=== PATIENT | female | born 1940 | race Caucasian/White ===

== ENCOUNTER 2022-11-28 13:21 | Observation (INO) ==
[2022-11-28 14:05] LABS: Basophils # (auto) 0.05 K/uL (0-0.2); Basophils % (auto) 0.7 %; Eosinophils # (auto) 0.07 K/uL (0-0.50); Eosinophils % (auto) 0.9 %; Hematocrit (blood only) 35.2 % (37.0-47.0); Hemoglobin 11.8 g/dl (12.0-16.0); Immature Granulocytes # (auto) 0.03 K/uL (0.01-0.20); Immature Granulocytes % (auto) 0.4 %; Lymphocytes # (auto) 1.29 K/uL (1.2-3.4); Mean Corpuscular Hemoglobin 30.6 pg (25.0-34.0); Mean Corpuscular Hgb Conc 33.5 g/dL (32.0-36.0); Mean Corpuscular Volume 91.2 fL (80.0-100.0); Mean Platelet Volume 9.9 fL (9.4-12.4); Monocytes # (auto) 0.63 K/uL (0.11-0.59); Monocytes % (auto) 8.3 %; Neutrophils # (auto) 5.54 K/uL (1.40-6.50); Neutrophils % (auto) 72.7 %; Platelet Count 156 K/uL (130-400); RDW Standard Deviation 42.4 fL (36.4-46.3); Red Blood Count 3.86 M/uL (4.20-5.40); White Blood Count 7.61 K/ul (4.8-10.8)
[2022-11-28] MEDS ORDERED: NITROGLYCERIN 2% OINTMENT 30GM TUBE EXT STA (14:12)
[2022-11-28 14:23] LABS: Albumin Globulin Ratio 1.4 (0.9-2); BUN Creatinine Ratio 13.5 (10-20); Bilirubin,Total 0.6 mg/dl (0.2-1.0); Calcium 9.2 mg/dl (8.6-10.3); Creatinine Clr Calc Pharmacy 30.1 ml/min; Est GFR (African American) 43.6 ml/min; Est GFR (Non-African American) 37.7 ml/min; Globulin 2.8 gm/dl (2.5-4.0); Potassium 3.4 mmol/L (3.5-5.1); Total Protein 6.8 gm/dl (6.0-8.3)
[2022-11-28 14:28] LABS: Troponin I High Sensitivity 7.7 pg/ml (0-14)
--- NOTE | 2022-11-28 14:29 | XRay Report ---
XR chest 1V not portable HISTORY: Chest pain, nonspecific COMPARISON: None. FINDINGS: No pneumothorax or no pleural effusions. The cardiac silhouette is mildly enlarged. No foca l lung consolidations to suggest pneumonia. No evidence for pulmonary edema. No acute fractures ident ified. IMPRESSION: Mild cardiomegaly. Otherwise, no acute process within the chest. ACT 112: Negative or not required by law. Electronically signed by: Goran Del Valle M.D. 11/28/2022 2:28 PM
--- NOTE | 2022-11-28 14:30 | Emergency Department Note ---
Impression & Plan Precordial chest pain, Vomiting ED Provider Note NAME: CHANTAL VARGAS AGE: 82 SEX: F : 1940 ARRIVES VIA: Ambulance INFORMANT: [Patient][family] ED PROVIDER(S): [Dylon Arreaga MD] CHIEF COMPLAINT: Cardiac assessment HISTORY OF PRESENT ILLNESS: The patient is an 82-year-old female who states that yesterday, she thought she was having some gas as she felt some discomfort across the chest. It seemed to start after she had eaten. It went away eventually. Today, when she first got up and around, she began having the same pain but it was more severe. It went into the back and her shoulders. She did vomit at one point. She was not short of breath. She has not had cough, cold or congestion. She has no history of [place], but she states that she is hypertensive. The patient states that on the way here, she was given around 3 sprays of nitroglycerin and 4 baby aspirin. Her pain is markedly improved. PMHx/PSHx: See Below SOCIAL HISTORY: See Below. PHYSICAL EXAM: GENERAL: Patient is in no acute distress. HEENT: No acute trauma, normocephalic atraumatic, mucous membranes moist, no na donato congestion. NECK: No stridor, no adenopathy, no meningismus, trachea is midline. LUNGS: Clear to auscultation bilaterally, no wheeze, no rhonchi, breath sounds equal. HEART: Without murmurs gallops or rubs, regular rate and rhythm. Chest: Nontender chest wall. ABDOMEN: Soft, mildly tender in the epigastrium, no distention. EXTREMITIES: No cyanosis or edema, full range of motion of all the joints without pain or difficulty, no signs for acute trauma. NEUROLOGIC: Oriented x 3, no acute motor or sensory deficits, no focal weakness. SKIN: No rash, no jaundice, no diaphoresis. DIFFERENTIAL DIAGNOSIS: Aortic dissection, [place], pancreatitis, biliary colic, acute cholecystitis, musculoskeletal pain, among others. EMERGENCY DEPARTMENT COURSE/PROCEDURES: Prior/Outside records reviewed: EMS notes. ECG per my interpretation: Indication was chest pain. The ECG shows a normal sinus rhythm with a rate of 77. LVH is present. There are some biphasic T waves and some T wave inversion in the lateral leads. There is no ST elevation, no PVCs. The QTc is 418. No old ECGs available for comparison. Continuous Cardiac Monitoring per my interpretation: An order was placed for continuous cardiac monitoring. The monitor shows a rate of 85 with normal sinus rhythm. MEDICAL DECISION MAKING: There is no leukocytosis. A very mild anemia was seen. There was a normal platelet count. The potassium was slightly low but not in need of emergent correction. A mild creatinine elevation was seen. No concerning liver enzyme elevation. No evidence for pancreatitis. The patient appeared to be in a euthyroid state. ECG showed a normal sinus rhythm, LVH was seen. No obvious ST elevation. Cardiac enzyme testing x1 was not consistent with acute cardiac injury. COVID test returned negative. Chest film did not show mediastinal widening, pneumonia or pneumothorax per my review. Chest CT did not show dissection. There was no pneumonia. An abnormality to the gallbladder was questioned. Gallbladder ultrasound showed what they felt was likely a normal gallbladder however, the study did show cysts on the liver making the gallbladder interpretation difficult, a CT of the abdomen/pelvis was recommended for better visualization if clinically indicated. The patient had presented with chest pain that resolved with nitroglycerin and aspirin. She was given nitroglycerin paste, 1 inch. She received IV saline, 500 cc. The patient is resting comfortably. Her blood pressure is controlled. She is not febrile. I do think the patient requires a hospital stay and further cardiac work-up. She will also need the liver further assessed. I did speak with the patient and family, I spoke with case management, the on-call hospitalist was consulted. DISPOSITION: Patient's presentation and findings warrant a hospital stay. Past Med/Surg History Medical History Hypertension Social History Smoking Status: Never smoker Preferred Language: Swedish Feels Safe at Home: Yes Allergies Allergies Allergy/AdvReac Type Severity Reaction Status Date / Time oxycodone Allergy Nausea Verified 11/28/22 13:51 Home Meds Home Medications Medication Instructions Recorded Confirmed aspirin 81 mg chewable tablet 81 mg PO DAILY 11/28/22 11/28/22 lisinopril 20 mg tablet 20 mg PO DAILY 11/28/22 11/28/22 loratadine 10 mg capsule 10 mg PO DAILY 11/28/22 11/28/22 metoprolol tartrate 25 mg tablet 25 mg PO DAILY 11/28/22 11/28/22 potassium chloride 20 mEq 20 meq PO BID 11/28/22 11/28/22 tablet,extended release(part/cryst) Results & Data (ED) Vital Signs Vital Signs - 24 hr 11/28/22 13:44 11/28/22 13:44 11/28/22 13:44 Temperature 36.5 C Temperature Source Oral Pulse Rate 85 Pulse Rate [Left Apical] Pulse Rate [Left Finger] Pulse Rhythm Regular Pulse Strength Normal Respiratory Rate 18 Respiratory Effort / Characteristics Non-Labored Spontaneous Respiratory Depth Normal Respiratory Pattern Regular Blood Pressure 140/67 Blood Pressure [Left Arm] Blood Pressure [Right Arm] Blood Pressure Mean 91 Blood Pressure Mean [Left Arm] Blood Pressure Mean [Right Arm] Blood Pressure Position Sitting Blood Pressure Position [Left Arm] Pulse Oximetry 98 95 95 Oxygen Delivery Method Room Air Room Air Room Air Sepsis Recent Fever Within 48 Hours No Sepsis New/Unexplained Change in Mental Status No Sepsis Action Taken by Nursing No Action Required 11/28/22 13:35 11/28/22 14:40 11/28/22 15:21 Temperature Temperature Source Pulse Rate 80 Pulse Rate [Left Apical] 75 Pulse Rate [Left Finger] 78 Pulse Rhythm Pulse Strength Respiratory Rate 20 19 Respiratory Effort / Characteristics Respiratory Depth Normal Respiratory Pattern Blood Pressure Blood Pressure [Left Arm] 138/80 Blood Pressure [Right Arm] 142/61 H Blood Pressure Mean Blood Pressure Mean [Left Arm] 99 Blood Pressure Mean [Right Arm] 88 Blood Pressure Position Blood Pressure Position [Left Arm] Sitting Pulse Oximetry 96 95 Oxygen Delivery Method Room Air Room Air Sepsis Recent Fever Within 48 Hours Sepsis New/Unexplained Change in Mental Status Sepsis Action Taken by Nursing 11/28/22 16:21 11/28/22 17:45 11/28/22 17:00 Temperature Temperature Source Pulse Rate 71 72 Pulse Rate [Left Apical] Pulse Rate [Left Finger] 70 Pulse Rhythm Pulse Strength Respiratory Rate 15 20 Respiratory Effort / Characteristics Respiratory Depth Respiratory Pattern Blood Pressure 134/66 Blood Pressure [Left Arm] Blood Pressure [Right Arm] 144/62 H Blood Pressure Mean 88 Blood Pressure Mean [Left Arm] Blood Pressure Mean [Right Arm] 89 Blood Pressure Position Blood Pressure Position [Left Arm] Pulse Oximetry 94 94 Oxygen Delivery Method Room Air Room Air Sepsis Recent Fever Within 48 Hours Sepsis New/Unexplained Change in Mental Status Sepsis Action Taken by Nursing 11/28/22 18:00 11/28/22 18:22 11/28/22 19:00 Temperature Temperature Source Pulse Rate 73 75 74 Pulse Rate [Left Apical] Pulse Rate [Left Finger] Pulse Rhythm Pulse Strength Respiratory Rate 24 16 24 Respiratory Effort / Characteristics Respiratory Depth Respiratory Pattern Blood Pressure 126/64 137/71 138/67 Blood Pressure [Left Arm] Blood Pressure [Right Arm] Blood Pressure Mean 84 93 90 Blood Pressure Mean [Left Arm] Blood Pressure Mean [Right Arm] Blood Pressure Position Blood Pressure Position [Left Arm] Pulse Oximetry 95 94 93 Oxygen Delivery Method Room Air Room Air Room Air Sepsis Recent Fever Within 48 Hours Sepsis New/Unexplained Change in Mental Status Sepsis Action Taken by Nursing 11/28/22 20:00 11/28/22 21:00 Temperature Temperature Source Pulse Rate 73 72 Pulse Rate [Left Apical] Pulse Rate [Left Finger] Pulse Rhythm Pulse Strength Respiratory Rate 20 23 Respiratory Effort / Characteristics Respiratory Depth Respiratory Pattern Blood Pressure 144/69 H 152/70 H Blood Pressure [Left Arm] Blood Pressure [Right Arm] Blood Pressure Mean 94 97 Blood Pressure Mean [Left Arm] Blood Pressure Mean [Right Arm] Blood Pressure Position Blood Pressure Position [Left Arm] Pulse Oximetry 93 95 Oxygen Delivery Method Room Air Room Air Sepsis Recent Fever Within 48 Hours Sepsis New/Unexplained Change in Mental Status Sepsis Action Taken by [facility] Medications Current Medication List: was personally reviewed by me Laboratory Data Attestation: I reviewed the patient's lab results. 11/28/22 13:40 11/28/22 13:40 Lab Results 11/28/22 11/28/22 11/28/22 Range/Units 13:40 13:40 14:08 WBC 7.61 (4.8-10.8) K/ul RBC 3.86 L (4.20-5.40) M/uL Hgb 11.8 L (12.0-16.0) g/dl Hct 35.2 L (37.0-47.0) % MCV 91.2 (80.0-100.0) fL MCH 30.6 (25.0-34.0) pg MCHC 33.5 (32.0-36.0) g/dL RDW Std Deviation 42.4 (36.4-46.3) fL RDW Coeff of Afia 13.0 (11.5-14.5) % Plt Count 156 (130-400) K/uL MPV 9.9 (9.4-12.4) fL Immature Gran % (Auto) 0.4 % Neut % (Auto) 72.7 % Lymph % (Auto) 17.0 % [place] % (Auto) 8.3 % Eos % (Auto) 0.9 % Baso % (Auto) 0.7 % Reticulocyte % (Auto) (0.5-2.0) % Neut # (Auto) 5.54 (1.40-6.50) K/uL Lymph # (Auto) 1.29 (1.2-3.4) K/uL [place] # (Auto) 0.63 H (0.11-0.59) K/uL Eos # (Auto) 0.07 (0-0.50) K/uL Baso # (Auto) 0.05 (0-0.2) K/uL Reticulocyte # (0.02-0.10) 10^6/uL Immature Gran # (Auto) 0.03 (0.01-0.20) K/uL APTT (21.0-31.0) Seconds PTT Ratio Sodium 139 (136-145) mmol/L Potassium 3.4 L (3.5-5.1) mmol/L Chloride 108 H (98-107) mmol/L Carbon Dioxide 23 (21-32) mmol/L Anion Gap 8 (3-11) BUN 18 (6-23) mg/dl Creatinine 1.33 H (0.6-1.2) mg/dl Est Cr Clr Drug Dosing 30.1 ml/min Est GFR ( Amer) 43.6 ml/min Est GFR (Non-Af Amer) 37.7 ml/min BUN/Creatinine Ratio 13.5 (10-20) Glucose 139 H (70-99(Fasting)) mg/dl Calcium 9.2 (8.6-10.3) mg/dl Magnesium 2.0 (1.7-2.4) mg/dl Iron (35-150) mcg/dl Transferrin (200-360) mg/dl Ferritin (8-388) ng/ml Total Bilirubin 0.6 (0.2-1.0) mg/dl AST 27 (13-39) U/L ALT 22 (7-52) U/L Alkaline Phosphatase 63 (34-104) U/L Troponin I High Sens 7.7 (0-14) pg/ml Total Protein 6.8 (6.0-8.3) gm/dl Albumin 4.0 (3.4-5.0) gm/dl Globulin 2.8 (2.5-4.0) gm/dl Albumin/Globulin Ratio 1.4 (0.9-2) Lipase 24 (11-82) U/L Vitamin B12 (180-914) pg/ml Folate (>5.38) ng/ml TSH 0.788 (0.300-4.500) uIu/ml SARS-CoV-2, RNA, NAAT (NEGATIVE) 11/28/22 11/28/22 11/28/22 Range/Units 19:38 19:46 20:12 WBC (4.8-10.8) K/ul RBC (4.20-5.40) M/uL Hgb 11.3 L (12.0-16.0) g/dl Hct 32.9 L (37.0-47.0) % MCV (80.0-100.0) fL MCH (25.0-34.0) pg MCHC (32.0-36.0) g/dL RDW Std Deviation (36.4-46.3) fL RDW Coeff of Afia (11.5-14.5) % Plt Count (130-400) K/uL MPV (9.4-12.4) fL Immature Gran % (Auto) % Neut % (Auto) % Lymph % (Auto) % [place] % (Auto) % Eos % (Auto) % Baso % (Auto) % Reticulocyte % (Auto) 1.5 (0.5-2.0) % Neut # (Auto) (1.40-6.50) K/uL Lymph # (Auto) (1.2-3.4) K/uL [place] # (Auto) (0.11-0.59) K/uL Eos # (Auto) (0-0.50) K/uL Baso # (Auto) (0-0.2) K/uL Reticulocyte # 0.05 (0.02-0.10) 10^6/uL Immature Gran # (Auto) (0.01-0.20) K/uL APTT 26.5 (21.0-31.0) Seconds PTT Ratio 0.9 Sodium (136-145) mmol/L Potassium (3.5-5.1) mmol/L Chloride (98-107) mmol/L Carbon Dioxide (21-32) mmol/L Anion Gap (3-11) BUN (6-23) mg/dl Creatinine (0.6-1.2) mg/dl Est Cr Clr Drug Dosing ml/min Est GFR ( Amer) ml/min Est GFR (Non-Af Amer) ml/min BUN/Creatinine Ratio (10-20) Glucose (70-99(Fasting)) mg/dl Calcium (8.6-10.3) mg/dl Magnesium (1.7-2.4) mg/dl Iron (35-150) mcg/dl Transferrin (200-360) mg/dl Ferritin (8-388) ng/ml Total Bilirubin (0.2-1.0) mg/dl AST (13-39) U/L ALT (7-52) U/L Alkaline Phosphatase (34-104) U/L Troponin I High Sens (0-14) pg/ml Total Protein (6.0-8.3) gm/dl Albumin (3.4-5.0) gm/dl Globulin (2.5-4.0) gm/dl Albumin/Globulin Ratio (0.9-2) Lipase (11-82) U/L Vitamin B12 (180-914) pg/ml Folate (>5.38) ng/ml TSH (0.300-4.500) uIu/ml SARS-CoV-2, RNA, NAAT NEGATIVE (NEGATIVE) 11/28/22 11/28/22 Range/Units 20:12 20:12 WBC (4.8-10.8) K/ul RBC (4.20-5.40) M/uL Hgb (12.0-16.0) g/dl Hct (37.0-47.0) % MCV (80.0-100.0) fL MCH (25.0-34.0) pg MCHC (32.0-36.0) g/dL RDW Std Deviation (36.4-46.3) fL RDW Coeff of Afia (11.5-14.5) % Plt Count (130-400) K/uL MPV (9.4-12.4) fL Immature Gran % (Auto) % Neut % (Auto) % Lymph % (Auto) % [place] % (Auto) % Eos % (Auto) % Baso % (Auto) % Reticulocyte % (Auto) (0.5-2.0) % Neut # (Auto) (1.40-6.50) K/uL Lymph # (Auto) (1.2-3.4) K/uL [place] # (Auto) (0.11-0.59) K/uL Eos # (Auto) (0-0.50) K/uL Baso # (Auto) (0-0.2) K/uL Reticulocyte # (0.02-0.10) 10^6/uL Immature Gran # (Auto) (0.01-0.20) K/uL APTT (21.0-31.0) Seconds PTT Ratio Sodium (136-145) mmol/L Potassium (3.5-5.1) mmol/L Chloride (98-107) mmol/L Carbon Dioxide (21-32) mmol/L Anion Gap (3-11) BUN (6-23) mg/dl Creatinine (0.6-1.2) mg/dl Est Cr Clr Drug Dosing ml/min Est GFR ( Amer) ml/min Est GFR (Non-Af Amer) ml/min BUN/Creatinine Ratio (10-20) Glucose (70-99(Fasting)) mg/dl Calcium (8.6-10.3) mg/dl Magnesium (1.7-2.4) mg/dl Iron 24 L (35-150) mcg/dl Transferrin 170 L (200-360) mg/dl Ferritin 284.8 (8-388) ng/ml Total Bilirubin (0.2-1.0) mg/dl AST (13-39) U/L ALT (7-52) U/L Alkaline Phosphatase (34-104) U/L Troponin I High Sens 6.4 (0-14) pg/ml Total Protein (6.0-8.3) gm/dl Albumin (3.4-5.0) gm/dl Globulin (2.5-4.0) gm/dl Albumin/Globulin Ratio (0.9-2) Lipase (11-82) U/L Vitamin B12 529 (180-914) pg/ml Folate > 22.30 (>5.38) ng/ml TSH (0.300-4.500) uIu/ml SARS-CoV-2, RNA, NAAT (NEGATIVE) Administered Medications Potassium Chloride/Sodium Chloride (Normal Saline W/20 Meq Kcl) 20 meq in 1,000 mls @ 75 mls/hr IV .[id number] ONE; Protocol Stop: 11/29/22 08:53 Last Admin: 11/28/22 20:39 Dose: 75 mls/hr Documented By: SKINNY Discontinued Medications Sodium Chloride (Nss 1000ml) 500 mls @ 999 mls/hr IV .Q31M ONE Stop: 11/28/22 15:02 Last Infusion: 11/28/22 14:52 Dose: 0 mls/hr Documented By: Admin: 11/28/22 14:00 Dose: 999 mls/hr Documented By: FORREST Ioversol (Optiray 320 125ml) 118 ml IV ONCE ONE Stop: 11/28/22 15:45 Last Admin: 11/28/22 15:44 Dose: 118 ml Documented By: TAVARES Nitroglycerin (Nitroglycerin 2% Ointment 30gm Tube) 1 inch EXT NOW STA Stop: 11/28/22 14:13 Last Admin: 11/28/22 15:12 Dose: 1 inch Documented By: FORREST Imaging Data Radiologist's Impression: Chest X-Ray 11/28/22 13:38 XR chest 1V not portable HISTORY: Chest pain, nonspecific COMPARISON: None. FINDINGS: No pneumothorax or no pleural effusions. The cardiac silhouette is mildly enlarged. No focal lung consolidations to suggest pneumonia. No evidence for pulmonary edema. No acute fractures identified. IMPRESSION: Mild cardiomegaly. Otherwise, no acute process within the chest. ACT 112: Negative or not required by law. Electronically signed by: Goran Del Valle M.D. 11/28/2022 2:28 PM Chest CTA 11/28/22 14:32 CHEST CTA for AORTIC DISSECTION CT DOSE: 587.26 mGy.cm HISTORY: Atypical chest pain. Hypertension. TECHNIQUE: Multiaxial CT images of the chest were performed both before and after the intravenous administration of contrast to evaluate the aorta. 3D/MIP images were also obtained. Sagittal and coronal reformations were also reviewed. A dose lowering technique was utilized adhering to the principles of ALARA. COMPARISON STUDY: None. FINDINGS: Noncontrast imaging through the chest shows no evidence for an intramural hematoma within the thoracic aorta. There is normal caliber thoracic aorta with no evidence for a dissection. No filling defects within the pulmonary arteries to suggest a pulmonary embolus. The heart is mildly enlarged. No pleural or pericardial effusions. There are calcified right hilar lymph nodes. No mediastinal or hilar lymphadenopathy. Normal caliber esophagus. Limited views of the upper abdomen demonstrate a normal spleen and adrenal glands. There is a partially visualized abnormality within the right upper quadrant which appears to be within the gallbladder. The gallbladder appears distended and there is abnormal density within the gallbladder which could represent sludge or a mass. This is not well visualized on this study. Additional hypodensities within the liver favor cysts. No acute fractures identified. No pneumothorax. The central airways are patent. Bibasilar linear densities consistent with subsegmental atelectasis. Otherwise, no focal lung consolidations to suggest a pneumonia. No evidence for pulmonary edema. IMPRESSION: 1. No evidence for an aortic dissection. 2. No evidence for a pulmonary embolus. 3. No focal lung consolidations to suggest a pneumonia. 4. Mild cardiomegaly. 5. Abnormality within the right upper quadrant which appears to represent the gallbladder. This could represent sludge within the distended gallbladder or gallbladder mass. This is only partially imaged on this study. Follow-up right or quadrant ultrasound or contrast-enhanced abdomen CT recommended for further evaluation. ACT 112: Negative or not required by law. Electronically signed by: Goran Del Valle M.D. 11/28/2022 4:34 PM Gallbladder Ultrasound 11/28/22 16:50 ABDOMINAL ULTRASOUND, RIGHT UPPER QUADRANT HISTORY: back pain, abd chest ct. COMPARISON: Chest CTA 11/28/2022. FINDINGS: Pancreas: The pancreas demonstrates a normal echotexture. Liver: Multiple hepatic cysts with the dominant cyst in the right hepatic lobe measuring 6.9 cm. Gallbladder: At the expected location of the gallbladder there is a large complex cystic area containing hyperechoic material. This corresponds to the CT abnormality. This is difficult to characterize but could represent hemorrhage within a hepatic cyst rather than the gallbladder. There is an adjacent cystic focus which could represent the normal gallbladder. No associated color flow within the hyperechoic areas. Therefore, a gallbladder mass is considered less likely but not entirely excluded. CBD: 6 mm. Right kidney: A 1.7 cm upper pole cyst. Trace perinephric fluid is noted. No hydronephrosis. IMPRESSION: At the expected location of the gallbladder there is a large complex cystic area containing hyperechoic material. This corresponds to the CT abnormality. This is difficult to characterize but could represent hemorrhage within a hepatic cyst rather than the gallbladder. There is an adjacent cystic focus which could represent the normal gallbladder. No associated color flow within the hy perechoic areas. Therefore, a gallbladder mass is considered less likely but not entirely excluded. Further characterization with a dedicated contrast-enhanced abdominal CT or abdominal MRI is recommended for further evaluation. ACT 112: Negative or not required by law. Electronically signed by: Goran Del Valle M.D. 11/28/2022 7:57 PM Discharge Plan Visit Data Chief Complaint: Cardiac Assessment ED Provider: Dylon Arreaga Discharge Problem: Precordial chest pain, Vomiting Patient Disposition: Admitted As Inpatient Condition: Fair Forms Stand Alone Forms: [facility] Prescriptions Prescriptions: No Action lisinopril 20 mg tablet 20 mg PO DAILY potassium chloride 20 mEq tablet,ER particles/crystals 20 meq PO BID aspirin 81 mg Tablet,Chewable 81 mg PO DAILY metoprolol tartrate 25 mg tablet 25 mg PO DAILY loratadine 10 mg Capsule 10 mg PO DAILY Referrals Referrals: PCP,NO [Physician] -
[2022-11-28] MEDS ORDERED: SODIUM CHLORIDE 0.9% 1000ML 500 ML IV ONE (14:32)
[2022-11-28] MEDS ORDERED: OPTIRAY 320 125ml IV ONE (15:44)
--- NOTE | 2022-11-28 16:36 | CT Scan Report ---
CHEST CTA for AORTIC DISSECTION CT DOSE: 587.26 mGy.cm HISTORY: Atypical chest pain. Hypertension. TECHNIQUE: Multiaxial CT images of the chest were performed both before and after the intravenous adm inistration of contrast to evaluate the aorta. 3D/MIP images were also obtained. Sagittal and coronal reformations were also reviewed. A dose lowering technique was utilized adhering to the principles of ALARA. COMPARISON STUDY: None. FINDINGS: Noncontrast imaging through the chest shows no evidence for an intramural hematoma within t he thoracic aorta. There is normal caliber thoracic aorta with no evidence for a dissection. No filli ng defects within the pulmonary arteries to suggest a pulmonary embolus. The heart is mildly enlarged . No pleural or pericardial effusions. There are calcified right hilar lymph nodes. No mediastinal or hilar lymphadenopathy. Normal caliber esophagus. Limited views of the upper abdomen demonstrate a no rmal spleen and adrenal glands. There is a partially visualized abnormality within the right upper qu adrant which appears to be within the gallbladder. The gallbladder appears distended and there is abn ormal density within the gallbladder which could represent sludge or a mass. This is not well visuali zed on this study. Additional hypodensities within the liver favor cysts. No acute fractures identifi ed. No pneumothorax. The central airways are patent. Bibasilar linear densities consistent with subse gmental atelectasis. Otherwise, no focal lung consolidations to suggest a pneumonia. No evidence for pulmonary edema. IMPRESSION: 1. No evidence for an aortic dissection. 2. No evidence for a pulmonary embolus. 3. No focal lung consolidations to suggest a pneumonia. 4. Mild cardiomegaly. 5. Abnormality within the right upper quadrant which appears to represent the gallbladder. This could represent sludge within the distended gallbladder or gallbladder mass. This is only partially imaged on this study. Follow-up right or quadrant ultrasound or contrast-enhanced abdomen CT recommended fo r further evaluation. ACT 112: Negative or not required by law. Electronically signed by: Goran Del Valle M.D. 11/28/2022 4:34 PM
[2022-11-28] MEDS ORDERED: NSS + 20MEQ KCL 20 MEQ/1,000 ML BAG IV ONE (19:34)
--- NOTE | 2022-11-28 19:58 | Ultrasound Report ---
ABDOMINAL ULTRASOUND, RIGHT UPPER QUADRANT HISTORY: back pain, abd chest ct. COMPARISON: Chest CTA 11/28/2022. FINDINGS: Pancreas: The pancreas demonstrates a normal echotexture. Liver: Multiple hepatic cysts with the dominant cyst in the right hepatic lobe measuring 6.9 cm. Gallbladder: At the expected location of the gallbladder there is a large complex cystic area contain ing hyperechoic material. This corresponds to the CT abnormality. This is difficult to characterize b ut could represent hemorrhage within a hepatic cyst rather than the gallbladder. There is an adjacent cystic focus which could represent the normal gallbladder. No associated color flow within the hyper echoic areas. Therefore, a gallbladder mass is considered less likely but not entirely excluded. CBD: 6 mm. Right kidney: A 1.7 cm upper pole cyst. Trace perinephric fluid is noted. No hydronephrosis. IMPRESSION: At the expected location of the gallbladder there is a large complex cystic area containing hyperecho ic material. This corresponds to the CT abnormality. This is difficult to characterize but could repr esent hemorrhage within a hepatic cyst rather than the gallbladder. There is an adjacent cystic focus which could represent the normal gallbladder. No associated color flow within the hyperechoic areas. Therefore, a gallbladder mass is considered less likely but not entirely excluded. Further character ization with a dedicated contrast-enhanced abdominal CT or abdominal MRI is recommended for further e valuation. ACT 112: Negative or not required by law. Electronically signed by: Goran Del Valle M.D. 11/28/2022 7:57 PM
[2022-11-28 20:30] LABS: Partial Thromboplastin Ratio 0.9; Partial Thromboplastin Time 26.5 Seconds (21.0-31.0)
--- NOTE | 2022-11-28 20:53 | History & Physical Report ---
Date of Service November 28, 2022 Assessment & Plan (1) Atypical chest pain: Plan: Likely referred pain from possible hepatobiliary pathology on GB ultrasound Either aspirin or nitroglycerin administered by EMS at patient's home led to relief of discomfort. New onset anemia Possibly from hepatobiliary bleed hx PSVT, patient NSR, patient currently not taking previous metoprolol per section hx PVD hypertension, slightly elevated Prediabetes, hemoglobin A1c of 5.3 last July 2022 CRI, creatinine at baseline OBS PCU General surgery consultation Re: Abnormal gallbladder ultrasound N.p.o. for now Follow troponin, TTE, cardiology consult if with progression PCU transout if next troponin within normal limits and patient chest pain-free overnight. Chest pain likely noncardiac. Hold aspirin for now given possible hepatobiliary bleed Anemia work-up, transfuse PRBC if hemoglobin less than 8 and or for symptomatic anemia. DVT prophylaxis. SCDs Re: Possible hepatobiliary bleed Full code Patient daughter requesting updates from providers. Ms. Ladan Pat, contact #[phone]. Case discussed with Dr. Bray of General Surgery. She recommends MRI of the abdomen (over CT abdomen pelvis, to study given patient recent IV dye load and baseline kidney dysfunction) to further investigate abnormal gallbladder ultrasound result. Text document was generated using [employer] voice recognition software. It may contain grammatical or spelling errors. Kindly contact undersigned for clarification of any documentation item in question. History of Present Illness Chief Complaint: Abdominal pain, chest pain Primary Care Provider: Rebeca Swift DO History obtained from patient, family, and records. Medical history significant for PSVT, PVD, hypertension, hyperlipidemia, prediabetes, CRI (baseline creatinine 1.4) Last night, patient noted epigastric discomfort after consuming chicken Parmesan at a local restaurant for her birthday dinner. Gassy feeling which persisted throughout the day today. Pain will go to her chest and to her back and shoulders. Subsequent emesis. No fever, no chills. Denies black/bloody stools/hematuria. Patient called daughter who told her to call EMS. Symptoms improved with aspirin and nitroglycerin administration. Patient currently comfortable. 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 Allergies Allergy/AdvReac Type Severity Reaction Status Date / Time oxycodone Allergy Nausea Verified 11/28/22 13:51 Home Medications Medication Instructions Recorded Confirmed Type aspirin 81 mg chewable tablet 81 mg PO DAILY 11/28/22 11/28/22 History lisinopril 20 mg tablet 20 mg PO DAILY 11/28/22 11/28/22 History loratadine 10 mg capsule 10 mg PO DAILY 11/28/22 11/28/22 History potassium chloride 20 mEq 20 meq PO BID 11/28/22 11/28/22 History tablet,extended release(part/cryst) Past Med/Surg History Medical History Hypertension Social History Smoking Status: Never smoker Do You Dip or Chew Tobacco: No; Hx Alcohol Use: No Hx Substance Use: No Preferred Language: Nigerien Communication Ability: Effective Investigator Welfare Required: No Beliefs That Will Affect Care: None Current Living Situation: Alone Current Living Situation Comment: alone, son on weekends Other Information That Helps Us Care for You: No Feels Safe at Home: Yes Safety Concerns: Feels Safe At This Time Assistive Devices: None Review of Systems Review of Systems: As per HPI, all other systems reviewed and negative Physical Exam Physical Exam: GENERAL: Comfortable, frail, no respiratory distress SKIN: Pallor, warm HEENT: Pale palpebral conjunctivae, no ptosis, dry buccal mucosa NECK : Supple, no tenderness CHEST : CTA, no tenderness HEART : RRR, no obvious murmurs ABDOMEN: Some distention, epigastric tenderness EXTREMITIES : No LE swelling/tenderness, no other conspicuous deformities noted NEUROLOGIC : Coherent, no facial asymmetry, no other gross focality Results & Data Results & Data Vital Signs (Past 12 Hours) Vital Signs Temp Pulse Pulse Pulse Resp BP BP 11/28/22 20:00 73 20 144/69 H 11/28/22 19:00 74 24 138/67 11/28/22 18:22 75 16 137/71 11/28/22 18:00 73 24 126/64 11/28/22 17:00 72 20 134/66 11/28/22 17:45 71 11/28/22 16:21 70 15 11/28/22 15:21 75 19 11/28/22 14:40 78 20 138/80 11/28/22 13:35 80 11/28/22 13:44 11/28/22 13:44 11/28/22 13:44 36.5 C 85 18 140/67 BP Pulse Ox O2 Del Method 11/28/22 20:00 93 Room Air 11/28/22 19:00 93 Room Air 11/28/22 18:22 94 Room Air 11/28/22 18:00 95 Room Air 11/28/22 17:00 94 Room Air 11/28/22 17:45 11/28/22 16:21 144/62 H 94 Room Air 11/28/22 15:21 142/61 H 95 Room Air 11/28/22 14:40 96 Room Air 11/28/22 13:35 11/28/22 13:44 95 Room Air 11/28/22 13:44 95 Room Air 11/28/22 13:44 98 Room Air Laboratory Results Laboratory Results WBC 7.61 K/ul (4.8-10.8) 11/28/22 13:40 RBC 3.86 M/uL (4.20-5.40) L 11/28/22 13:40 Hgb 11.8 g/dl (12.0-16.0) L 11/28/22 13:40 Hct 35.2 % (37.0-47.0) L 11/28/22 13:40 MCV 91.2 fL (80.0-100.0) 11/28/22 13:40 MCH 30.6 pg (25.0-34.0) 11/28/22 13:40 MCHC 33.5 g/dL (32.0-36.0) 11/28/22 13:40 RDW Std Deviation 42.4 fL (36.4-46.3) 11/28/22 13:40 RDW Coeff of Afia 13.0 % (11.5-14.5) 11/28/22 13:40 Plt Count 156 K/uL (130-400) 11/28/22 13:40 MPV 9.9 fL (9.4-12.4) 11/28/22 13:40 Immature Gran % (Auto) 0.4 % 11/28/22 13:40 Neut % (Auto) 72.7 % 11/28/22 13:40 Lymph % (Auto) 17.0 % 11/28/22 13:40 [place] % (Auto) 8.3 % 11/28/22 13:40 Eos % (Auto) 0.9 % 11/28/22 13:40 Baso % (Auto) 0.7 % 11/28/22 13:40 Neut # (Auto) 5.54 K/uL (1.40-6.50) 11/28/22 13:40 Lymph # (Auto) 1.29 K/uL (1.2-3.4) 11/28/22 13:40 [place] # (Auto) 0.63 K/uL (0.11-0.59) H 11/28/22 13:40 Eos # (Auto) 0.07 K/uL (0-0.50) 11/28/22 13:40 Baso # (Auto) 0.05 K/uL (0-0.2) 11/28/22 13:40 Immature Gran # (Auto) 0.03 K/uL (0.01-0.20) 11/28/22 13:40 APTT 26.5 Seconds (21.0-31.0) 11/28/22 19:46 PTT Ratio 0.9 11/28/22 19:46 Sodium 139 mmol/L (136-145) 11/28/22 13:40 Potassium 3.4 mmol/L (3.5-5.1) L 11/28/22 13:40 Chloride 108 mmol/L (98-107) H 11/28/22 13:40 Carbon Dioxide 23 mmol/L (21-32) 11/28/22 13:40 Anion Gap 8 (3-11) 11/28/22 13:40 BUN 18 mg/dl (6-23) 11/28/22 13:40 Creatinine 1.33 mg/dl (0.6-1.2) H 11/28/22 13:40 Est Cr Clr Drug Dosing 30.1 ml/min 11/28/22 13:40 Est GFR ( Amer) 43.6 ml/min 11/28/22 13:40 Est GFR (Non-Af Amer) 37.7 ml/min 11/28/22 13:40 BUN/Creatinine Ratio 13.5 (10-20) 11/28/22 13:40 Glucose 139 mg/dl (70-99(Fasting)) H 11/28/22 13:40 Calcium 9.2 mg/dl (8.6-10.3) 11/28/22 13:40 Magnesium 2.0 mg/dl (1.7-2.4) 11/28/22 13:40 Total Bilirubin 0.6 mg/dl (0.2-1.0) 11/28/22 13:40 AST 27 U/L (13-39) 11/28/22 13:40 ALT 22 U/L (7-52) 11/28/22 13:40 Alkaline Phosphatase 63 U/L (34-104) 11/28/22 13:40 Troponin I High Sens 7.7 pg/ml (0-14) 11/28/22 13:40 Total Protein 6.8 gm/dl (6.0-8.3) 11/28/22 13:40 Albumin 4.0 gm/dl (3.4-5.0) 11/28/22 13:40 Globulin 2.8 gm/dl (2.5-4.0) 11/28/22 13:40 Albumin/Globulin Ratio 1.4 (0.9-2) 11/28/22 13:40 Lipase 24 U/L (11-82) 11/28/22 13:40 TSH 0.788 uIu/ml (0.300-4.500) 11/28/22 14:08 SARS-CoV-2, RNA, NAAT NEGATIVE (NEGATIVE) 11/28/22 19:38 Impressions Chest X-Ray 11/28/22 13:38 XR chest 1V not portable HISTORY: Chest pain, nonspecific COMPARISON: None. FINDINGS: No pneumothorax or no pleural effusions. The cardiac silhouette is mildly enlarged. No focal lung consolidations to suggest pneumonia. No evidence for pulmonary edema. No acute fractures identified. IMPRESSION: Mild cardiomegaly. Otherwise, no acute process within the chest. ACT 112: Negative or not required by law. Electronically signed by: Goran Del Valle M.D. 11/28/2022 2:28 PM Chest CTA 11/28/22 14:32 CHEST CTA for AORTIC DISSECTION CT DOSE: 587.26 mGy.cm HISTORY: Atypical chest pain. Hypertension. TECHNIQUE: Multiaxial CT images of the chest were performed both before and after the intravenous administration of contrast to evaluate the aorta. 3D/MIP images were also obtained. Sagittal and coronal reformations were also reviewed. A dose lowering technique was utilized adhering to the principles of ALARA. COMPARISON STUDY: None. FINDINGS: Noncontrast imaging through the chest shows no evidence for an intr amural hematoma within the thoracic aorta. There is normal caliber thoracic aorta with no evidence for a dissection. No filling defects within the pulmonary arteries to suggest a pulmonary embolus. The heart is mildly enlarged. No pleural or pericardial effusions. There are calcified right hilar lymph nodes. No mediastinal or hilar lymphadenopathy. Normal caliber esophagus. Limited views of the upper abdomen demonstrate a normal spleen and adrenal glands. There is a partially visualized abnormality within the right upper quadrant which appears to be within the gallbladder. The gallbladder appears distended and there is abnormal density within the gallbladder which could represent sludge or a mass. This is not well visualized on this study. Additional hypodensities within the liver favor cysts. No acute fractures identified. No pneumothorax. The central airways are patent. Bibasilar linear densities consistent with subsegmental atelectasis. Otherwise, no focal lung consolidations to suggest a pneumonia. No evidence for pulmonary edema. IMPRESSION: 1. No evidence for an aortic dissection. 2. No evidence for a pulmonary embolus. 3. No focal lung consolidations to suggest a pneumonia. 4. Mild cardiomegaly. 5. Abnormality within the right upper quadrant which appears to represent the gallbladder. This could represent sludge within the distended gallbladder or gallbladder mass. This is only partially imaged on this study. Follow-up right or quadrant ultrasound or contrast-enhanced abdomen CT recommended for further evaluation. ACT 112: Negative or not required by law. Electronically signed by: Goran Del Valle M.D. 11/28/2022 4:34 PM Gallbladder Ultrasound 11/28/22 16:50 ABDOMINAL ULTRASOUND, RIGHT UPPER QUADRANT HISTORY: back pain, abd chest ct. COMPARISON: Chest CTA 11/28/2022. FINDINGS: Pancreas: The pancreas demonstrates a normal echotexture. Liver: Multiple hepatic cysts with the dominant cyst in the right hepatic lobe measuring 6.9 cm. Gallbladder: At the expected location of the gallbladder there is a large complex cystic area containing hyperechoic material. This corresponds to the CT abnormality. This is difficult to characterize but could represent hemorrhage within a hepatic cyst rather than the gallbladder. There is an adjacent cystic focus which could represent the normal gallbladder. No associated color flow within the hyperechoic areas. Therefore, a gallbladder mass is considered less likely but not entirely excluded. CBD: 6 mm. Right kidney: A 1.7 cm upper pole cyst. Trace perinephric fluid is noted. No hydronephrosis. IMPRESSION: At the expected location of the gallbladder there is a large complex cystic area containing hyperechoic material. This corresponds to the CT abnormality. This is difficult to characterize but could represent hemorrhage within a hepatic cyst rather than the gallbladder. There is an adjacent cystic focus which could represent the normal gallbladder. No associated color flow within the hyperechoic areas. Therefore, a gallbladder mass is considered less likely but not entirely excluded. Further characterization with a dedicated contrast-enhanced abdominal CT or abdominal MRI is recommended for further evaluation. ACT 112: Negative or not required by law. Electronically signed by: Goran Del Valle M.D. 11/28/2022 7:57 PM Diagnostic Findings EKG as per my interpretation :Rate 75, NSR, LAD, LAFB, LVH, septal infarct, T wave abnormalities lateral leads
[2022-11-28] MEDS ORDERED: LORazepam 2 MG/1 ML VIAL IV PRN (21:07)
[2022-11-28 21:09] LABS: Troponin I High Sensitivity 6.4 pg/ml (0-14)
[2022-11-28 21:14] LABS: Hematocrit (blood only) 32.9 % (37.0-47.0); Hemoglobin 11.3 g/dl (12.0-16.0); Reticulocyte % 1.5 % (0.5-2.0); Reticulocytes # 0.05 10^6/uL (0.02-0.10)
[2022-11-28 21:23] LABS: Ferritin 284.8 ng/ml (8-388)
[2022-11-28 21:29] LABS: Vitamin B12 529 pg/ml (180-914)
[2022-11-28] MEDS ORDERED: PROMETHAZINE HCL 6.25 MG in SODIUM CHLORIDE 0.9% 50 ML IV PRN (23:29)
[2022-11-28] MEDS ORDERED: traMADol HCL 50 MG TABLET PO PRN (23:29)
[2022-11-29] MEDS: lisinopril 2.5 MG TAB PO SCH (03:14)
[2022-11-29] MEDS: ACETAMINOPHEN 325 MG TAB PO PRN (06:15)
[2022-11-29 07:27] LABS: Basophils # (auto) 0.05 K/uL (0-0.2); Basophils % (auto) 0.8 %; Eosinophils % (auto) 1.7 %; Hematocrit (blood only) 33.6 % (37.0-47.0); Hemoglobin 11.7 g/dl (12.0-16.0); Immature Granulocytes # (auto) 0.01 K/uL (0.01-0.20); Immature Granulocytes % (auto) 0.2 %; Mean Corpuscular Hemoglobin 30.8 pg (25.0-34.0); Mean Corpuscular Hgb Conc 34.8 g/dL (32.0-36.0); Mean Corpuscular Volume 88.4 fL (80.0-100.0); Mean Platelet Volume 9.8 fL (9.4-12.4); Monocytes # (auto) 0.54 K/uL (0.11-0.59); Monocytes % (auto) 9.1 %; Neutrophils # (auto) 3.62 K/uL (1.40-6.50); Neutrophils % (auto) 61.2 %; Platelet Count 132 K/uL (130-400); RDW Coefficient of Variation 13.2 % (11.5-14.5); RDW Standard Deviation 42.2 fL (36.4-46.3); White Blood Count 5.92 K/ul (4.8-10.8)
[2022-11-29 07:43] LABS: Albumin Globulin Ratio 1.4 (0.9-2); Albumin Level 3.9 gm/dl (3.4-5.0); BUN Creatinine Ratio 11.7 (10-20); Bilirubin,Total 0.9 mg/dl (0.2-1.0); Calcium 9.3 mg/dl (8.6-10.3); Creatinine Clr Calc Pharmacy 34.8 ml/min; Est GFR (African American) 54.3 ml/min; Est GFR (Non-African American) 46.9 ml/min; Globulin 2.7 gm/dl (2.5-4.0); Potassium 3.3 mmol/L (3.5-5.1); Total Protein 6.6 gm/dl (6.0-8.3)
[2022-11-29] MEDS ORDERED: POTASSIUM CHLORIDE CRTAB 20 MEQ TABCR PO ONE (08:01)
[2022-11-29] MEDS: LORATADINE 10 MG TAB PO SCH (08:27)
--- NOTE | 2022-11-29 11:29 | Surgery Consultation ---
Date of Consultation November 29, 2022 Assessment & Plan (1) Atypical chest pain: (2) Abnormal finding on imagin82 y/o female who came in with a brief episode of atypical chest/epigastric pain. Resolved with treatment. Afebrile, HD stable no leukocytosis and asymptomatic this am. The findings on imaging are likely incidental. Questionable hepatic cyst vs GB cyst/cancer. May require further work up (biopsy if indicated by MRI) and/or a hepatobiliary surgeon for further management. MRI results pending to determine next recommended steps. MRI has been ordered and pending to be done today. I explained that we will not likely have a read until Wednesday or Wednesday. She may have a low fat diet from a surgical standpoint after MRI obtained If no medical reason to continue admission, she may go home from a surgical perspective and follow up with her PCP as an outpatient who can guide further specialist referral pending the results of the MRI. She may have chemical DVT ppx while in patient. SCDs while in bed, ambulate with assitance. History of Present Illness Reason for Consultation: Abnormal CT and US imaging Attending Physician: Charles Strickland MD History of Present Illness Mrs. Pretty is an 82 y/o female with a PMHX of PSVT, PVD, hypertension, hyperlipidemia, prediabetes, CRI. She began having epigastric pain that radiated to her b/l shoulder blades after eating dinner out. She had an episode of vomiting which did not relieve any of the discomfort. Her family called EMS and she was brought to the ED. In the ED she was afebrile with stable VS. Mrs. Pretty notes this felt similar to gas pains and says they resolved after administration Nitro tabs, ASA and the patient says she also passed some flatus after which the pain completely resolved. She had no leukocytosis. No elevation of LFTs. A CT of her abdomen was done that revealed an abnormal structure associated with the liver vs the GB. Questionably a hemorrhagic cyst from the liver, vs gallbladder mass. US was also performed and unable to delineate which structure this complex cystic mass was associated with. She denies fever or chills. The patient was admitted to the hospitalist and surgery was consulted. This am Mrs. Pretty confirms that her pain is completely resolved and has not returned. She is has had some liquids but has been made NPO again due to a scheduled MRI to better delineate the nature of this mass. Allergies Allergy/AdvReac Type Severity Reaction Status Date / Time oxycodone Allergy Nausea Verified 11/28/22 13:51 Home Medications Medication Instructions Recorded Confirmed Type aspirin 81 mg chewable tablet 81 mg PO DAILY 11/28/22 11/28/22 History lisinopril 20 mg tablet 20 mg PO DAILY 11/28/22 11/28/22 History loratadine 10 mg capsule 10 mg PO DAILY 11/28/22 11/28/22 History potassium chloride 20 mEq 20 meq PO BID 11/28/22 11/28/22 History tablet,extended release(part/cryst) Patient History Medical History Hypertension Social History Smoking Status: Never smoker Do You Dip or Chew Tobacco: No; Hx Alcohol Use: No Hx Substance Use: No Preferred Language: Montserratian Communication Ability: Effective 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 Beliefs That Will Affect Care: None Current Living Situation: Alone Current Living Situation Comment: alone, son on weekends Other Information That Helps Us Care for You: No Feels Safe at Home: Yes Safety Concerns: Feels Safe At This Time Assistive Devices: None Review of Systems Review of Systems: as stated above Physical Exam Constitutional: cooperative and comfortable; no acute distress, not ill appearing and no altered mental status Respiratory: normal respiratory effort; no respiratory distress, no labored breathing and does not use accessory muscles Gastrointestinal (Abdomen): Inspection/Auscultation: abdomen not distended Percussion/Palpation: abdomen soft; abdomen nontender and no guarding Results & Data Vital Signs (Past 12 Hours) Vital Signs Temp Pulse Pulse Pulse Resp BP Pulse Ox 11/29/22 10:56 36.8 C 78 16 147/70 H 95 11/29/22 08:00 95 H 11/29/22 07:29 36.8 C 75 14 148/73 H 94 11/29/22 06:03 87 143/93 H 11/29/22 03:12 36.7 C 84 16 132/65 93 11/28/22 23:31 80 11/28/22 23:44 36.8 C 77 16 179/83 H 95 11/28/22 23:29 36.8 C 77 16 179/83 H 95 11/28/22 23:29 Pulse Ox O2 Del Method O2 Del Method 11/29/22 10:56 Room Air 11/29/22 08:00 11/29/22 07:29 Room Air 11/29/22 06:03 11/29/22 03:12 Room Air 11/28/22 23:31 11/28/22 23:44 Room Air 11/28/22 23:29 Room Air 11/28/22 23:29 95 Room Air PG Care Time/CCT Total # of Minutes Spent Total Time Spent with Patient: Total time spent is greater than 50% in coordination of care (as documented) at patient's floor/unit and/or counseling patient: Coding Level of Care Code 89183 INT INP/OBS CARE 1/40MIN Diagnoses Atypical chest pain R07.89 Abnormal finding on imaging R93.89
--- NOTE | 2022-11-29 11:46 | Electrocardiogram Report ---
Test Reason : Blood Pressure : / mmHG Vent. Rate : 077 BPM Atrial Rate : 077 BPM P-R Int : 186 ms QRS Dur : 082 ms QT Int : 370 ms P-R-T Axes : 059 -28 066 degrees QTc Int : 418 ms Normal sinus rhythm Moderate voltage criteria for LVH, may be normal variant ( R in aVL ) Septal infarct , age undetermined Abnormal ECG No previous ECGs available Confirmed by Joshua Kan ([id number]) on 11/29/2022 11:46:14 AM Referred By: Confirmed By:Joshua Kan
[2022-11-29] MEDS ORDERED: GADOXETATE DISODIUM IV ONE (13:43)
--- NOTE | 2022-11-29 15:31 | Magnetic Resonance Report ---
MR abdomen wo/w con CLINICAL HISTORY: abn ct, epig pain TECHNIQUE: Multiplanar multisequence images were obtained of the abdomen with and without the adminis tration of contrast. COMPARISON: Comparison is made to ultrasound of the gallbladder 11/28/2022 FINDINGS: Lower chest: No acute abnormality Liver: A cluster of hepatic cysts is seen. Gallbladder and biliary tree: There is a cystic lesion in the gallbladder which contains irregular wi th layering sludge/stones, a thickened wall, and a possibly enhancing nodular density. A normal-appea ring gallbladder is noted inferior to this lesion. No intra- or extrahepatic biliary ductal dilation. Pancreas: Unremarkable, no focal lesions. Spleen: Unremarkable. Adrenals: Unremarkable. Kidneys and ureters: Bilateral renal cysts are seen. Bowel: Unremarkable. Lymph nodes Retroperitoneal: Unremarkable. Mesenteric: Unremarkable. Peritoneum: Normal Vessels: Unremarkable. Abdominal wall: Unremarkable. Bones: Unremarkable. IMPRESSION: 1. Complex extra cholecystic/hepatic lesion is seen containing layering material and a possibly enha ncing lesion. Findings are nonspecific, however this may represent a exophytic gallbladder malignancy , a complex hepatic cyst or hematoma is considered less likely. 2. Incidental note is made of renal and hepatic cysts. ACT 112: Positive. There are findings on this exam that require communication between the performing entity and the patient following Patient Test Result Information Act ([place] Act 112) guidelines. Electronically signed by: Nathanael Silva M.D. 11/29/2022 3:29 PM
--- NOTE | 2022-11-29 16:12 | Hospitalist Progress Note ---
Date of Service November 29, 2022 Assessment & Plan (1) Atypical chest pain: Plan: Atypical Chest Pain Likely referred pain from hepatobiliary pathology Had Stress X2 previously as per family Troponin X 2: Negative EKG showed age undetermined septal infarct --CTA:No evidence for an aortic dissection. No evidence for a pulmonary embolus. No focal lung consolidations to suggest a pneumonia. Mild cardiomegaly. Consider echo if needed Resume aspirin Check lipid panel Cholecystic/hepatic lesion Concern for exophytic gallbladder malignancy --MRI Abd:Complex extra cholecystic/hepatic lesion is seen containing layering material and a possibly enhancing lesion. Findings are nonspecific, however this may represent a exophytic gallbladder malignancy, a complex hepatic cyst or hematoma is considered less likely. Incidental note is made of renal and hepatic cysts. --Gall Bladder USD:At the expected location of the gallbladder there is a large complex cystic area containing hyperechoic material. This corresponds to the CT abnormality. This is difficult to characterize but could represent hemorrhage within a hepatic cyst rather than the gallbladder. There is an adjacent cystic focus which could represent the normal gallbladder. No associated color flow within the hyperechoic areas. Therefore, a gallbladder mass is considered less likely but not entirely excluded. Further characterization with a dedicated contrast-enhanced abdominal CT or abdominal MRI is recommended for further evaluation. --LFTs wnl -- Surgery on board --Consulted GI for possible biopsy N.p.o. after midnight Normocytic anemia Likely multifactorial:? Malignancy, iron deficiency Start on iron supplements as able Monitor CBC Hypokalemia Replete electrolytes as needed Other chronic conditions: PSVT PVD Prediabetes HbA1c of 5.3 last July 2022 Continue home medications Hypertension Continue lisinopril Adjust meds as needed Monitor BP CKD III Monitor renal function Avoid nephrotoxic agents as able DVT Px: SCDs Re: Possible hepatobiliary bleed, need for Procedure Code Status Full code Admission and Anticipated Discharge Date Admission Date: November 28, 2022 Subjective Patient is seen and examined at bedside Nausea, chest/shoulder pain resolved States having mild lower abdominal pain Denies any chest pain, dyspnea, dizziness Discussed with patient's family at bedside Review of Systems Review of Systems: All systems reviewed & are unremarkable except as noted in Subjective Physical Exam Physical Exam: Physical Exam: Vitals signs as noted above General Appearance:Thin, frail, elderly, no apparent distress Head: normocephalic, Atraumatic Eyes: normal inspection, EOMI Neck: supple, Trachea midline Respiratory/Chest: Normal breath sounds, CTA, No accessory muscle use Cardiovascular: S1, S2, No murmur Abdomen/GI:Soft, epigastric tender, Bowel sounds present Extremities/Musculoskeletal:normal inspection, no edema Neurologic/Psych:AAOX3, grossly no focal neurological deficits Skin: normal color, warm Results & Data Results & Data Vital Signs (Past 12 Hours) Vital Signs Temp Pulse Pulse Pulse Resp BP Pulse Ox 11/29/22 10:56 36.8 C 78 16 147/70 H 95 11/29/22 08:00 95 H 11/29/22 07:29 36.8 C 75 14 148/73 H 94 11/29/22 06:03 87 143/93 H O2 Del Method 11/29/22 10:56 Room Air 11/29/22 08:00 11/29/22 07:29 Room Air 11/29/22 06:03 Laboratory Results Short CBC 11/28/22 11/29/22 Range/Units 20:12 07:02 WBC 5.92 (4.8-10.8) K/ul Hgb 11.3 L 11.7 L (12.0-16.0) g/dl Hct 32.9 L 33.6 L (37.0-47.0) % Plt Count 132 (130-400) K/uL BMP 11/29/22 07:02 Sodium 140 Potassium 3.3 L Chloride 109 H Carbon Dioxide 24 BUN 13 Creatinine 1.11 Glucose 96 Calcium 9.3 Liver Function 11/29/22 Range/Units 07:02 Total Bilirubin 0.9 (0.2-1.0) mg/dl AST 24 (13-39) U/L ALT 21 (7-52) U/L Alkaline Phosphatase 63 (34-104) U/L Albumin 3.9 (3.4-5.0) gm/dl
[2022-11-30] MEDS: ACETAMINOPHEN 325 MG TAB PO PRN (02:25)
[2022-11-30 06:39] LABS: Hematocrit (blood only) 34.4 % (37.0-47.0); Hemoglobin 11.7 g/dl (12.0-16.0); Mean Corpuscular Hemoglobin 30.5 pg (25.0-34.0); Mean Corpuscular Volume 89.8 fL (80.0-100.0); Mean Platelet Volume 9.7 fL (9.4-12.4); Platelet Count 146 K/uL (130-400); RDW Coefficient of Variation 12.9 % (11.5-14.5); RDW Standard Deviation 41.7 fL (36.4-46.3); Red Blood Count 3.83 M/uL (4.20-5.40); White Blood Count 6.48 K/ul (4.8-10.8)
[2022-11-30 06:59] LABS: BUN Creatinine Ratio 15.3 (10-20); Calcium 9.3 mg/dl (8.6-10.3); Chol HDL Ratio 2.3 (0-5); Creatinine Clr Calc Pharmacy 29.1 ml/min; Est GFR (African American) 44.5 ml/min; Est GFR (Non-African American) 38.4 ml/min; Magnesium 1.9 mg/dl (1.7-2.4); Potassium 3.5 mmol/L (3.5-5.1)
[2022-11-30] MEDS: LORATADINE 10 MG TAB PO SCH (08:10)
[2022-11-30] MEDS: lisinopril 2.5 MG TAB PO SCH (08:10)
[2022-11-30] MEDS ORDERED: ASPIRIN 81 MG CHEW PO SCH (09:00)
[2022-11-30] MEDS ORDERED: NSS + 20MEQ KCL 20 MEQ/1,000 ML BAG IV ONE (09:06)
--- NOTE | 2022-11-30 09:07 | Communication Note ---
Date of Service: November 30, 2022 GI aware of consult for 82 y/o male for possible biopsy of suspected gallbladder malignancy. Given concern for cancer, EUS-guided biopsy would be contraindicated due to risk of seeding. In essence, this is a purely surgical issue, please consult the surgical service. Therefore there is no need for GI consult. I notified the pt's hospitalist. Thank you
[2022-11-30] MEDS ORDERED: bisacodyL 10 MG SUPP PR STA (10:35)
[2022-11-30] MEDS ORDERED: traMADol HCL 50 MG TABLET PO PRN (10:51)
--- NOTE | 2022-11-30 11:56 | Surgery Progress Note ---
Date of Service November 30, 2022 Assessment & Plan (1) Atypical chest pain: (2) Abnormal finding on imaging: Plan: The patient is afebrile, continues without leukocytosis, HD stable. MRI of the abdomen was completed yesterday and reviewed by the radiologist. It does reveal a complex cystic structure that seems to be associated with the gallbladder and/or liver. Unfortunately the findings are suspicious for a malignancy. I have recommended the patient be referred to a hepatobiliary surgeon for further work up/evaluation and management. If there is not a hepatobiliary surgeon here in [facility], the patient has requested she be referred to someone in [place]. The patient may be started on a low fat diet Recommend a suppository, consider a stool softener. She may be discharged from a surgical standpoint if she tolerates her diet. Continued gentle bowel regimen after discharge. Admission and Anticipated Discharge Date Admission Date: November 28, 2022 Subjective The patient was seen and examined this am. She denies abdominal pain. States that she did have a brief episode of lower abdominal discomfort that resolved with passing flatus. She has not had a bowel movement. She denies N/V or return of the previous episode of epigastric and b/l back pain that brought her in. Physical Exam Constitutional: cooperative; no acute distress, not ill appearing and no altered mental status Respiratory: normal respiratory effort; no respiratory distress, no labored breathing and does not use accessory muscles Gastrointestinal (Abdomen): Hypoactive bowel sounds. Abdomen is very soft without gaurding or regidity Results & Data Vital Signs (Past 12 Hours) Vital Signs Temp Pulse Pulse Pulse Resp BP Pulse Ox 11/30/22 11:18 36.7 C 82 14 144/83 H 96 11/30/22 07:43 71 11/30/22 07:10 36.9 C 84 14 151/74 H 92 11/30/22 03:00 36.8 C 96 H 16 123/68 93 O2 Del Method 11/30/22 11:18 Room Air 11/30/22 07:43 11/30/22 07:10 Room Air 11/30/22 03:00 Room Air PG Care Time/CCT Total # of Minutes Spent Total Time Spent with Patient: Total time spent is greater than 50% in coordination of care (as documented) at patient's floor/unit and/or counseling patient: Coding Level of Care Code 41389 SUB INP/OBS CARE 1/25MIN Diagnoses Atypical chest pain R07.89 Abnormal finding on imaging R93.89
[2022-11-30] MEDS ORDERED: DOCUSATE SODIUM 100 MG CAP PO PRN (13:17)
[2022-11-30] MEDS ORDERED: POLYETHYLENE (MIRALAX) 17 GM PACK PO PRN (13:17)
--- NOTE | 2022-11-30 13:25 | Hospitalist Progress Note ---
Date of Service November 30, 2022 Assessment & Plan (1) Atypical chest pain: Plan: Atypical Chest Pain Likely referred pain from hepatobiliary pathology Had Stress X2 previously as per family Troponin X 2: Negative EKG showed age undetermined septal infarct --CTA:No evidence for an aortic dissection. No evidence for a pulmonary embolus. No focal lung consolidations to suggest a pneumonia. Mild cardiomegaly. -Lipid Panel reviewed Consider echo if needed Resume aspirin Cholecystic/hepatic lesion Concern for exophytic gallbladder malignancy --MRI Abd:Complex extra cholecystic/hepatic lesion is seen containing layering material and a possibly enhancing lesion. Findings are nonspecific, however this may represent a exophytic gallbladder malignancy, a complex hepatic cyst or hematoma is considered less likely. Incidental note is made of renal and hepatic cysts. --Gall Bladder USD:At the expected location of the gallbladder there is a large complex cystic area containing hyperechoic material. This corresponds to the CT abnormality. This is difficult to characterize but could represent hemorrhage within a hepatic cyst rather than the gallbladder. There is an adjacent cystic focus which could represent the normal gallbladder. No associated color flow within the hyperechoic areas. Therefore, a gallbladder mass is considered less likely but not entirely excluded. Further characterization with a dedicated contrast-enhanced abdominal CT or abdominal MRI is recommended for further evaluation. --LFTs wnl -- Appreciate Surgery Input -- Given concern for cancer, endoscopic ultrasound-guided biopsy is contraindicated due to risk for seeding. Appreciate GI recommendations. -- Continue bowel regimen for constipation Tolerating diet Needs to follow-up with hepatobiliary surgeon and tertiary care facility for further management Normocytic anemia Likely multifactorial:? Malignancy, iron deficiency Start on iron supplements as able Monitor CBC Hypokalemia Replete electrolytes as needed Other chronic conditions: PSVT PVD Prediabetes HbA1c of 5.3 last July 2022 Continue home medications Hypertension Continue lisinopril Adjust meds as needed Monitor BP CKD III Monitor renal function Avoid nephrotoxic agents as able DVT Px: SCDs Re: Possible hepatobiliary bleed Code Status Full code Disposition Home Admission and Anticipated Discharge Date Admission Date: November 28, 2022 Subjective Patient is seen and examined at bedside Reported constipation this morning but later had a small bowel movement with rectal suppository Denies any significant abdominal pain Also denies any chest pain, dyspnea, dizziness, nausea, vomiting, abdominal pain Discussed with patient's family at bedside Plan to be discharged home today Review of Systems Review of Systems: All systems reviewed & are unremarkable except as noted in Subjective Physical Exam Physical Exam: Physical Exam: Vitals signs as noted above General Appearance:Thin, frail, elderly, no apparent distress Head: normocephalic, Atraumatic Eyes: normal inspection, EOMI Neck: supple, Trachea midline Respiratory/Chest: Normal breath sounds, CTA, No accessory muscle use Cardiovascular: S1, S2, No murmur Abdomen/GI:Soft, RUQ tender, Bowel sounds present Extremities/Musculoskeletal:normal inspection, no edema Neurologic/Psych:AAOX3, grossly no focal neurological deficits Skin: normal color, warm Results & Data Results & Data Vital Signs (Past 12 Hours) Vital Signs Temp Pulse Pulse Pulse Resp BP Pulse Ox 11/30/22 11:18 36.7 C 82 14 144/83 H 96 11/30/22 07:43 71 11/30/22 07:10 36.9 C 84 14 151/74 H 92 11/30/22 03:00 36.8 C 96 H 16 123/68 93 O2 Del Method 11/30/22 11:18 Room Air 11/30/22 07:43 11/30/22 07:10 Room Air 11/30/22 03:00 Room Air Laboratory Results Short CBC 11/30/22 Range/Units 06:20 WBC 6.48 (4.8-10.8) K/ul Hgb 11.7 L (12.0-16.0) g/dl Hct 34.4 L (37.0-47.0) % Plt Count 146 (130-400) K/uL BMP 11/30/22 06:20 Sodium 140 Potassium 3.5 Chloride 109 H Carbon Dioxide 25 BUN 20 Creatinine 1.31 H Glucose 88 Calcium 9.3
--- NOTE | 2022-11-30 13:31 | Discharge Summary ---
Date of Service November 30, 2022 Admission HPI Per Admitting Provider History obtained from patient, family, and records. Medical history significant for PSVT, PVD, hypertension, hyperlipidemia, prediabetes, CRI (baseline creatinine 1.4) Last night, patient noted epigastric discomfort after consuming chicken Parmesan at a local restaurant for her birthday dinner. Gassy feeling which persisted throughout the day today. Pain will go to her chest and to her back and shoulders. Subsequent emesis. No fever, no chills. Denies black/bloody stools/hematuria. Patient called daughter who told her to call EMS. Symptoms improved with aspirin and nitroglycerin administration. Patient currently comfortable. 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 Admission Exam Per Admitting Provider GENERAL: Comfortable, frail, no respiratory distress SKIN: Pallor, warm HEENT: Pale palpebral conjunctivae, no ptosis, dry buccal mucosa NECK : Supple, no tenderness CHEST : CTA, no tenderness HEART : RRR, no obvious murmurs ABDOMEN: Some distention, epigastric tenderness EXTREMITIES : No LE swelling/tenderness, no other conspicuous deformities noted NEUROLOGIC : Coherent, no facial asymmetry, no other gross focality Principal Diagnosis Gallbladder/liver lesion Atypical chest pain Constipation Discharge Data Allergies Allergy/AdvReac Type Severity Reaction Status Date / Time oxycodone Allergy Nausea Verified 11/28/22 13:51 Consultations 11/28/22 19:23 ED Decision to Admit Stat 11/28/22 21:11 Consult General Surgery Routine Procedures Performed Laboratory Results WBC 6.48 K/ul (4.8-10.8) 11/30/22 06:20 RBC 3.83 M/uL (4.20-5.40) L 11/30/22 06:20 Hgb 11.7 g/dl (12.0-16.0) L 11/30/22 06:20 Hct 34.4 % (37.0-47.0) L 11/30/22 06:20 MCV 89.8 fL (80.0-100.0) 11/30/22 06:20 MCH 30.5 pg (25.0-34.0) 11/30/22 06:20 MCHC 34.0 g/dL (32.0-36.0) 11/30/22 06:20 RDW Std Deviation 41.7 fL (36.4-46.3) 11/30/22 06:20 RDW Coeff of Afia 12.9 % (11.5-14.5) 11/30/22 06:20 Plt Count 146 K/uL (130-400) 11/30/22 06:20 MPV 9.7 fL (9.4-12.4) 11/30/22 06:20 Immature Gran % (Auto) 0.2 % 11/29/22 07:02 Neut % (Auto) 61.2 % 11/29/22 07:02 Lymph % (Auto) 27.0 % 11/29/22 07:02 [place] % (Auto) 9.1 % 11/29/22 07:02 Eos % (Auto) 1.7 % 11/29/22 07:02 Baso % (Auto) 0.8 % 11/29/22 07:02 Reticulocyte % (Auto) 1.5 % (0.5-2.0) 11/28/22 20:12 Neut # (Auto) 3.62 K/uL (1.40-6.50) 11/29/22 07:02 Lymph # (Auto) 1.60 K/uL (1.2-3.4) 11/29/22 07:02 [place] # (Auto) 0.54 K/uL (0.11-0.59) 11/29/22 07:02 Eos # (Auto) 0.10 K/uL (0-0.50) 11/29/22 07:02 Baso # (Auto) 0.05 K/uL (0-0.2) 11/29/22 07:02 Reticulocyte # 0.05 10^6/uL (0.02-0.10) 11/28/22 20:12 Immature Gran # (Auto) 0.01 K/uL (0.01-0.20) 11/29/22 07:02 APTT 26.5 Seconds (21.0-31.0) 11/28/22 19:46 PTT Ratio 0.9 11/28/22 19:46 Sodium 140 mmol/L (136-145) 11/30/22 06:20 Potassium 3.5 mmol/L (3.5-5.1) 11/30/22 06:20 Chloride 109 mmol/L (98-107) H 11/30/22 06:20 Carbon Dioxide 25 mmol/L (21-32) 11/30/22 06:20 Anion Gap 6 (3-11) 11/30/22 06:20 BUN 20 mg/dl (6-23) 11/30/22 06:20 Creatinine 1.31 mg/dl (0.6-1.2) H 11/30/22 06:20 Est Cr Clr Drug Dosing 29.1 ml/min 11/30/22 06:20 Est GFR ( Amer) 44.5 ml/min 11/30/22 06:20 Est GFR (Non-Af Amer) 38.4 ml/min 11/30/22 06:20 BUN/Creatinine Ratio 15.3 (10-20) 11/30/22 06:20 Glucose 88 mg/dl (70-99(Fasting)) 11/30/22 06:20 Calcium 9.3 mg/dl (8.6-10.3) 11/30/22 06:20 Magnesium 1.9 mg/dl (1.7-2.4) 11/30/22 06:20 Iron 24 mcg/dl (35-150) L 11/28/22 20:12 Transferrin 170 mg/dl (200-360) L 11/28/22 20:12 Ferritin 284.8 ng/ml (8-388) 11/28/22 20:12 Total Bilirubin 0.9 mg/dl (0.2-1.0) 11/29/22 07:02 AST 24 U/L (13-39) 11/29/22 07:02 ALT 21 U/L (7-52) 11/29/22 07:02 Alkaline Phosphatase 63 U/L (34-104) 11/29/22 07:02 Troponin I High Sens 6.4 pg/ml (0-14) 11/28/22 20:12 Total Protein 6.6 gm/dl (6.0-8.3) 11/29/22 07:02 Albumin 3.9 gm/dl (3.4-5.0) 11/29/22 07:02 Globulin 2.7 gm/dl (2.5-4.0) 11/29/22 07:02 Albumin/Globulin Ratio 1.4 (0.9-2) 11/29/22 07:02 Triglycerides 71 mg/dl (0-150) 11/30/22 06:20 Cholesterol 124 mg/dl (0-200) 11/30/22 06:20 LDL Cholesterol, Calc 56 mg/dl 11/30/22 06:20 VLDL Cholesterol, Calc 14 mg/dl (0-30) 11/30/22 06:20 HDL Cholesterol 54 mg/dl 11/30/22 06:20 Cholesterol/HDL Ratio 2.3 (0-5) 11/30/22 06:20 Lipase 24 U/L (11-82) 11/28/22 13:40 Vitamin B12 529 pg/ml (180-914) 11/28/22 20:12 Folate > 22.30 ng/ml (>5.38) 11/28/22 20:12 TSH 0.788 uIu/ml (0.300-4.500) 11/28/22 14:08 SARS-CoV-2, RNA, NAAT NEGATIVE (NEGATIVE) 11/28/22 19:38 Blood Type O Positive 11/28/22 14:14 Antibody Screen NEGATIVE 11/28/22 14:14 Impressions Chest X-Ray 11/28/22 13:38 XR chest 1V not portable HISTORY: Chest pain, nonspecific COMPARISON: None. FINDINGS: No pneumothorax or no pleural effusions. The cardiac silhouette is mildly enlarged. No focal lung consolidations to suggest pneumonia. No evidence for pulmonary edema. No acute fractures identified. IMPRESSION: Mild cardiomegaly. Otherwise, no acute process within the chest. ACT 112: Negative or not required by law. Electronically signed by: Goran Del Valle M.D. 11/28/2022 2:28 PM Chest CTA 11/28/22 14:32 CHEST CTA for AORTIC DISSECTION CT DOSE: 587.26 mGy.cm HISTORY: Atypical chest pain. Hypertension. TECHNIQUE: Multiaxial CT images of the chest were performed both before and after the intravenous administration of contrast to evaluate the aorta. 3D/MIP images were also obtained. Sagittal and coronal reformations were also reviewed. A dose lowering technique was utilized adhering to the principles of ALARA. COMPARISON STUDY: None. FINDINGS: Noncontrast imaging through the chest shows no evidence for an intramural hematoma within the thoracic aorta. There is normal caliber thoracic aorta with no evidence for a dissection. No filling defects within the pulmonary arteries to suggest a pulmonary embolus. The heart is mildly enlarged. No pleural or pericardial effusions. There are calcified right hilar lymph nodes. No mediastinal or hilar lymphadenopathy. Normal caliber esophagus. Limited views of the upper abdomen demonstrate a normal spleen and adrenal glands. There is a partially visualized abnormality within the right upper quadrant which appears to be within the gallbladder. The gallbladder appears distended and there is abnormal density within the gallbladder which could represent sludge or a mass. This is not well visualized on this study. Additional hypodensities within the liver favor cysts. No acute fractures identified. No pneumothorax. The central airways are patent. Bibasilar linear densities consistent with subsegmental atelectasis. Otherwise, no focal lung consolidations to suggest a pneumonia. No evidence for pulmonary edema. IMPRESSION: 1. No evidence for an aortic dissection. 2. No evidence for a pulmonary embolus. 3. No focal lung consolidations to suggest a pneumonia. 4. Mild cardiomegaly. 5. Abnormality within the right upper quadrant which appears to represent the gallbladder. This could represent sludge within the distended gallbladder or gallbladder mass. This is only partially imaged on this study. Follow-up right or quadrant ultrasound or contrast-enhanced abdomen CT recommended for further evaluation. ACT 112: Negative or not required by law. Electronically signed by: Goran Del Valle M.D. 11/28/2022 4:34 PM Gallbladder Ultrasound 11/28/22 16:50 ABDOMINAL ULTRASOUND, RIGHT UPPER QUADRANT HISTORY: back pain, abd chest ct. COMPARISON: Chest CTA 11/28/2022. FINDINGS: Pancreas: The pancreas demonstrates a normal echotexture. Liver: Multiple hepatic cysts with the dominant cyst in the right hepatic lobe measuring 6.9 cm. Gallbladder: At the expected location of the gallbladder there is a large complex cystic area containing hyperechoic material. This corresponds to the CT abnormality. This is difficult to characterize but could represent hemorrhage within a hepatic cyst rather than the gallbladder. There is an adjacent cystic focus which could represent the normal gallbladder. No associated color flow within the hyperechoic areas. Therefore, a gallbladder mass is considered less likely but not entirely excluded. CBD: 6 mm. Right kidney: A 1.7 cm upper pole cyst. Trace perinephric fluid is noted. No hydronephrosis. IMPRESSION: At the expected location of the gallbladder there is a large complex cystic area containing hyperechoic material. This corresponds to the CT abnormality. This is difficult to characterize but could represent hemorrhage within a hepatic cyst rather than the gallbladder. There is an adjacent cystic focus which could represent the normal gallbladder. No associated color flow within the hyperechoic areas. Therefore, a gallbladder mass is considered less likely but not entirely excluded. Further characterization with a dedicated contrast- enhanced abdominal CT or abdominal MRI is recommended for further evaluation. ACT 112: Negative or not required by law. Electronically signed by: Goran Del Valle M.D. 11/28/2022 7:57 PM Abdomen MRI 11/29/22 00:00 MR abdomen wo/w con CLINICAL HISTORY: abn ct, epig pain TECHNIQUE: Multiplanar multisequence images were obtained of the abdomen with and without the administration of contrast. COMPARISON: Comparison is made to ultrasound of the gallbladder 11/28/2022 FINDINGS: Lower chest: No acute abnormality Liver: A cluster of hepatic cysts is seen. Gallbladder and biliary tree: There is a cystic lesion in the gallbladder which contains irregular with layering sludge/stones, a thickened wall, and a possibly enhancing nodular density. A normal-appearing gallbladder is noted inferior to this lesion. No intra- or extrahepatic biliary ductal dilation. Pancreas: Unremarkable, no focal lesions. Spleen: Unremarkable. Adrenals: Unremarkable. Kidneys and ureters: Bilateral renal cysts are seen. Bowel: Unremarkable. Lymph nodes Retroperitoneal: Unremarkable. Mesenteric: Unremarkable. Peritoneum: Normal Vessels: Unremarkable. Abdominal wall: Unremarkable. Bones: Unremarkable. IMPRESSION: 1. Complex extra cholecystic/hepatic lesion is seen containing layering material and a possibly enhancing lesion. Findings are nonspecific, however this may represent a exophytic gallbladder malignancy, a complex hepatic cyst or hematoma is considered less likely. 2. Incidental note is made of renal and hepatic cysts. ACT 112: Positive. There are findings on this exam that require communication between the performing entity and the patient following Patient Test Result Information Act ([place] Act 112) guidelines. Electronically signed by: Nathanael Silva M.D. 11/29/2022 3:29 PM Ordered Studies 11/28/22 14:32 CT angio chest dissec wo/w con Stat 11/28/22 16:50 US gallbladder Stat 11/29/22 00:00 MR abdomen wo/w con Stat Hospital Course (1) Atypical chest pain: Atypical Chest Pain Likely referred pain from hepatobiliary pathology Had Stress X2 previously as per family Troponin X 2: Negative EKG showed age undetermined septal infarct --CTA:No evidence for an aortic dissection. No evidence for a pulmonary embolus. No focal lung consolidations to suggest a pneumonia. Mild cardiomegaly. -Lipid Panel reviewed Consider echo if needed Resume aspirin Cholecystic/hepatic lesion Concern for exophytic gallbladder malignancy --MRI Abd:Complex extra cholecystic/hepatic lesion is seen containing layering material and a possibly enhancing lesion. Findings are nonspecific, however this may represent a exophytic gallbladder malignancy, a complex hepatic cyst or hematoma is considered less likely. Incidental note is made of renal and hepatic cysts. --Gall Bladder USD:At the expected location of the gallbladder there is a large complex cystic area containing hyperechoic material. This corresponds to the CT abnormality. This is difficult to characterize but could represent hemorrhage within a hepatic cyst rather than the gallbladder. There is an adjacent cystic focus which could represent the normal gallbladder. No associated color flow within the hyperechoic areas. Therefore, a gallbladder mass is considered less likely but not entirely excluded. Further characterization with a dedicated contrast-enhanced abdominal CT or abdominal MRI is recommended for further evaluation. --LFTs wnl -- Appreciate Surgery Input -- Given concern for cancer, endoscopic ultrasound-guided biopsy is contraindicated due to risk for seeding. Appreciate GI recommendations. -- Continue bowel regimen for constipation Tolerating diet Needs to follow-up with hepatobiliary surgeon and tertiary care facility for further management Normocytic anemia Likely multifactorial:? Malignancy, iron deficiency Start on iron supplements as able Monitor CBC Hypokalemia Replete electrolytes as needed Other chronic conditions: PSVT PVD Prediabetes HbA1c of 5.3 last July 2022 Continue home medications Hypertension Continue lisinopril Adjust meds as needed Monitor BP CKD III Monitor renal function Avoid nephrotoxic agents as able DVT Px: SCDs Re: Possible hepatobiliary bleed Code Status Full code Disposition Home Total Time Total Time Spent Total Time Spent (In Minutes): 55 minutes Discharge Plan Discharge Items Patient Disposition: Home - Self-Care Reason For Visit: CP Discharge Diagnosis: Gallbladder/liver lesion Atypical chest pain Constipation Condition on Discharge: Fair Activity: Per Instructions section Sexual Activity: Wait until after follow-up appointment Non-emergency contact: Primary Care Provider and Specialist Call non-emergency contact if: you have any medication questions, your symptoms worsen, your pain is concerning for you and you have a fever Follow-up/Referrals: Rebeca Swift, [Primary Care Provider] - Diet: Low Fat Addtl Attending Provider Instructions: Follow-up with your primary care physician Dr. Swift in 1 week. Office will call you with appointment. --Follow-up with hepatobiliary surgeon at [facility] for further management as advised Seek immediate medical attention if your symptoms reoccur or worsen Please take all medications as instructed on discharge list below. Please call if you have any questions or problems. You can reach a [facility] hospitalist on duty at [facility] 24 hours a day by calling [phone] Pending Studies at Discharge: No Stand-Alone Forms: My [facility], Smoking Cessation Medications and DC Order Prescriptions: New ferrous sulfate 325 mg (65 mg iron) Tablet,Delayed Release (Dr/Ec) 325 mg PO QAM Qty: 30 0RF tramadol 50 mg Tablet 50 mg PO Q8H PRN (Reason: pain) Qty: 12 0RF docusate sodium 100 mg Capsule 100 mg PO BID PRN (Reason: constipation) Qty: 60 0RF polyethylene glycol 3350 [Miralax] 17 gram Powder In Packet 17 g PO DAILY PRN (Reason: constipation) Qty: 30 0RF Continued lisinopril 20 mg tablet 20 mg PO DAILY potassium chloride 20 mEq tablet,ER particles/crystals 20 meq PO BID aspirin 81 mg Tablet,Chewable 81 mg PO DAILY loratadine 10 mg Capsule 10 mg PO DAILY Discharge Orders: Discharge Order (Routine); Ordered 11/30/22 Ordered By: Charles Strickland Admission Data Admit Date/Time: 11/28/22 21:10 Attending Provider: Charles Strickland Admit Provider: Paewl Burt Primary Care Provider: Rebeca Swift Other Providers: Pawel Burt ; Selma Bray
[2022-12-01] MEDS ORDERED: FERROUS SULFATE 325 MG TAB PO SCH (09:00)
== END 2022-11-30 14:39 | disposition home or self-care (01) ==
LOC: 2E 13:21 → ED 13:21 → 2E 22:47

== ENCOUNTER 2023-10-23 10:08 | Inpatient (IN) ==
--- NOTE | 2023-10-23 10:35 | Emergency Department Note ---
History of Present Illness General Chief complaint: Referred by Doctor Stated complaint: LOW POTASSIUM Time Seen by Provider: 10/23/23 10:24 Source: patient, family (Daughter who is at the bedside), RN notes reviewed and old records reviewed (I have reviewed office notes from her primary care provider from 10/22/23 and also her old labs from [facility]) Mode of arrival: ambulatory Limitations: no limitations History of Present Illness This patient is a 82-year-old female who comes in as she said her doctor sent her in because her potassium was low she saw a doctor on Wednesday had a done yesterday she was not feeling ill and she says she does not feel ill now. She is followed by [facility]. Denies any recent illness she has had some dizziness at times she does drink tonic water occasionally for cramps in her legs no chest pain shortness breath or palpitations no fever chills no headache no focal numbness or weakness. No diarrhea. No blood or melena stool she does have kidney disease she has been on potassium in the past but apparently it was elevated and they took her off of it several months ago Home Medications Medication Instructions Recorded Confirmed Type aspirin 81 mg chewable tablet 81 mg PO DAILY 11/28/22 10/23/23 History lisinopril 20 mg tablet 20 mg PO DAILY 11/28/22 10/23/23 History docusate sodium 100 mg capsule 100 mg PO BID PRN constipation #60 11/30/22 10/23/23 Rx caps ferrous sulfate 325 mg (65 mg 325 mg PO QAM #30 tabs 11/30/22 10/23/23 Rx iron) tablet,delayed release polyethylene glycol 3350 17 gram 17 g PO DAILY PRN constipation #30 11/30/22 10/23/23 Rx oral powder packet (Miralax) ea ascorbic acid (vitamin C) 500 mg 500 mg PO DAILY 10/23/23 10/23/23 History tablet (Vitamin C) carvedilol 3.125 mg tablet 3.125 mg PO BID 10/23/23 10/23/23 History cholecalciferol (vitamin D3) 50 50 mcg PO DAILY 10/23/23 10/23/23 History mcg (2,000 unit) tablet (Vitamin D3) coQ10 (ubiquinol) 200 mg capsule 200 mg PO DAILY 10/23/23 10/23/23 History loratadine 10 mg tablet 10 mg PO DAILY PRN allergies 10/23/23 10/23/23 History rosuvastatin 40 mg tablet 40 mg PO DAILY 10/23/23 10/23/23 History spironolactone 25 mg tablet 25 mg PO DAILY 10/23/23 10/23/23 History vitamin B complex 1 tab PO DAILY 10/23/23 10/23/23 History vitamin E 400 unit tablet 400 unit PO DAILY 10/23/23 10/23/23 History Allergies Allergy/AdvReac Type Severity Reaction Status Date / Time oxycodone Allergy Nausea Verified 11/28/22 13:51 Past Med/Surg History Problem List (Updated 10/23/23 @ 14:31 by Jeannette Vega PA-C) Hypertension Fatigue CAD (coronary artery disease) CKD (chronic kidney disease), stage III Left bundle branch block (LBBB) (Acute) Hypokalemia (Acute) Surgical History S/P appendectomy H/O: hysterectomy S/P cholecystectomy Family History Other Alzheimer disease Colorectal cancer Social History Smoking Status: Never smoker Second Hand Exposure: No; Do You Dip or Chew Tobacco: No; Tobacco Cessation Education Requested by Patient: No Hx Alcohol Use: No Hx Substance Use: No Preferred Language: Afghan Communication Ability: Effective Silk Screen Processor Required: No Beliefs That Will Affect Care: None Current Living Situation: Alone Current Living Situation Comment: alone, son on weekends Other Information That Helps Us Care for You: No Feels Safe at Home: Yes Safety Concerns: Feels Safe At This Time Assistive Devices: Glasses Review of Systems A total of 10 systems reviewed and were otherwise negative Physical Exam Vital Signs Vital Signs - 24 hr 10/23/23 10:28 10/23/23 10:53 10/23/23 12:22 Temperature 36.4 C L Temperature Source Temporal Artery Scan Pulse Rate 73 Pulse Rate [Apical] 69 87 Respiratory Rate 18 17 20 Respiratory Effort / Characteristics Non-Labored Spontaneous Non-Labored Respiratory Depth Normal Normal Blood Pressure 194/89 H Blood Pressure [Left Arm] 150/77 H 135/66 Blood Pressure Mean 124 Blood Pressure Mean [Left Arm] 101 89 Blood Pressure Position [Left Arm] Sitting Pulse Oximetry 98 94 98 Oxygen Delivery Method Room Air Room Air Room Air Sepsis Recent Fever Within 48 Hours No Sepsis New/Unexplained Change in Mental Status No Sepsis Action Taken by Nursing No Action Required General: Well developed well nourished [id number] older female in no acute distress, breathing comfortably on room air. Normal speech HEENT: Normal cephalic atraumatic. Pupils are equal round and reactive to light. Extraocular movements are intact. Oropharynx is pink with moist mucous membranes. No swelling of the mouth lips or tongue. Neck: Supple with a midline trachea. No meningeal signs or stiffness, no JVD or bruits. No Stridor. Chest: Clear to auscultation bilaterally. No wheezes or rhonchi. No increased work of breathing. Heart: Regular rate and rhythm without murmurs or gallops. Abdomen: Soft nontender, nondistended without rebound guarding or rigidity. Extremities: No cyanosis clubbing or edema. No calf tenderness or assymetry Spine/Back. Non tender to palpation. No CVA tenderness Skin: Good turgor without rashes. Neurologic exam: Cranial nerves two through 12 are intact. Motor and sensation are intact and symmetrical throughout. Course Administered Medications Heparin Sodium (Porcine) (Heparin Sod 5,000 Unit/0.5 Ml Vial) 5,000 units SQ Q8H [facility] Stop: 11/22/23 14:59 Last Admin: 10/23/23 15:13 Dose: Not Given Documented By: SHELLEY Discontinued Medications Potassium Chloride (K Arsenio / Wtr) 10 meq in 100 mls @ 100 mls/hr IV Q1H [facility] Stop: 10/23/23 13:59 Last Admin: 10/23/23 14:13 Dose: 100 mls/hr Documented By: Infusion: 10/23/23 14:13 Dose: Infused Documented By: Admin: 10/23/23 11:51 Dose: 100 mls/hr Documented By: MICHAEL Potassium Chloride (Potassium Chloride 20 Meq/15 Ml Udc) 60 meq PO NOW [facility] Stop: 10/23/23 11:47 Last Admin: 10/23/23 11:50 Dose: 60 meq Documented By: MICHAEL Medical Decision Making Differential Diagnosis Hypokalemia, electrolyte or metabolic abnormality, renal disease, infection Medical Records Attestation: I reviewed the patient's medical records. Home Medications Current Medication List: was personally reviewed by me Laboratory Data Attestation: I reviewed the patient's lab results. 10/23/23 10:35 10/23/23 10:35 Lab Results 10/23/23 10/23/23 10/23/23 Range/Units 10:35 10:35 10:41 WBC 6.34 (4.8-10.8) K/ul RBC 4.13 L (4.20-5.40) M/uL Hgb 12.9 (12.0-16.0) g/dl POC Hgb 12.2 (12.0-16.0) g/dl Hct 37.6 (37.0-47.0) % POC Hct 36 L (37-47) % MCV 91.0 (80.0-100.0) fL MCH 31.2 (25.0-34.0) pg MCHC 34.3 (32.0-36.0) g/dL RDW Std Deviation 43.8 (36.4-46.3) fL RDW Coeff of Afia 13.2 (11.5-14.5) % Plt Count 150 (130-400) K/uL MPV 9.5 (9.4-12.4) fL Immature Gran % (Auto) 0.2 % Neut % (Auto) 52.3 % Lymph % (Auto) 33.8 % Wallace % (Auto) 10.4 % Eos % (Auto) 2.5 % Baso % (Auto) 0.8 % Neut # (Auto) 3.32 (1.40-6.50) K/uL Lymph # (Auto) 2.14 (1.20-3.40) K/uL Wallace # (Auto) 0.66 H (0.11-0.59) K/uL Eos # (Auto) 0.16 (0.00-0.50) K/uL Baso # (Auto) 0.05 (0.00-0.20) K/uL Immature Gran # (Auto) 0.01 (0.01-0.20) K/uL POC Sodium 143 (135-144) mmol/L Sodium 144 (136-145) mmol/L POC Potassium 2.2 L* (3.3-5.0) mmol/L Potassium 2.3 L* (3.5-5.1) mmol/L POC Chloride 99 L (101-112) mmol/L Chloride 102 (98-107) mmol/L Carbon Dioxide 34 H (21-32) mmol/L POC Total CO2 34 H (24-31) mmol/L Anion Gap 8 (3-11) POC Anion Gap 13.0 L (16-25) mmol/L POC BUN 10 (7-18) mg/dl BUN 12 (6-23) mg/dl Creatinine 1.43 H (0.6-1.2) mg/dl POC Creatinine 1.6 H (0.6-1.3) mg/dl Est Cr Clr Drug Dosing 27.7 ml/min Est GFR ( Amer) 40.0 ml/min Est GFR (Non-Af Amer) 34.5 ml/min BUN/Creatinine Ratio 8.4 L (10-20) Glucose 120 H (70-99(Fasting)) mg/dl POC Glucose (other) 120 H (70-99) mg/dl Calcium 9.8 (8.6-10.3) mg/dl POC Ioniz Calcium Dave 1.15 (1.12-1.32) mmol/l Magnesium 2.0 (1.7-2.4) mg/dl Total Bilirubin 1.4 H (0.2-1.0) mg/dl AST 19 (13-39) U/L ALT 11 (7-52) U/L Alkaline Phosphatase 58 (34-104) U/L Troponin I High Sens 24.3 H (0-14) pg/ml Total Protein 7.0 (6.0-8.3) gm/dl Albumin 4.1 (3.4-5.0) gm/dl Globulin 2.9 (2.5-4.0) gm/dl Albumin/Globulin Ratio 1.4 (0.9-2) TSH 1.960 Cancelled (0.300-4.500) uIu/ml Imaging Data Attestation: I personally reviewed and interpreted this imaging study as follows: My Impression: Chest x-rayno acute infiltrate, failure, pneumothorax seen. Cardiomegaly. Radiologist's Impression: Chest X-Ray 10/23/23 10:26 SINGLE VIEW CHEST CLINICAL HISTORY: Atypical chest pain. FINDINGS: An AP, portable, upright chest radiograph is compared to chest x-ray and chest CT dated 11/28/2022. The heart is enlarged noting atherosclerotic calcification of the thoracic aorta. The pulmonary vasculature is noncongested. There are calcified right hilar nodes. Chronic interstitial thickening is similar to previous. There is mild bibasilar scarring/atelectasis. The lungs and pleural spaces are otherwise clear. No pneumothorax is seen. The skeletal structures are osteopenic. The bony thorax is grossly intact. IMPRESSION: Cardiomegaly with no active disease in the chest. ACT 112: Negative or not required by law. Electronically signed by: Dylon Tirado M.D. 10/23/2023 11:25 AM ECG Data Attestation: I personally reviewed and interpreted this ECG as follows: Indication: + toxicologic Rate (beats per minute): 74 ECG Intervals/blocks: + Left bundle branch block, + Normal QT and + Normal GA ECG [place]: + Left axis deviation ECG ST segments: + Normal ST segments ECG Findings: no PACs or no PVCs Comparison ECG Date: from (11/28/2022) Change: the following changes noted (Left bundle branch block is new) MDM Narrative This patient comes in as described above. She was placed on a awake overnight monitor in room B10. She was sent here for low potassium. She is asymptomatic. IV access was established and we put her on a awake overnight monitor EKG was obtained and multiple labs were obtained I did review the notes from [facility]. Her EKG does shows left bundle branch block which appears to be new compared to old. I did add a troponin and her troponin is mildly elevated at 24 however she has no chest pain. Her magnesium was normal and the rest of her electrolytes look good with exception of the potassium being 2.3 which is in line with where it was checked yesterday and also i-STAT confirm this prior to the lab at 2.2. She will need potassium repletion I did give her 60 mill equivalents p.o. and ordered K riders to get started in the ED at 10 mill equivalents per hour x 2 .she will likely need more beyond that and will need to be admitted/observed. She is resting comfortably and asymptomatic at present. I have discussed the case with the hospitalist, Dr. Hawkins, and she will admit/observe the patient for these measures. Continuous cardiac monitoring: Orders placed in EMR for continuous awake overnight monitor call upon my evaluation patient noted to be in normal sinus rhythm with a rate of 75 with a left bundle branch block Impression & Plan Hypokalemia, Left bundle branch block (LBBB), Elevated troponin, Renal insufficiency Discharge Plan Visit Data Chief Complaint: Referred by Doctor Stated Complaint: LOW POTASSIUM ED Provider: Jaciel Ramírez Discharge Problem: Hypokalemia, Left bundle branch block (LBBB), Elevated troponin, Renal insufficiency Patient Disposition: Admitted As Inpatient Discharge Instructions Interventions: ED Discharge Assessment Last Done: 10/23/23 13:56
[2023-10-23 10:52] LABS: Basophils # (auto) 0.05 K/uL (0.00-0.20); Basophils % (auto) 0.8 %; Eosinophils # (auto) 0.16 K/uL (0.00-0.50); Eosinophils % (auto) 2.5 %; Hematocrit (blood only) 37.6 % (37.0-47.0); Hemoglobin 12.9 g/dl (12.0-16.0); Immature Granulocytes # (auto) 0.01 K/uL (0.01-0.20); Immature Granulocytes % (auto) 0.2 %; Lymphocytes # (auto) 2.14 K/uL (1.20-3.40); Lymphocytes % (auto) 33.8 %; Mean Corpuscular Hemoglobin 31.2 pg (25.0-34.0); Mean Corpuscular Hgb Conc 34.3 g/dL (32.0-36.0); Mean Platelet Volume 9.5 fL (9.4-12.4); Monocytes # (auto) 0.66 K/uL (0.11-0.59); Monocytes % (auto) 10.4 %; Neutrophils # (auto) 3.32 K/uL (1.40-6.50); Neutrophils % (auto) 52.3 %; Platelet Count 150 K/uL (130-400); RDW Coefficient of Variation 13.2 % (11.5-14.5); RDW Standard Deviation 43.8 fL (36.4-46.3); Red Blood Count 4.13 M/uL (4.20-5.40); White Blood Count 6.34 K/ul (4.8-10.8)
[2023-10-23 10:54] LABS: iSTAT Creatinine 1.6 mg/dl (0.6-1.3); iSTAT Hemoglobin 12.2 g/dl (12.0-16.0); iSTAT Ionized Calcium 1.15 mmol/l (1.12-1.32); iSTAT Potassium 2.2 mmol/L (3.3-5.0)
--- NOTE | 2023-10-23 11:28 | XRay Report ---
SINGLE VIEW CHEST CLINICAL HISTORY: Atypical chest pain. FINDINGS: An AP, portable, upright chest radiograph is compared to chest x-ray and chest CT dated 11/14. The heart is enlarged noting atherosclerotic calcification of the thoracic aorta. The pulmona ry vasculature is noncongested. There are calcified right hilar nodes. Chronic interstitial thickenin g is similar to previous. There is mild bibasilar scarring/atelectasis. The lungs and pleural spaces are otherwise clear. No pneumothorax is seen. The skeletal structures are osteopenic. The bony thorax is grossly intact. IMPRESSION: Cardiomegaly with no active disease in the chest. ACT 112: Negative or not required by law. Electronically signed by: Dylon Tirado M.D. 10/23/2023 11:25 AM
[2023-10-23 11:33] LABS: Albumin Globulin Ratio 1.4 (0.9-2); Albumin Level 4.1 gm/dl (3.4-5.0); BUN Creatinine Ratio 8.4 (10-20); Bilirubin,Total 1.4 mg/dl (0.2-1.0); Calcium 9.8 mg/dl (8.6-10.3); Creatinine Clr Calc Pharmacy 27.7 ml/min; Est GFR (Non-African American) 34.5 ml/min; Globulin 2.9 gm/dl (2.5-4.0); Potassium 2.3 mmol/L (3.5-5.1); Troponin I High Sensitivity 24.3 pg/ml (0-14)
[2023-10-23] MEDS: POTASSIUM CHLORIDE 20 MEQ/15 ML UDC PO STA (11:50)
[2023-10-23] MEDS: POTASSIUM CHLORIDE / WTR 10 MEQ/100 ML PLCT IV SCH ×2 (11:51→22:12)
--- NOTE | 2023-10-23 12:30 | History & Physical Report ---
Date of Service October 23, 2023 Assessment & Plan (1) Hypokalemia: Plan: This is an 82yo F with a PMH of SVT, HTN, CAD, CKD III, history of PFO, dyslipidemia and other medical problems listed below who was directed in from PCP for abnormal outpatient labwork. K of 2.3 on admission Was instructed by nephro last fall to discontinue potassium supplement. Lisinopril dose icreased to 20mg daily at that time and was started on spironolactone 25mg Given 60mg PO KCl in ED, 10meq K Riders x 2 Repeat BMP for this afternoon, likely to need add'l supplementation Urine studies pending Routine nephro consult (2) CKD (chronic kidney disease), stage III: Plan: Cr 1.43 (Cr 1.2-1.5 at baseline) Monitor with daily BMP (3) Hypertension: Plan: Continue carvedilol, spironolactone, lisinopril (4) Left bundle branch block (LBBB): Plan: Newly noted on EKG today, not on previous outpatint EKGs - no CP EKG with NSR, LAD, LBBB which appears new Will obtain 2D echo, routine cards consult Monitor on tele (5) CAD (coronary artery disease): Plan: 2D echo from 04/08 with preserved EF, no wall motion abnormalities or significant valvular disease Repeating echo as above Continue ASA, statin, carvedilol (6) Fatigue: Plan: Endorsing decreased energy lately TSH normal Vitamin D3, B12 and folate pending Continue iron and Vit D supplement DVT Ppx: SQ heparin Code status: FULL PCP: [facility] Dispo: admitted to PCU Patient seen in collaboration with Dr. Hawkins. Please see addendum. I spent a total of 75 minutes coordinating, documenting, and providing care for this patient excluding time spent in the performance of separately billed services. History of Present Illness Chief Complaint: abnormal labs Primary Care Provider: Rebeca Swift, DO This is an 82yo F with a PMH of SVT, HTN, CAD, CKD III, history of PFO, dyslipidemia and other medical problems listed below who was directed in from PCP for abnormal outpatient labwork. Patient was directed to primary care from nephrology due to large hematuria and bacteria noted on outpatient labs that appear to chronic. Denies any urinary symptoms. Followed up yesterday with PCP and had basic outpatient lab work, which revealed critically low K of 2.4. Dr. Bello called patient and directed her to ED for further evaluation. Patient states she has been feeling well and denies any lightheadedness, palpitations, chest pain, nausea or vomiting. Did stop taking potassium diuretic in March 2023 as directed by nephrology. Taking all other medications as prescribed. Has been taking spironolactone since March 2023. Denies any fever, chills, headache, shortness of breath, abdominal pain, dysuria, hematuria, diarrhea or constipation. Allergies Allergy/AdvReac Type Severity Reaction Status Date / Time oxycodone Allergy Nausea Verified 11/28/22 13:51 Home Medications Medication Instructions Recorded Confirmed Type aspirin 81 mg chewable tablet 81 mg PO DAILY 11/28/22 10/23/23 History lisinopril 20 mg tablet 20 mg PO DAILY 11/28/22 10/23/23 History docusate sodium 100 mg capsule 100 mg PO BID PRN constipation #60 11/30/22 10/23/23 Rx caps ferrous sulfate 325 mg (65 mg 325 mg PO QAM #30 tabs 11/30/22 10/23/23 Rx iron) tablet,delayed release polyethylene glycol 3350 17 gram 17 g PO DAILY PRN constipation #30 11/30/22 10/23/23 Rx oral powder packet (Miralax) ea ascorbic acid (vitamin C) 500 mg 500 mg PO DAILY 10/23/23 10/23/23 History tablet (Vitamin C) carvedilol 3.125 mg tablet 3.125 mg PO BID 10/23/23 10/23/23 History cholecalciferol (vitamin D3) 50 50 mcg PO DAILY 10/23/23 10/23/23 History mcg (2,000 unit) tablet (Vitamin D3) coQ10 (ubiquinol) 200 mg capsule 200 mg PO DAILY 10/23/23 10/23/23 History loratadine 10 mg tablet 10 mg PO DAILY PRN allergies 10/23/23 10/23/23 History rosuvastatin 40 mg tablet 40 mg PO DAILY 10/23/23 10/23/23 History spironolactone 25 mg tablet 25 mg PO DAILY 10/23/23 10/23/23 History vitamin B complex 1 tab PO DAILY 10/23/23 10/23/23 History vitamin E 400 unit tablet 400 unit PO DAILY 10/23/23 10/23/23 History Past Med/Surg History Problem List (Updated 10/23/23 @ 14:31 by Jeannette Vega PA-C) Hypertension Fatigue CAD (coronary artery disease) CKD (chronic kidney disease), stage III Left bundle branch block (LBBB) (Acute) Hypokalemia (Acute) Surgical History S/P appendectomy H/O: hysterectomy S/P cholecystectomy Family History Other Alzheimer disease Colorectal cancer Social History Smoking Status: Never smoker Second Hand Exposure: No; Do You Dip or Chew Tobacco: No; Tobacco Cessation Education Requested by Patient: No Hx Alcohol Use: No Hx Substance Use: No Preferred Language: Croatian Communication Ability: Effective Credit Clerk Required: No Beliefs That Will Affect Care: None Current Living Situation: Alone Current Living Situation Comment: alone, son on weekends Other Information That Helps Us Care for You: No Feels Safe at Home: Yes Safety Concerns: Feels Safe At This Time Assistive Devices: Glasses Review of Systems Review of Systems: At least ten systems reviewed and negative except as noted in the HPI. Physical Exam Physical Exam: Please see Dr. Hawkins' addendum for physical exam. Results & Data Results & Data Vital Signs (Past 12 Hours) Vital Signs Temp Pulse Pulse Resp BP BP Pulse Ox 10/23/23 12:22 87 20 135/66 98 10/23/23 10:53 69 17 150/77 H 94 10/23/23 10:28 36.4 C L 73 18 194/89 H 98 O2 Del Method 10/23/23 12:22 Room Air 10/23/23 10:53 Room Air 10/23/23 10:28 Room Air Laboratory Results Short CBC 10/23/23 Range/Units 10:35 WBC 6.34 (4.8-10.8) K/ul Hgb 12.9 (12.0-16.0) g/dl Hct 37.6 (37.0-47.0) % Plt Count 150 (130-400) K/uL BMP 10/23/23 10:35 Sodium 144 Potassium 2.3 L* Chloride 102 Carbon Dioxide 34 H BUN 12 Creatinine 1.43 H Glucose 120 H Calcium 9.8 Liver Function 10/23/23 Range/Units 10:35 Total Bilirubin 1.4 H (0.2-1.0) mg/dl AST 19 (13-39) U/L ALT 11 (7-52) U/L Alkaline Phosphatase 58 (34-104) U/L Albumin 4.1 (3.4-5.0) gm/dl Diagnostic Findings Chest X-Ray 10/23/23 10:26 SINGLE VIEW CHEST CLINICAL HISTORY: Atypical chest pain. FINDINGS: An AP, portable, upright chest radiograph is compared to chest x-ray and chest CT dated 11/28/2022. The heart is enlarged noting atherosclerotic calcification of the thoracic aorta. The pulmonary vasculature is noncongested. There are calcified right hilar nodes. Chronic interstitial thickening is similar to previous. There is mild bibasilar scarring/atelectasis. The lungs and pleural spaces are otherwise clear. No pneumothorax is seen. The skeletal structures are osteopenic. The bony thorax is grossly intact. IMPRESSION: Cardiomegaly with no active disease in the chest. ACT 112: Negative or not required by law. Electronically signed by: Dylon Tirado M.D. 10/23/2023 11:25 AM ECG Additional Comments: EKG reviewed EKG with NSR, LAD, LBBB which appears new Supervising Physician Co-Signing Physician Notes I have seen and discussed the case with the collaborating advanced practitioner. I agree with the above H&P. I have reviewed and confirmed the patients medical history, the findings on physical examination, and the patients diagnosis and treatment plan with Gary CORRAL and agree with the information documented. In short, Ms. Pretty is an 82 year old woman with SVT, HTN, CAD, CKD III, history of PFO, dyslipidemia who is admitted for abnormal OP labs, noted to be hypokalemic. Patient with history of hypokalemia on supplements--however recently discontinued PO supplements in 03/2023 given she was on lisinopril/spironolactone. GENERAL APPEARANCE: AxOx4, generally well-appearing female no acute distress. HEENT: NC, AT. MMM. EOMI, clear conjunctiva, oropharynx clear. NECK: Supple without lymphadenopathy. No stiffness or restricted ROM. HEART: Normal rate and regular rhythm, normal S1/S1, no m/r/g LUNGS: CTAB, moving air well. No crackles or wheezes are heard. ABDOMEN: Soft, nontender, nondistended with good bowel sounds heard. BACK: No CVAT, no obvious deformity. EXTREMITIES: Without cyanosis, clubbing or edema. NEUROLOGICAL: Grossly nonfocal. Alert and oriented, moving all 4 extremities. CN not formally tested but appear grossly intact. Observed to ambulate with normal gait. Skin: Warm and dry without any rash. #Hypokalemia -history of being on potassium supplements, noted to be removed given stable levels and on lisinopril/spironolactone--discontinued 03/2023 by nephrology -initially thought hypokalemia was 2/2 hctz Labs noted to have K of 2.2, normal mag 2.0, HCO3 34 -Aggressive IV and PO replacement -Bmp q6 hours -Continue lisinopril and hugo Urine studies to assess for renal losses Repeat mag in am Nephrology consult -historically follows nephrology, guidance on continued supplementation #New LBBB #Hx of SVT #abnormal EKG ECHO 2022 EF 55-59% March 24, 2023 Lexisc[facility] Interpretation Summary (as per Dr. Aguilar): Lexiscan nuclear stress test negative for ischemia or scar. Gated SPECT images reveals normal myocardial thickening and wall motion. The LV ejection fraction is calculated at >70%. -no active chest pain, no palpitations mild elevation in trop Aggressively replace lytes consult cards trend trop monitor on tele echo continue coreg #HTN continue spironolactone, lisinopril and Coreg #Progressive fatigue no infectious symptoms, potentially related to electrolyte abnormality -TSH WNL -Vit d, b12, folate ordered #HLD continue statin #PFO. Prior ECHO without right to left interatrial shunt Continue ASA 81 mg/day #CKDIII stable Followed by [facility] Nephrology rest of plan as above I spent a total of 35 minutes coordinating, documenting, and providing care for this patient excluding time spent in the performance of separately billed services. All of the aforementioned completed outside of collaborating with the assigned advanced practitioner for a full treatment plan. I have reviewed the advanced practitioner's documentation, and I agree with, and take responsibility for the plan of care
[2023-10-23 13:20] LABS: Thyroid Stimulating Hormone 1.96 uIu/ml (0.300-4.500)
[2023-10-23] MEDS ORDERED: ONDANSETRON INJ 2 MG/ML 2 ML VIAL IV PRN (13:56)
[2023-10-23] MEDS ORDERED: LORATADINE 10 MG TAB PO PRN (14:35)
[2023-10-23 14:55] LABS: Appearance Urine Clear (Clear); Bacteria Urine Automated None Seen (None Seen); Bilirubin Urine Negative (Negative); Blood Urine Trace (Negative); Cast Urine Automated 0-2 /lpf (0-2); Color Urine Yellow; Epithelial Cell Urine Auto 0-2 /hpf (0-2); Glucose Urine UA Negative (Negative); Ketones Urine Negative (Negative); Leukocyte Esterase Urine 1+ (Negative); Nitrite Urine Negative (Negative); Protein Urine 2+ (Negative); RBC Urine Automated 0-2 /hpf (0-2); Specific Gravity Urine 1.007 (1.000-1.030); Urobilinogen Urine Negative (Negative); pH Urine >= 9.0 (4.5-7.5)
[2023-10-23 15:12] LABS: Total Protein Urine Random 58.2 mg/dl (0-11.9); Urine Potassium 17.5 mmol/L
[2023-10-23] MEDS: HEPARIN SOD 5,000 UNIT/0.5 ML VIAL SQ SCH (15:13)
[2023-10-23 15:18] LABS: Creatinine Urine Random 19.9 mg/dl; Protein Creatinine Ratio Urine 2.9 (0-0.2)
--- NOTE | 2023-10-23 17:08 | Cardiology Consultation ---
Date of Consultation October 23, 2023 Assessment & Plan (1) Hypokalemia: (2) Fatigue: (3) New onset left bundle branch block (LBBB): (4) Elevated troponin: (5) Hypertension: Plan Marked hypokalemia, 2.3 mmol/L on presentation. Patient received 60 mEq's of oral potassium and two K-riders in the ER. Follow-up metabolic panel to be obtained, likely requiring additional oral potassium supplementation. Nephrology consultation pending. New left bundle branch block. Asymptomatic. No ACS. No symptoms/evidence of endocarditis or myocarditis. Suspect conduction system disease due to hypertension and aging process. Refer for resting echocardiography. Continue telemetry. If telemetry is benign as an inpatient recommend 14-day Zio monitor to be placed in [place]. Elevated Troponin. No symptoms to suggest an acute coronary syndrome. Suspect secondary to hypertension (BP 194/89 on presentation) in the setting of chronic kidney disease and marked hypokalemia. Check troponin serially. Refer for resting echocardiography. Hypertension. Continue carvedilol and lisinopril. Add amlodipine 5 mg/day. Spironolactone as per Nephrology. Dyslipidemia. Continue rosuvastatin 40 mg/day. PFO. Continue aspirin 81 mg/day I spent a total of 52 minutes on the date of service in preparation, delivery, and documentation of the care provided to this patient excluding any time spent in the performance of separately billed services. This visit was a split-shared visit with the substantive portion of the medical decision making performed by the supervising window dresser/billing provider. Supervising Physician Co-Signing Physician Notes I have reviewed the advanced practitioner's documentation on the date of service referenced in note, and I agree with, and take responsibility for the plan of care. 82-year-old female with known history of hypertension presents with abnormal renal function noted to have significant hypokalemia, hypertension elevated troponins and left bundle branch block No symptoms of angina present Continue to trend troponins Echocardiogram no wall motion abnormality Elevated troponins likely related to demand supply ischemia I spent a total of [20] minutes coordinating, documenting, and providing care for this patient excluding time spent in the performance of separately billed services or time spent by another provider. History of Present Illness Reason for Consultation: New left bundle branch block Requesting Physician: Gary/Shruthi Attending Physician: Dr. Misty Hawkins MD History of Present Illness Ms. Doris Pretty is a 82 year old female who was advised by Nephrology to schedule an evaluation with her PCP after urinalysis revealed hematuria and bacteria. She notes being unable to see Dr. Swift and was evaluated by Dr. Bello on 10/22/2023. Metabolic panle on 10/22/2023 returned with a potassium of 2.4 mmol/L for which she was referred to the ER for treatment and further evaluation. EKG in the ER revealed a new left bundle branch block. High sensitivity troponin was 24.3 pg/mL. Creatinine was 1.43. Potassium in the ER was 2.3. CXR showed no active disease in the chest. Spironolactone prescribed by Nephrology in February or March 2023. She is also prescribed Lisinopril 40 mg/day. No loop diuretic use. Chronically prescribed carvedilol, rosuvastatin, and aspirin and without recent change in medications. No chest pain or discomfort, new or worsening shortness of breath, palpitations, vomiting, diarrhea, excessive diaphoresis, dysuria, fevers, chills, night sweats, new or worsening myalgias or arthralgias, tick bites, rash, or abnormal bleeding. Problem List Hypertension Stage III CKD Proteinuria Dyslipidemia Mild carotid artery disease PFO Osteoarthrtiis Osteoporosis Family History: Mother and daughter with pacemakers, father with colon cancer. Social History: Never smoker. No smokeless tobacco. Rare alcohol. No illegal drug use. Retired. Enjoys sewing, crocheting, reading, puzzles on her ipad. Allergies Allergy/AdvReac Type Severity Reaction Status Date / Time oxycodone Allergy Nausea Verified 11/28/22 13:51 Home Medications Medication Instructions Recorded Confirmed Type aspirin 81 mg chewable tablet 81 mg PO DAILY 11/28/22 10/23/23 History lisinopril 20 mg tablet 20 mg PO DAILY 11/28/22 10/23/23 History docusate sodium 100 mg capsule 100 mg PO BID PRN constipation #60 11/30/22 10/23/23 Rx caps ferrous sulfate 325 mg (65 mg 325 mg PO QAM #30 tabs 11/30/22 10/23/23 Rx iron) tablet,delayed release polyethylene glycol 3350 17 gram 17 g PO DAILY PRN constipation #30 11/30/22 10/23/23 Rx oral powder packet (Miralax) ea ascorbic acid (vitamin C) 500 mg 500 mg PO DAILY 10/23/23 10/23/23 History tablet (Vitamin C) carvedilol 3.125 mg tablet 3.125 mg PO BID 10/23/23 10/23/23 History cholecalciferol (vitamin D3) 50 50 mcg PO DAILY 10/23/23 10/23/23 History mcg (2,000 unit) tablet (Vitamin D3) coQ10 (ubiquinol) 200 mg capsule 200 mg PO DAILY 10/23/23 10/23/23 History loratadine 10 mg tablet 10 mg PO DAILY PRN allergies 10/23/23 10/23/23 History rosuvastatin 40 mg tablet 40 mg PO DAILY 10/23/23 10/23/23 History spironolactone 25 mg tablet 25 mg PO DAILY 10/23/23 10/23/23 History vitamin B complex 1 tab PO DAILY 10/23/23 10/23/23 History vitamin E 400 unit tablet 400 unit PO DAILY 10/23/23 10/23/23 History Patient History Surgical History S/P appendectomy H/O: hysterectomy S/P cholecystectomy Family History Other Alzheimer disease Colorectal cancer Social History Smoking Status: Never smoker Second Hand Exposure: No; Do You Dip or Chew Tobacco: No; Tobacco Cessation Education Requested by Patient: No Hx Alcohol Use: No Hx Substance Use: No Preferred Language: Thai Communication Ability: Effective Therapeutic Sales Specialist Required: No Beliefs That Will Affect Care: None Current Living Situation: Alone Current Living Situation Comment: alone, son on weekends Other Information That Helps Us Care for You: No Feels Safe at Home: Yes Safety Concerns: Feels Safe At This Time Assistive Devices: Glasses Review of Systems Review of Systems: Complete Review of Systems is as stated above, negative, or noncontributory Physical Exam Physical Exam: Examined in ER, Room C08 General: A&Ox3. NAD. Skin: + Pallor HENT: Normocephalic. Atraumatic. Eyes: PER. Conjunctiva pink, sclera clear. Neck: Left carotid bruit. No JVD. Heart: RRR, 80 bpm. + Gallop. Soft systolic ejection murmur. No diastolic murmur. No rub. Lungs: Clear to auscultation. Abdomen: +BS. Soft. Nontender. No masses or organomegaly. Extremities: No clubbing, cyanosis, or peripheral edema. Neuro: No focal deficit. Results & Data Vital Signs (Past 12 Hours) Vital Signs Temp Pulse Pulse Resp BP BP Pulse Ox 10/23/23 15:16 73 10/23/23 14:09 78 20 177/79 H 98 10/23/23 14:07 10/23/23 14:07 78 20 177/74 H 98 10/23/23 13:24 78 10/23/23 12:22 87 20 135/66 98 10/23/23 10:53 69 17 150/77 H 94 10/23/23 10:28 36.4 C L 73 18 194/89 H 98 Pulse Ox O2 Del Method O2 Del Method 10/23/23 15:16 10/23/23 14:09 Room Air 10/23/23 14:07 98 Room Air 10/23/23 14:07 Room Air 10/23/23 13:24 10/23/23 12:22 Room Air 10/23/23 10:53 Room Air 10/23/23 10:28 Room Air Laboratory Results Cardiac Enzymes 10/23/23 Range/Units 10:35 AST 19 (13-39) U/L Troponin I High Sens 24.3 H (0-14) pg/ml CBC 10/23/23 Range/Units 10:35 WBC 6.34 (4.8-10.8) K/ul RBC 4.13 L (4.20-5.40) M/uL Hgb 12.9 (12.0-16.0) g/dl Hct 37.6 (37.0-47.0) % Plt Count 150 (130-400) K/uL Neut # (Auto) 3.32 (1.40-6.50) K/uL Lymph # (Auto) 2.14 (1.20-3.40) K/uL [place] # (Auto) 0.66 H (0.11-0.59) K/uL Eos # (Auto) 0.16 (0.00-0.50) K/uL Baso # (Auto) 0.05 (0.00-0.20) K/uL Comprehensive Metabolic Panel 10/23/23 Range/Units 10:35 Sodium 144 (136-145) mmol/L Potassium 2.3 L* (3.5-5.1) mmol/L Chloride 102 (98-107) mmol/L Carbon Dioxide 34 H (21-32) mmol/L BUN 12 (6-23) mg/dl Creatinine 1.43 H (0.6-1.2) mg/dl Glucose 120 H (70-99(Fasting)) mg/dl Calcium 9.8 (8.6-10.3) mg/dl AST 19 (13-39) U/L ALT 11 (7-52) U/L Alkaline Phosphatase 58 (34-104) U/L Total Protein 7.0 (6.0-8.3) gm/dl Albumin 4.1 (3.4-5.0) gm/dl Intake and Output 10/23/23 10/23/23 10/23/23 06:59 14:59 22:59 Intake Total 150 / 150 Balance 150 / 150 Intake: IV 100 / 100 Potassium Chloride / Wtr 10 meq 100 / 100 In 100 ml @ 100 mls/hr IV Q1H [facility] Rx#:[id number] Oral 50 / 50 Other: # Unmeasured Voids 2 Weight 56 kg Weight Measurement Method Chair Scale Patient Weight 10/24/23 06:59 Weight 56 kg Diagnostic Findings EKG on March 04, 2023 revealed normal sinus rhythm at 85 bpm with possible left atrial enlargement, left ventricular hypertrophy. March 18, 2023 TTE Interpretation Summary (as per Dr. Ferreira): The LV wall thickness is normal. The left ventricular wall motion is normal. The qualitative LV ejection fraction is 55-59% (normal). The left ventricular diastolic function is mildly abnormal (grade I). Mild tricuspid regurgitation is present. March 24, 2023 Lexiscan Interpretation Summary (as per Dr. Aguilar): Lexiscan nuclear stress test negative for ischemia or scar. Gated SPECT images reveals normal myocardial thickening and wall motion. The LV ejection fraction is calculated at >70%. EKG on 10/23/2023: Normal sinus rhythm at 74 bpm with left axis deviation, left bundle branch block. Telemetry: Sinus with left bundle branch block.
--- OUTSIDE RECORDS SUMMARY | 2023-10-23 17:33 | External Medical Summary | Summary of Care ---
Author Name Unknown Organization [facility] Address [address] [place] [address] Phone [phone] Care Team Providers Care Sales Service Rep Name Role Phone Rebeca Swift Primary Care Provider [phone] Reason for Visit * Reason Comments Outpatient Testing Encounter Details Date Type Department Care Team (Late st Contact Info) Description 10/04/2023 8:10 AM EDT Laboratory Laboratory [address] [place] [phone] [place] [address] [employer] Other*[id number]; Encounter for vitamin deficiency screening; Persistent proteinuria; Chronic kidney disease with symptom management only, stage 3 (moderate) ([facility]) Allergies Active Allergy Reactions Criticality Noted Date Comments Oxycodone Nausea/vomiting Medium 05/02/2014 documented as of this encounter (statuses as of 10/05/2023) Medications Medication Sig Dispensed Refills Start Date End Date Status ASPIRIN 81 MG PO TABS 1 TABLET DAILY 0 0 02/16/2008 Active CALCIUM CITRATE-VITAMIN D 315-200 MG-UNIT PO TABS Take 1 Tablet by mouth. 0 0 09/19/2008 Active VITAMIN C CR 1000 MG PO TBCR Take 500 mg by mouth every morning. 0 0 09/19/2008 Active COQ10 200 MG PO CAPSIndications:Dysli pidemia, goal LDL below 130 one tablet daily 30 3 05/16/2009 Active VITAMIN D3 2000 UNIT PO CAPSIndications:Vitam in D deficiency 1 CAPSULE DAILY 0 10/02/2009 Acti ve B COMPLEX PO TABS 1 tablet one day A ctive loratadine (CLARITIN) 10 MG Tablet Take 1 Tablet by mouth in the morning. As needed for allergies. 09/19/2014 Active vitamin e (AQUASOL E) 400 UNIT Capsule Take 1 Capsule by mouth in the morning. 09/06/2018 Active Glucosamine Sulfate 500 MG CAPS Take 1,000 mg by mouth in the morning and 1,000 mg before bedtime. Active Ferrous Sulfate 325 (65 Fe) MG Oral Tablet Delayed Release 1 Tablet. 11/30/2022 Active Rosuvastatin Calcium 40 MG Oral Tablet (Crestor)Indications: Dyslipidemia, goal LDL below 70 TAKE ONE TABLET BY MOUTH EVERY DAY 90 Tablet 3 02/08/2023 Active Lisinopril 20 MG Oral Tablet (Prinivil)Indications :Hypertensive kidney disease with stage 3b chronic kidney disease (HCC) Take 2 Tablets by mouth in the morning. 180 Tablet 3 03/18/2023 Active Spironolactone 25 MG Oral Tablet (Aldactone) TAKE 1 TABLET BY MOUTH EVERY MORNING 30 Tablet 5 08/10/2023 Active Carvedilol 3.125 MG Oral Tablet (Coreg)Indications:Hy pertensive kidney disease with stage 3 chronic kidney disease, unspecified whether stage 3a or 3b CKD (HCC),Hypertension, uncontrolled TAKE ONE TABLET BY MOUTH IN THE MORNING AND IN THE EVENING WITH MEALS 180 Tablet 3 08/30/2023 Active documented as of this encounter (statuses as of 10/05/2023) Active Problems Problem Noted Date Diagnosed Date Liver cyst 01/06/2023 Family history of kidney disease in brother 07/0 09/2021 Overview: GPA Primary osteoarthritis of both knees 11/18/2021 PFO (patent foramen ovale) 11/18/2021 Mild carotid artery disease 05/20/2021 SVT (supraventricular tachycardia) 05/20/2021 Persistent proteinuria 11/13/2020 Chronic kidney disease, stage 3b 09/24/2020 Overview: Per CKD protocol Hypertensive kidney disease with stage 3b chronic kidney disease 03/25/2020 Overview: Per CKD protocol Essential hypertension with goal blood pressure less than 140/90 05/27/2016 Senile osteoporosis 05/22/2014 Dyslipidemia, goal LDL below 70 05/16/2009 Allergic rhinitis due to pollen 09/19/2008 Osteoarthrosis involving multiple sites but not generalized documented as of this encounter (statuses as of 10/05/2023) Resolved Problems Problem Noted Date Diagnosed Date Resolved Date Hypertensive kidney disease with chronic kidney disease stage III 02/15/2019 03/28/2020 Overview: Per CKD protocol Prediabetes 10/28/2014 05/27/2016 Hypertension goal BP (blood pressure) < 140/90 05/22/2014 05/27/2016 Subjective tinnitus 05/03/2013 06/02/19 18 Neuropathy 11/02/2012 06/02/2017 HTN, goal below 130/80 06/12/200905/22 Overview: Modified per HTN Taxonomy. Dyslipidemia, goal LDL below 100 05/23/2009 05/31/2018 Palpitations 05/16/2009 06/02/2017 HTN, GOAL BELOW 140/90 03/22/200906/12 Overview: Modified per HTN Taxonomy. Disorder of bone and cartilage 02/16/2008 03/27/2009 ADVANCE DIRECTIVE INFORMATION 07/08/2005 06/02/2017 Overview: No, Advance Directive brochure offered , patient declined. Lateral epicondylitis 09/23/20042007 Trigger finger 04/03/2004 02/15/2008 Mixed dyslipidemia 03/25/2004 9 Overview: Per Lipid Taxonomy. FX [id number] 01/16 BENIGN HYPERTENSION 03/22/20 09 Overview: Modified per HTN Taxonomy. Dyslipidemia, goal LDL below 160 09/19/2008 Contact dermatitis and other eczema due to other specified agent 03/27/2009 Impaired fasting glucose Vitamin D deficiency 018 Abnormal results of liver function studies 11/03/2011 Senile osteoporosis 05/03/20 13 Kidney disease, chronic, sta ge III (GFR 30-59 ml/min) 03/01/2019 documented as of this encounter (statuses as of 10/05/2023) Immunizations Name Administration Dates Next Due COVID-19 mRNA, LNP-s, No Pre serve, 2-Dose Series (Moderna) 09/13/2020,08/16/2020 COVID-19, LNP-s, No Preserve , Matt-sucrose, Ages 12+ (Pfizer) 11/18/2021 COVID-19, MRNA-LNP, 23-24, P F, 30 MCG/0.3 mL, 12 YRS AND ABOVE, IM (PFIZER-Comirnat) 05/28/2023 COVID-19, mRNA, LNP-s, PF, B ooster, 100mcg/0.5mg (Moderna) 05/20/2021 Covid-19, Mrna, Lnp-s, Pf, B ivalent, 30 Mcg, IM, 12 yrs and above (Pfizer) 05/28/2022 Pneumococcal Conjugate Vacc, 13 Valent (Prevnar) 05/23/2015 Pneumococcal Polysaccharide PPV23 (Pneumovax) 02/16/2008 Season Influenza, Quad, PF, Adjuvanted, 65+ Yrs, IM (FLUAD) 01/19/2020 Seasonal Influenza, PF, 6 M & above, IM , (FluLaval or Fluzone) 06/15/2018 Seasonal Influenza, Quadriva lent Hd (Fluzone Hd) 01/29/2023,03/03/2022 Seasonal Influenza, Quadriva lent Hd, 65+ Yrs 01/24/2021 Seasonal Influenza, Quadriva lent, No Preserve, IM 02/23/2019,02/23/2017,05/23/2015 Seasonal Influenza, Split, I IV3, With Preserve, Inj 03/17/2016,05/02/2014,05/03/2013,04/16,04/14/2011,04/09/2010,04/16/20 09,02/16/2008,04/05/2003,05/02/2001 05/02/2002 TB Jennifer Test 02/07/1985 TD, Preservative Free 02/16/2008 TDAP (age 10 and older)(Boostrix) 10/31/2019 Varicella Zoster Vaccine (Adult) 06/17/2012 Zoster Vaccine Recombinant (Shingrix) 03/02/2020 ,01/01/2020,10/31/2019 documented as of this encounter Social History Tobacco Use Types Packs/Day Years Used Date Smoking Tobacco: Never Smokeless Tobacco: Never Alcohol Use Standard Drinks/Week Comments Yes 0 (1 standard drink = 0.6 oz pur e alcohol) very rare use PHQ-2 Answer Date Recorded PHQ Adult Total Score 1 06/01/2022 Hunger Vital Sign Answer Date Recorded Within the past 12 months, y ou worried that your food would run out before you got the money to buy more. Never true 06/01/19 Within the past 12 months, t he food you bought just didn't last and you didn't have money to get more. Never true 06/01/2022 Sex and Gender Information Value Date Recorded Sex Assigned at Female 05/22/2021 9:14 AM EST Gender Identity Female 05/22/2021 9:14 AM EST Sexual Orientation Straight 05/22/2021 9: 14 AM EST Job Start Date Occupation Industry Not on file Not on file Not on file documented as of this encounter Functional Status Functional Status Response Date of Assess ment Are you deaf or do you have serious difficulty h earing? No 01/06/2023 Are you blind or do you have serious difficulty seeing, even when wearing glasses? No 01/06/2023 Do you have serious difficul ty walking or climbing stairs? (5 years old or older) No 01/06/2023 Do you have difficulty dress ing or bathing? (5 years old or older) No 01/06/2023 Because of a physical, menta l, or emotional condition, do you have difficulty doing errands alone such as visiting a doctor s office or shopping? (15 years old or older) No 01/07/20 Cognitive Status Response Date of Assessm ent Because of a physical, menta l, or emotional condition, do you have serious difficulty concentrating, remembering, or making decisions? (5 years old or older) Yes 01/06/2023 documented as of this encounter Plan of Treatment Upcoming Encounters Date Type Department Care Team (Late st Contact Info) Description 12/02/2023 8:00 AM EDT Laboratory Laboratory [address] [place] [phone] [address] [place] [address] 12/31/2023 8:50 AM EDT Office Visit Family Medicine [address] [place] [phone] Rebeca [address] [place] [address] 03/14/2024 2:40 PM EDT Office Visit Nephrology [address] [place] [address] Yanet Easley MD [address] [place] [address] 03/16/2024 8:00 AM EDT Office Visit Cardiology [address] [place] [address] Yassine Rodriguez PA-C [address] [place] [address] Scheduled Procedures Name Priority Associated Diagnoses Date/Ti me COLONOSCOPY FLEXIBLE PROXIMAL DIAGNOSTIC Recall History of colon polyps Health Maintenance Due Date Last Done Comments Depression Screening 06/01/2023 06/01/2022 COVID-19 Vaccine ( season) 2023 05/28/2023, 05/28/2022, 11/18/2021, Additional history exists GFR 11/17/2023 05/19/2023, 11/0 05/2022, 03/04/2023, Additional history exists CKD HGB USE SMARTSET 55452 05/19/202405/19, 05/19/2023, 01/29/2023, Additional history exists Albumin/Creatinine Ratio 10/03/2024 024, 09/21/2022, 05/19/2022, Additional history exists CKD PHOS USE SMARTSET 37208 10/03/202409/15, 05/19/2023, 05/19/2022, Additional history exists DTaP,Tdap,and Td Vaccines (2 - Td or Tdap) 10/30/2029 10/31/2019, 02/16/2008 Pneumococcal Vaccine: 65+ Years Completed 05/23/2015, 02/16/2008 RETIRED - COLONOSCOPY-EVERY 5 YRS AGES 18-100 Discontinued 12/08/2017, 12/08/2017, 12/01/2011, Additional history exists Zoster Vaccines Completed 03/02/2020, 12/15, 10/31/2019, Additional history exists Influenza Vaccine (FLU shot) Completed 01/29/2023, 01/29/2023, 03/03/2022, Additional history exists GARDASIL-HPV IMMUNIZATION SERIES Aged Out No longer eligible based on patient's age to complete this topic Hepatitis B Aged Out No longer eligi ble based on patient's age to complete this topic MENINGOCOCCAL (MENACTRA/MENVEO) Aged Out No longer eligible based on patient's age to complete this topic documented as of this encounter Medical Devices Implanted Type Area Guitar Maker Device Identifier Shelf Expiration Date Model / Serial / Lot Lens Intraoc 24.5 - [id number] - [id number] Implanted:Qty: 1 on 03/25/2021 by Galen Chang MD at OR [facility] Left: Eye [employer]OM[employer] 12/14/2025 [id number] / [id number] / [id number] Lens Intraoc 24.0 - [id number] - [id number] Implanted:Qty: 1 on 04/01/2021 by Galen Chang MD at OR [facility] Right: Eye [employer]CH [employer] LOMB 08/14/2024 [id number] / [id number] / [id number] documented as of this encounter Procedures Procedure Name Priority Date/Time Associated Diagnosis Comments URINALYSIS WITH MICROSCOPIC EXAM Routine 10/04/2023 8:39 AM EDT Persistent proteinuria ALBUMIN / CREATININE RATIO, URINE Routine 10/04/2023 8:38 AM EDT Persistent proteinuria MYCODE SST1 Routine 10/04/2023 8:10 AM EDT [employer] Other*[id number] MYCODE INITIAL ADULT-2SST Routine 10/04/2023 8:10 AM EDT [employer] Other*[id number] MYCODE SUBSEQUENT ADULT Routine 10/04/2023 8:10 AM EDT [employer] Other*[id number] 25-HYDROXY VITAMIN D Routine 10/04/2023 8:10 AM EDT Chronic kidney disease with symptom management only, stage 3 (moderate) (HCC) IRON SCREEN, INCLUDING TIBC Routine 10/04/2023 8:10 AM EDT Encounter for vitamin deficiency screening PHOSPHORUS Routine 10/04/2023 8:10 AM EDT Chronic kidney disease with symptom management only, stage 3 (moderate) (HCC) FERRITIN Routine 10/04/2023 8:10 AM EDT Encounter for vitamin deficiency screening VITAMIN B12 Routine 10/04/2023 8:10 AM EDT Encounter for vitamin deficiency screening documented in this encounter Results * (ABNORMAL) URINALYSIS WITH MICROSCOPIC EXAM (10/04/2023 8:39 AM EDT) Color, Urine Yellow Colorless, Light Yellow, Yellow, Dark Yellow 10/04/2023 4:46 PM EDT [facility] Clarity, Urine Cloudy(A) Clear 10/04/2023 4:46 PM EDT [facility] Glucose, Urine Negative Negative mg/dL 10/04/2023 4:46 PM EDT [facility] Bilirubin, Urine Negative Negative 10/04/2023 4:46 PM EDT [facility] Ketone, Urine Negative Negative mg/dL 10/04/2023 4:46 PM EDT [facility] Specific [place], Urine 1.014 1.003 - 1.030 10/04/2023 4:46 PM EDT [facility] Blood, Urine Moderate(A) Negative 10/04/2023 4:46 PM EDT [facility] pH, Urine 8.0(H) 5.0 - 7.5 Units 10/04/2023 4:46 PM EDT [facility] Protein, Urine 100(A) Negative mg/dL 10/04/2023 4:46 PM EDT [facility] Urobilinogen, Urine Normal Normal mg/dL 10/04/2023 4:46 PM EDT LABORATORY C Nitrite, Urine Negative Negative 10/04/2023 4:46 PM EDT LABORATORY C Esterase, Urine Large(A) Negative 10/04/2023 4:46 PM EDT [facility] RBC, Urine 10-19(A) 0 - 2 /HPF 10/04/2023 4:46 PM EDT [facility] WBC, Urine 50+(A) 0 - 2 /HPF 10/04/2023 4:46 PM EDT [facility] Bacteria, Urine 151-200(A) 0 - 25 /HPF 10/04/2023 4:46 PM EDT [facility] Squamous Epithelial Cells, Urine Many(A) None /HPF 10/04/2023 4:46 PM EDT [facility] WBC Clumps, Urine Present(A) None /HPF 10/04/2023 4:46 PM EDT [facility] Urine Urine specimen / Unknown Non-blood Collection / Unknown 10/04/2023 8:39 AM EDT 10/04/2023 8:39 AM EDT Valerie Valdivia PA-C LAB URINE ORD ERABLES [facility] [address] [place] [address] * (ABNORMAL) ALBUMIN / CREATININE RATIO, URINE (10/04/2023 8:38 AM EDT) Albumin, Random Urine 36.54 mg/dL 10/04/2023 5:56 PM EDT [facility] Creatinine, Random Urine 116 mg/dL 10/04/2023 5:56 PM EDT [facility] Albumin / Creatinine Ratio, Urine 315(H) <30 mg/g Creat 10/04/2023 5:56 PM EDT [facility] Urine Urine specimen / Unknown Non-blood Collection / Unknown 10/04/2023 8:38 AM EDT 10/04/2023 8:38 AM EDT Narrative [facility] - 10/04/2023 5:56 PM EDT Normal: <30 mg/g creatinine High: 30-300 mg/g creatinine Very High: >300 mg/g creatinine Nephrotic: >2200 mg/g creatinine Valerie Valdivia PA-C LAB URINE ORD ERABLES [facility] [address] [place] [address] * MYCODE SST2 (10/04/2023 8:10 AM EDT) MyCode Specimen Freezing of extracted DNA, whole blood and/or serum. 10/05/2023 10:01 AM EDT [facility] Blood Venous blood specimen / Unknown Venipuncture / Unknown 10/04/2023 8:10 AM EDT 10/04/2023 8:11 AM EDT Katerin Null OXANADavid LAB BLOOD ORDERABLES Performing Organization Address [facility] Co de Phone Number LABORATORY [facility] [address] [place] [address] * MYCODE SST1 (10/04/2023 8:10 AM EDT) MyCode Specimen Freezing of extracted DNA, whole blood and/or serum. 10/05/2023 10:01 AM EDT LABORATORY C Blood Venous blood specimen / Unknown Venipuncture / Unknown 10/04/2023 8:10 AM EDT 10/04/2023 8:11 AM EDT Katerin Devendra Null OXANAA LAB BLOOD ORDERABLES [facility] [address] [place] [address] * PHOSPHORUS (10/04/2023 8:10 AM EDT) Phosphorus 2.8 2.5 - 4.8 mg/dL 10/04/2023 5:05 PM EDT [facility] Blood Venous blood specimen / Unknown Venipuncture / Unknown 10/04/2023 8:10 AM EDT 10/04/2023 8:11 AM EDT Valerie MONTANOC LAB BLOOD ORD ERABLES LABORATORY [address] [address] * 25-HYDROXY VITAMIN D (10/04/2023 8:10 AM EDT) 25-Hydroxy Vitamin D 83 >19 ng/mL 10/04/2023 6:04 PM EDT LAB[facility]ORY [facility] Blood Venous blood specimen / Unknown Venipuncture / Unknown 10/04/2023 8:10 AM EDT 10/04/2023 8:11 AM EDT Narrative LAB[facility]ATORY [facility] - 10/04/2023 6:04 PM EDT Deficient: <20 ng/mL Insufficient: 20-29 ng/mL Recommended/Optimum:30-50 ng/mL Vitamin D intoxication is rare. If suspicious of Vitamin D toxicity, evaluation of serum Calcium and PTH is recommended. Valerie Valdivia PA-C LAB BLOOD ORD ERABLES Performing Organization Address [facility] Co de Phone Number LABORATORY [address] [address] * VITAMIN B12 (10/04/2023 8:10 AM EDT) Vitamin B12 935 232 - 1,245 pg/mL 10/04/2023 6:04 PM EDT [facility]ORY [facility] Blood Venous blood specimen / Unknown Venipuncture / Unknown 10/04/2023 8:10 AM EDT 10/04/2023 8:11 AM EDT Rebeca Swift DO LAB BLOOD ORDERABLES Performing Organization Address City/[facility]/ZIP Co de Phone Number LABORATORY [address] [address] * IRON SCREEN, INCLUDING TIBC (10/04/2023 8:10 AM EDT) Iron 82 33 - 151 ug/dL 10/04/2023 5:05 PM EDT LAB[facility]ATORY [facility] Iron Binding Capacity 260 250 - 425 ug/dL 10/04/2023 5:05 PM EDT LAB[facility] Transferrin Saturation Percent 32 15 - 55 % 10/04/2023 5:05 PM EDT [facility]ORY [facility] Blood Venous blood specimen / Unknown Venipuncture / Unknown 10/04/2023 8:10 AM EDT 10/04/2023 8:11 AM EDT Rebeca Swift LAB BLOOD ORDERABLES LAB[facility]ATORY [facility] [address] [place] [address] * (ABNORMAL) FERRITIN (10/04/2023 8:10 AM EDT) Ferritin 598(H) 13 - 150 ng/mL 10/04/2023 6:04 PM EDT LAB[facility]ATORY [facility] Comment:Postmenopausal women have higher ferritin levels than pre-menopausal women. The above reference interval is based on pre-menopausal women. Blood Venous blood specimen / Unknown Venipuncture / Unknown 10/04/2023 8:10 AM EDT 10/04/2023 8:11 AM EDT Rebeca Swift LAB BLOOD ORDERABLES Performing Organization Address City/[facility]/ZIP Co de Phone Number LAB[facility]ATORY [facility] [address] [place] [address] documented in this encounter Visit Diagnoses Diagnosis [employer] Other*[id number] Encounter for vitamin deficiency screening Screening for other and unspecified endocrine, nutritional, metabolic, and immunity disorders Persistent proteinuria Proteinuria Chronic kidney disease with symptom management only, stage 3 (moderate) (HCC) documented in this encounter Advance Directives Documents on File Type Date Recorded Patient Case Planner Expl anation Advance Directives and Living Will 10/06/2017 ADVANCE DIRECTIVE / LIVING WILL Power of Manager [employer] 10/06/2017 POWER OF A TTORNEY * Full Code (Latest Code Status on File) Date Activated Date Inactivated Comments 01/06/2023 12:08 PM 01/07/2023 2:28 PM This order reflects the patients wishes and were consensually agreed upon. Question Answer Comments Discussion of Advance Direct cholo occurred with: Not Discussed due to patient's condition * Full Code Date Activated Date Inactivated Comments 01/06/2023 8:33 AM 01/06/2023 12:08 PM Question Answer Comments Discussion of Advance Direct cholo occurred with: Not Discussed due to patient's condition Care Teams Sales Service Rep Relationship Specialty Start Date End Date Rebeca Swift DO [address] [place] [address] [place] [phone] PCP - General Internal Medicine 01/08/17 documented as of this encounter
--- OUTSIDE RECORDS SUMMARY | 2023-10-23 17:33 | External Medical Summary | Summary of Care ---
Author Name Unknown Organization [facility] Address [address] [place] [address] Phone [phone] Care Team Providers Care Quality Control Coordinator Name Role Phone Rebeca Swift Primary Care Provider Reason for Visit * Reason Comments Outpatient Testing Encounter Details Date Type Department Care Team (Late st Contact Info) Description 10/22/2023 9:30 AM EDT Laboratory Laboratory [address] [place] [phone] [place] [address] Arrived Allergies Active Allergy Reactions Criticality Noted Date Comments Oxycodone Nausea/vomiting Medium 05/02/2014 documented as of this encounter (statuses as of 10/22/2023) Medications Medication Sig Dispensed Refills Start Date [...] as of this encounter (statuses as of 10/22/2023) Active Problems Problem Noted Date Diagnosed Date Liver cyst 01/06/2023 Family history of kidney disease in brother 09/2021 Overview: GPA Primary osteoarthritis of both [...] as of this encounter (statuses as of 10/22/2023) Resolved Problems Problem Noted Date Diagnosed Date [...] 03/25/2004 9 Overview: Per Lipid Taxonomy. FX [id number] 01/16 BENIGN HYPERTENSION 03/22/20 09 Overview: Modified per HTN Taxonomy. Dyslipidemia, goal LDL below 160 09/19/2008 Contact dermatitis and other eczema due to other specified agent 03/27/2009 Impaired fasting glucose Vitamin D deficiency 018 Abnormal results of liver function studies 11/03/2011 Senile osteoporosis 05/03/20 13 Kidney disease, chronic, sta ge III (GFR 30-59 ml/min) 03/01/2019 documented as of this encounter (statuses as of 10/22/2023) Immunizations Name Administration Dates Next Due COVID-19 mRNA, LNP-s, No Pre serve, 2-Dose Series (Moderna) 09/13/2020,08/16/2020 COVID-19, LNP-s, No Preserve , Matt-sucrose, Ages 12+ (Pfizer) 11/18/2021 COVID-19, MRNA-LNP, 23-24, P F, 30 MCG/0.3 mL, 12 YRS AND ABOVE, IM (PFIZER-Comirnaty) 05/28/2023 COVID-19, mRNA, LNP-s, PF, B ooster, [...] Influenza, Split, I IV3, With Preserve, Inj 03/17/2016,05/02/2014,05/03/2013,05/04,04/14/2011,04/09/2010,04/16/2009 ,02/16/2008 TD, Preservative Free 02/16/2008 TDAP (age 10 [...] Description 12/02/2023 8:00 AM EDT Laboratory Laboratory [address] [place] [phone] [place], Lab [address] [place] [address] 12/31/2023 8:50 AM EDT Office Visit Family Medicine [address] [place] [phone] Rebeca Swift [address] [place] [address] 03/14/2024 2:40 PM EDT Office Visit Nephrology [address] [place] [address] Yanet Easley MD [address] [place] [address] 03/16/2024 8:00 AM EDT Office Visit Cardiology [address] [place] [address] Yassine Rodriguez PA-C [address] [place] [address] Scheduled Procedures Name Priority Associated Diagnoses Date/Ti me COLONOSCOPY FLEXIBLE PROXIMAL DIAGNOSTIC Recall History of colon polyps Health Maintenance Due Date Last Done Comments Depression Screening 06/01/2023 06/01/2022 COVID-19 Vaccine ( season) 2023 05/28/2023, 05/28/2022, 11/18/2021, Additional history exists GFR 11/17/2023 05/19/2023, 11/0 05/2022, 03/04/2023, Additional history exists CKD HGB USE SMARTSET 00273 05/19/202405/19, 05/19/2023, 01/29/2023, Additional history exists Albumin/Creatinine Ratio 10/03/2024 024, 09/21/2022, 05/19/2022, Additional history exists CKD PHOS USE SMARTSET 55153 10/03/202409/15, 05/19/2023, 05/19/2022, Additional history exists DTaP,Tdap,and [...] this encounter Medical Devices Implanted Type Area Door Fitter Device Identifier Shelf Expiration Date Model / Serial / Lot Lens Intraoc 24.5 - [id number] - [id number] Implanted:Qty: 1 on 03/25/2021 by Galen Chang MD at OR [facility] Left: Eye [employer]OM[employer] 12/14/2025 [id number] / [id number] / [id number] Lens Intraoc 24.0 - [id number] - [id number] Implanted:Qty: 1 on 04/01/2021 by Galen Chang MD at OR [facility] Right: Eye [employer]CH [employer]OMB 08/14/2024 [id number] / [id number] / [id number] documented as of this encounter Advance Directives Documents on File Type Date Recorded Patient Folder Stitcher Operator Expl anation Advance Directives and Living Will 10/06/2017 ADVANCE DIRECTIVE / LIVING WILL Power of Linter Tender 10/06/2017 POWER OF A TTORNEY * Full [...] Discussed due to patient's condition Care Teams Quality Control Coordinator Relationship Specialty Start Date End Date Rebeca Swift DO [address] [place] [address] [place] [phone] PCP - General Internal Medicine 01/08/17 documented as of this encounter
--- OUTSIDE RECORDS SUMMARY | 2023-10-23 17:33 | External Medical Summary ---
Author Name Unknown Address Unknown Organization K01:[facility] - [facility] [address] [facility] [address] [facility] [address] Laboratory Report Ordering Provider Test Date Status EDDIE ANDREW 10/22/2023 09:31:17 Mary l Observation Date Value Abnormality Reference (Units ) Status BUN 10/22/2023 09:31:17 13 6-20 (mg/dL) Final Creatinine 10/22/2023 09:31:17 1.5 Above high normal 0.5-1.0 (mg/dL) Final Glomerular filtration rate/1.73 sq M.predicted [Volume Rate/Area] in Serum, Plasma or Blood by Creatinine-based formula (CKD-EPI) 10/22/2023 09:31:17 35 Below low normal >=60 (mL/min) Final eGFR is calculated based on the CKD-EPI 2020 equation Sodium 10/22/2023 09:31:17 146 135-146 (m mol/L) Final Potassium 10/22/2023 09:31:17 2.4 Below lower panic li mits 3.5-5.1 (mmol/L) Final Cl 10/22/2023 09:31:17 98 98-107 (mm ol/L) Final CO2 10/22/2023 09:31:17 33 Above high normal 22 -32 (mmol/L) Final Anion gap 10/22/2023 09:31:17 15 7-15 (mmol /L) Final Glucose 10/22/2023 09:31:17 115 70-120 (mg /dL) Final Calcium 10/22/2023 09:31:17 9.7 8.4-10.2 ( mg/dL) Final Performing Location [facility] - [address] [facility] [address]
--- OUTSIDE RECORDS SUMMARY | 2023-10-23 17:33 | External Medical Summary | Summary of Care ---
Author Name Unknown Organization [facility] Address [address] [place] [address] Phone [phone] Care Team Providers Care Tennis Ball Cover Cementer Name Role Phone Rebeca Swift Primary Care Provider [phone] Reason for Visit * Reason Onset Date Comments Test Results 10/21/2023 Encounter Details Date Type Department Care Team (Late st Contact Info) Description 10/21/2023 Telephone Nephrology, [place] [address] [facility] [place] [address] ZemaitisValerie PA-C [address] [facility] [place] [address] Test Results Allergies Active Allergy Reactions Criticality Noted Date [...] Family history of kidney disease in brother 0 09/2021 Overview: GPA Primary osteoarthritis of both [...] 03/25/2004 9 Overview: Per Lipid Taxonomy. FX [id number] 01/16 BENIGN HYPERTENSION 03/22/20 09 Overview: Modified [...] Yes 01/06/2023 documented as of this encounter Miscellaneous Notes * Telephone Encounter - Rebeca Swift DO - 10/22/2023 1:37 PM EDT Pt seen by Dr. Agarwal. * Telephone Encounter - Jerica Fontenot LPN - 10/21/2023 2:[address] Jamison MARES pt will be contacting you office in follow up * Telephone Encounter - Jerica Fontenot LPN - 10/21/2023 2:22 PM EDT Spoke with patient she denies dysuria burning or frequency no back or abd pain No fever or chills She is aware urine is active Pt will call PCP in f/u in AM This note will be sent to PCP to review * Telephone Encounter - Jerica Fontenot LPN - 10/21/2023 2:17 PM EDT ----- Message from Valerie Valdivia sent at 10/21/2023 1:52 PM EDT ----- Large hematuria and bacteria noted which both appear chronic -please inquire about UTI symptoms - please assist patient with follow up with PCP office for further evaluation if not already completed documented in this encounter Plan of Treatment Upcoming Encounters Date Type Department Care Team (Late st Contact Info) Description 12/02/2023 8:00 AM EDT Laboratory Laboratory [address] [place] [phone] [place], Lab [address] [place] [address] 12/31/2023 8:50 AM EDT Office Visit Family Medicine [address] [place] [phone] [place] [address] 03/14/2024 2:40 PM EDT Office Visit Nephrology [address] [place] [address] Yanet Easley MD [address] [place] [address] [place] [address] 03/16/2024 8:00 AM EDT Office Visit Cardiology [address] [place] [address] Yassine Rodriguez PA-C [address] [place] [address] Scheduled Procedures Name Priority Associated Diagnoses Date/Ti me COLONOSCOPY FLEXIBLE PROXIMAL DIAGNOSTIC Recall History of colon polyps Health Maintenance Due Date Last Done Comments Depression Screening 06/01/2023 06/01/2022 COVID-19 Vaccine (2022- season) 2023 05/28/2023, 05/28/2022, 11/18/2021, Additional history exists GFR 11/17/2023 05/19/2023, 11/0 05/2022, 03/04/2023, Additional history exists CKD HGB USE SMARTSET 89531 05/19/202405/19, 05/19/2023, 01/29/2023, Additional history exists Albumin/Creatinine Ratio 10/03/2024 024, 09/21/2022, 05/19/2022, Additional history exists CKD PHOS USE SMARTSET 45870 10/03/20242 , 05/19/2023, 05/19/2022, Additional history exists DTaP,Tdap,and Td [...] this encounter Medical Devices Implanted Type Area Car Supplier Device Identifier Shelf Expiration Date Model / Serial / Lot Lens Intraoc 24.5 - [id number] - [id number] Implanted:Qty: 1 on 03/25/2021 by Galen Chang MD at OR [facility] Left: Eye [employer]OMB 12/14/2025 [id number] / [id number] / [id number] Lens Intraoc 24.0 - [id number] - [id number] Implanted:Qty: 1 on 04/01/2021 by Galen Chang MD at OR [facility] Right: Eye BA[employer]CH [employer] LOMB 08/14/2024 [id number] / [id number] / [id number] documented as of this encounter Advance Directives Documents on File Type Date Recorded Patient Electoral Officer Expl anation Advance Directives and Living Will 10/06/2017 ADVANCE DIRECTIVE / LIVING WILL Power of Skeiner 10/06/2017 POWER OF A TTORNEY * Full [...] Discussed due to patient's condition Care Teams Tennis Ball Cover Cementer Relationship Specialty Start Date End Date Rebeca Swift DO [address] [place] [address] [place] [phone] PCP - General Internal Medicine 01/08/17 documented as of this encounter
--- OUTSIDE RECORDS SUMMARY | 2023-10-23 17:33 | External Medical Summary | Summary of Care ---
Author Name Unknown Organization [facility] Address [address] [place] [address] Phone [phone] Care Team Providers Care Bingo Floater Name Role Phone Rebeca Swift Primary Care Provider Reason for Visit * Reason Comments Outpatient Testing Encounter Details Date Type Department Care Team (Late st Contact Info) Description 10/04/2023 8:10 AM EDT Laboratory Laboratory [address] [place] [phone] [place] [address] Code Climate Other*[id number]; Encounter for vitamin deficiency screening; Persistent proteinuria; Chronic kidney disease with symptom management only, stage 3 (moderate) ([facility]) Allergies Active Allergy Reactions Criticality Noted Date [...] 03/25/2004 9 Overview: Per Lipid Taxonomy. FX [id number] 01/16 BENIGN HYPERTENSION 03/22/20 09 Overview: Modified [...] Description 12/02/2023 8:00 AM EDT Laboratory Laboratory [address] [place] [phone] [address] [place] [address] 12/31/2023 8:50 AM EDT Office Visit Family Medicine [address] [place] [phone] Rebeca Swift[address] [place] [address] 03/14/2024 2:40 PM EDT Office Visit Nephrology [address] [place] [address] Yanet Easley MD [address] [place] [address] 03/16/2024 8:00 AM EDT Office Visit Cardiology [address] [place] [address] Yassine Rodriguez PA-C [address] [place] [address] Scheduled Procedures Name Priority Associated Diagnoses Date/Ti me COLONOSCOPY FLEXIBLE PROXIMAL DIAGNOSTIC Recall History of colon polyps Health Maintenance Due Date Last Done Comments Depression Screening 06/01/2023 06/01/2022 COVID-19 Vaccine ( season) 2023 05/28/2023, 05/28/2022, 11/18/2021, Additional history exists GFR 11/17/2023 05/19/2023, 11/0 05/2022, 03/04/2023, Additional history exists CKD HGB USE SMARTSET 20980 05/19/202405/19, 05/19/2023, 01/29/2023, Additional history exists Albumin/Creatinine Ratio 10/03/2024 024, 09/21/2022, 05/19/2022, Additional history exists CKD PHOS USE SMARTSET 69970 10/03/202409/15, 05/19/2023, 05/19/2022, Additional history exists DTaP,Tdap,and [...] this encounter Medical Devices Implanted Type Area Central Office Technician Device Identifier Shelf Expiration Date Model / Serial / Lot Lens Intraoc 24.5 - [id number] - [id number] Implanted:Qty: 1 on 03/25/2021 by Galen Chang MD at OR [facility] Left: Eye BAUSCH [employer] LOMB 12/14/2025 [id number] / [id number] / [id number] Lens Intraoc 24.0 - [id number] - [id number] Implanted:Qty: 1 on 04/01/2021 by Galen Chang MD at OR [facility] Right: Eye BAUSCH & LOMB 08/14/2024 [id number] / [id number] / [id number] documented as of this encounter Procedures Procedure Name Priority Date/Time Associated Diagnosis Comments URINALYSIS WITH MICROSCOPIC EXAM Routine 10/04/2023 8:39 AM EDT Persistent proteinuria ALBUMIN / CREATININE RATIO, URINE Routine 10/04/2023 8:38 AM EDT Persistent proteinuria MYCODE SST1 Routine 10/04/2023 8:10 AM EDT Code Climate Other*[id number] MYCODE INITIAL ADULT-2SST Routine 10/04/2023 8:10 AM EDT MyCode Research Other*[id number] MYCODE SUBSEQUENT ADULT Routine 10/04/2023 8:10 AM EDT MyCode Research Other*[id number] 25-HYDROXY VITAMIN D Routine 10/04/2023 8:10 AM [...] 10/04/2023 4:46 PM EDT [facility] Specific [place], Urine 1.014 1.003 - 1.030 10/04/2023 4:46 PM EDT [facility] Blood, Urine Moderate(A) Negative 10/04/2023 4:46 PM EDT [facility] pH, Urine 8.0(H) 5.0 - 7.5 Units 10/04/2023 4:46 PM EDT [facility] Protein, Urine 100(A) Negative mg/dL 10/04/2023 4:46 PM EDT [facility] Urobilinogen, Urine Normal Normal mg/dL 10/04/2023 4:46 [...] Valdivia PA-C LAB URINE ORD ERABLES [facility] [address] [place] [address] * (ABNORMAL) ALBUMIN / CREATININE RATIO, URINE (10/04/2023 8:38 AM EDT) Albumin, Random Urine 36.54 mg/dL 10/04/2023 5:56 PM EDT [facility] Creatinine, Random Urine 116 mg/dL 10/04/2023 5:56 PM EDT [facility] Albumin / Creatinine Ratio, Urine 315(H) <30 mg/g Creat 10/04/2023 5:56 PM EDT [facility] Urine Urine specimen / Unknown Non-blood Collection / Unknown 10/04/2023 8:38 AM EDT 10/04/2023 8:38 AM EDT Narrative [facility] - 10/04/2023 5:56 PM EDT Normal: <30 mg/g creatinine High: 30-300 mg/g creatinine Very High: >300 mg/g creatinine Nephrotic: >2200 mg/g creatinine Valerie Valdivia PA-C LAB URINE ORD ERABLES [facility] [address] [place] [address] * MYCODE SST2 (10/04/2023 8:10 AM EDT) MyCode Specimen Freezing of extracted DNA, whole blood and/or serum. 10/05/2023 10:01 AM EDT [facility] Blood Venous blood specimen / Unknown Venipuncture / Unknown 10/04/2023 8:10 AM EDT 10/04/2023 8:11 AM EDT Katerin Null OXANADavid LAB BLOOD ORDERABLES Performing Organization Address [facility] Co de Phone Number [facility] [address] [place] [address] * MYCODE SST1 (10/04/2023 8:10 AM EDT) MyCode Specimen Freezing of extracted DNA, whole blood and/or serum. 10/05/2023 10:01 AM EDT LABORATORY C Blood Venous blood specimen / Unknown Venipuncture / Unknown 10/04/2023 8:10 AM EDT 10/04/2023 8:11 AM EDT Katerin Devendra Null OXANAA LAB BLOOD ORDERABLES [facility] [address] [place] [address] * PHOSPHORUS (10/04/2023 8:10 AM EDT) Phosphorus 2.8 2.5 - 4.8 mg/dL 10/04/2023 5:05 PM EDT [facility] Blood Venous blood specimen / Unknown Venipuncture / Unknown 10/04/2023 8:10 AM EDT 10/04/2023 8:11 AM EDT Valerie MONTANOC LAB BLOOD ORD ERABLES LABORATORY [address] [address] * 25-HYDROXY VITAMIN D (10/04/2023 8:10 AM EDT) 25-Hydroxy Vitamin D 83 >19 ng/mL 10/04/2023 6:04 PM EDT [facility] Blood Venous blood specimen / Unknown Venipuncture / Unknown 10/04/2023 8:10 AM EDT 10/04/2023 8:11 AM EDT Narrative [facility] - 10/04/2023 6:04 PM EDT Deficient: <20 ng/mL Insufficient: 20-29 ng/mL Recommended/Optimum:30-50 ng/mL Vitamin D intoxication is rare. If suspicious of Vitamin D toxicity, evaluation of serum Calcium and PTH is recommended. Valerie Valdivia PA-C LAB BLOOD ORD ERABLES Performing Organization Address [facility] Co de Phone Number LABORATORY [address] [address] * VITAMIN B12 (10/04/2023 8:10 AM EDT) Vitamin B12 935 232 - 1,245 pg/mL 10/04/2023 6:04 PM EDT [facility] Blood Venous blood specimen / Unknown Venipuncture / Unknown 10/04/2023 8:10 AM EDT 10/04/2023 8:11 AM EDT Rebeca Swift DO LAB BLOOD ORDERABLES Performing Organization Address City/[facility]/ZIP Co de Phone Number LABORATORY [address] [address] * IRON SCREEN, INCLUDING TIBC (10/04/2023 8:10 AM EDT) Iron 82 33 - 151 ug/dL 10/04/2023 5:05 PM EDT [facility] Iron Binding Capacity 260 250 - 425 ug/dL 10/04/2023 5:05 PM EDT [facility] Transferrin Saturation Percent 32 15 - 55 % 10/04/2023 5:05 PM EDT [facility] Blood Venous blood specimen / Unknown Venipuncture / Unknown 10/04/2023 8:10 AM EDT 10/04/2023 8:11 AM EDT Rebeca Swift LAB BLOOD ORDERABLES [facility] [address] [place] [address] * (ABNORMAL) FERRITIN (10/04/2023 8:10 AM EDT) Ferritin 598(H) 13 - 150 ng/mL 10/04/2023 6:04 PM EDT [facility] Comment:Postmenopausal women have higher ferritin levels than pre-menopausal women. The above reference interval is based on pre-menopausal women. Blood Venous blood specimen / Unknown Venipuncture / Unknown 10/04/2023 8:10 AM EDT 10/04/2023 8:11 AM EDT Rebeca Swift LAB BLOOD ORDERABLES Performing Organization Address City/[facility]/ZIP Co de Phone Number [facility] [address] [place] [address] documented in this encounter Visit Diagnoses Diagnosis MyCode Research Other*[id number] Encounter for vitamin deficiency screening Screening for other and unspecified endocrine, nutritional, metabolic, and immunity disorders Persistent proteinuria Proteinuria Chronic kidney disease with symptom management only, stage 3 (moderate) (HCC) documented in this encounter Advance Directives Documents on File Type Date Recorded Patient Bible Worker Expl anation Advance Directives and Living Will 10/06/2017 ADVANCE DIRECTIVE / LIVING WILL Power of Professional Benefits Sales Consultant 10/06/2017 POWER OF A TTORNEY * Full [...] Discussed due to patient's condition Care Teams Bingo Floater Relationship Specialty Start Date End Date Rebeca Swift DO [address] [place] [address] [place] [phone] PCP - General Internal Medicine 01/08/17 documented as of this encounter
--- OUTSIDE RECORDS SUMMARY | 2023-10-23 17:33 | External Medical Summary | Summary of Care ---
Author Name Unknown Organization [facility] Address [address] [place] [address] Phone [phone] Care Team Providers Care Director Of Dementia Operations Name Role Phone Rebeca Swift Primary Care Provider Encounter Details Date Type Department Care Team (Late st Contact Info) Description 10/23/2023 Telephone Family Medicine [address] [phone] Melvin Bello MD [address] [place] [address] [place] [address] Allergies Active Allergy Reactions Criticality Noted Date Comments Oxycodone Nausea/vomiting Medium 05/02/2014 documented as of this encounter (statuses as of 10/23/2023) Medications Medication Sig Dispensed Refills Start Date [...] as of this encounter (statuses as of 10/23/2023) Active Problems Problem Noted Date Diagnosed Date [...] as of this encounter (statuses as of 10/23/2023) Resolved Problems Problem Noted Date Diagnosed Date [...] 03/25/2004 9 Overview: Per Lipid Taxonomy. FX [id number] 01/16 BENIGN HYPERTENSION 03/22/20 09 Overview: Modified per HTN Taxonomy. Dyslipidemia, goal LDL below 160 09/19/2008 Contact dermatitis and other eczema due to other specified agent 03/27/2009 Impaired fasting glucose Vitamin D deficiency 018 Abnormal results of liver function studies 11/03/2011 Senile osteoporosis 05/03/20 13 Kidney disease, chronic, sta ge III (GFR 30-59 ml/min) 03/01/2019 documented as of this encounter (statuses as of 10/23/2023) Immunizations Name Administration Dates Next Due COVID-19 [...] Yes 01/06/2023 documented as of this encounter Progress Notes * Melvin Bello MD - 10/23/2023 12:58 AM EDT customer service sales consultant telephone encounter -paged for critical lab with low K+ Spoke to the pt -she denied any recent intake of lasix or other loop diuretics -she does take aldactone -denied any dizziness, palpitations, BISWAS Plan: I actually saw the pt yesterday afternoon in the clinic. She was asymptomatic and VSS Pt can not go to the ER until abt 8 am tomorrow since her daughter is going to drive her Considering pt is asymptomatic and recent vital were normal I think its appropriate to wait until tomorrow morning to go to the ER. Ill call again tomorrow morning. documented in this encounter Plan of Treatment Upcoming Encounters Date Type Department Care Team (Late st Contact Info) Description 12/02/2023 8:00 AM EDT Laboratory Laboratory [address] [place] [phone] [address] [place] [address] 12/31/2023 8:50 AM EDT Office Visit Family Medicine [address] [place] [phone] [address] [place] [address] 03/14/2024 2:40 PM EDT Office Visit Nephrology [address] [place] [address] Yanet Easley MD [address] [facility] [address] 03/16/2024 8:00 AM EDT Office Visit Cardiology [address] [place] [address] Yassine Rodriguez PA-C [address] [place] [address] Scheduled Procedures Name Priority Associated Diagnoses Date/Ti me COLONOSCOPY FLEXIBLE PROXIMAL DIAGNOSTIC Recall History of colon polyps Health Maintenance Due Date Last Done Comments Depression Screening 06/01/2023 06/01/2022 COVID-19 Vaccine ( season) 2023 05/28/2023, 05/28/2022, 11/18/2021, Additional history exists GFR 04/22/2024 10/22/2023, 07/2023, 03/17/2023, Additional history exists CKD HGB USE SMARTSET 71767 05/19/202405/19, 05/19/2023, 01/29/2023, Additional history exists Albumin/Creatinine Ratio 10/03/2024 024, 09/21/2022, 05/19/2022, Additional history exists CKD PHOS USE SMARTSET 95660 10/03/202409/15, 05/19/2023, 05/19/2022, Additional history exists DTaP,Tdap,and [...] this encounter Medical Devices Implanted Type Area Sales Communications Manager Device Identifier Shelf Expiration Date Model / Serial / Lot Lens Intraoc 24.5 - [id number] - [id number] Implanted:Qty: 1 on 03/25/2021 by Galen Chang MD at OR [facility] Left: Eye [employer]CH [employer] LOMB 12/14/2025 [id number] / [id number] / [id number] Lens Intraoc 24.0 - [id number] - [id number] Implanted:Qty: 1 on 04/01/2021 by Galen Chang MD at OR [facility] Right: Eye BAUSCH & LOMB 08/14/2024 [id number] / [id number] / [id number] documented as of this encounter Advance Directives Documents on File Type Date Recorded Patient Technical Services Librarian Expl anation Advance Directives and Living Will 10/06/2017 ADVANCE DIRECTIVE / LIVING WILL Power of Croze Machine Operator 10/06/2017 POWER OF A TTORNEY * Full [...] Discussed due to patient's condition Care Teams Director Of Dementia Operations Relationship Specialty Start Date End Date Rebeca Swift DO [address] [place] [address] [place] [phone] PCP - General Internal Medicine 01/08/17 documented as of this encounter
--- OUTSIDE RECORDS SUMMARY | 2023-10-23 17:33 | External Medical Summary | Summary of Care ---
Author Name Unknown Organization [facility] Address [address] [place] [address] Phone [phone] Care Team Providers Care Data Entry Representative Name Role Phone Rebeca Swift Primary Care Provider [phone] Reason for Visit * Reason Comments Acute Encounter Details Date Type Department Care Team (Late st Contact Info) Description 10/22/2023 9:00 AM EDT Office Visit Family Medicine [address] [phone] Melvin Bello MD [address] [place] [address] [place] [address] Abnormal urine*; Persistent proteinuria; Stage 3a chronic kidney disease (HCC) Allergies Active Allergy Reactions Criticality Noted Date [...] 03/25/2004 9 Overview: Per Lipid Taxonomy. FX [id number] 01/16 BENIGN HYPERTENSION 03/22/20 09 Overview: Modified [...] Date Smoking Tobacco: Never Smokeless Tobacco: Never Tobacco Cessation:Counseling Given: Not Answered Alcohol Use Standard Drinks/Week Comments Yes 0 [...] on file documented as of this encounter Last Filed Vital Signs Vital Sign Reading Time Taken Comments Blood Pressure 130/70 10/22/2023 8:54 AM EDT Pulse 85 10/22/2023 8:54 AM EDT Temperature 37.1 C (98.8 F) 10/22/2023 8:54 AM ED T Respiratory Rate - - Oxygen Saturation 98% 10/22/2023 8:54 AM EDT Inhaled Oxygen Concentration - - Weight 55.2 kg (121 lb 9.6 oz) 10/22/2023 8:54 A M EDT Height - - Body Mass Index 20.24 08/02/2023 1:56 PM EDT documented in this encounter Functional Status Functional Status Response [...] Progress Notes * Melvin Bello MD - 10/22/2023 9:10 AM EDT Subjective: HPI: Doris Pretty is a 82 year old female with hx of HLD, SVT, HTN, b/l carotid artery disease, CKD III, osteoporosis seen for Abnormal UA in the past - no symptoms - denied any gross hematuria, dysuria, urinary frequency or urgency - drinks a lot of water - US renal: Small bilateral renal cysts - no hx of kidney stone - hgb was normal on 05/2023 - not any AC Patient Active Problem List Diagnosis Osteoarthrosis involving multiple sites but not generalized Allergic rhinitis due to pollen Dyslipidemia, goal LDL below 70 Senile osteoporosis Essential hypertension with goal blood pressure less than 140/90 Hypertensive kidney disease with stage 3b chronic kidney disease Chronic kidney disease, stage 3b (HCC) Persistent proteinuria Mild carotid artery disease (HCC) SVT (supraventricular tachycardia) (HCC) Family history of kidney disease in brother Primary osteoarthritis of both knees PFO (patent foramen ovale) Liver cyst Current Outpatient Medications Medication Sig Dispense Refill ASPIRIN 81 MG PO TABS 1 TABLET DAILY 0 0 CALCIUM CITRATE-VITAMIN D 315-200 MG-UNIT PO TABS Take 1 Tablet by mouth. 0 0 VITAMIN C CR 1000 MG PO TBCR Take 500 mg by mouth every morning. 0 0 COQ10 200 MG PO CAPS one tablet daily 30 3 VITAMIN D3 2000 UNIT PO CAPS 1 CAPSULE DAILY 0 B COMPLEX PO TABS 1 tablet one day loratadine (CLARITIN) 10 MG Tablet Take 1 Tablet by mouth in the morning. As needed for allergies. vitamin e (AQUASOL E) 400 UNIT Capsule Take 1 Capsule by mouth in the morning. Glucosamine Sulfate 500 MG CAPS Take 1,000 mg by mouth in the morning and 1,000 mg before bedtime. Ferrous Sulfate 325 (65 Fe) MG Oral Tablet Delayed Release 1 Tablet. Rosuvastatin Calcium 40 MG Oral Tablet (Crestor) TAKE ONE TABLET BY MOUTH EVERY DAY 90 Tablet 3 Lisinopril 20 MG Oral Tablet (Prinivil) Take 2 Tablets by mouth in the morning. 180 Tablet 3 Spironolactone 25 MG Oral Tablet (Aldactone) TAKE 1 TABLET BY MOUTH EVERY MORNING 30 Tablet 5 Carvedilol 3.125 MG Oral Tablet (Coreg) TAKE ONE TABLET BY MOUTH IN THE MORNING AND IN THE EVENING WITH MEALS 180 Tablet 3 No current facility-administered medications for this visit. Past Medical History: Diagnosis Date Abnormal results of liver function studies 08/23 Closed fracture of sacrum and coccyx without spinal cord injury 1996 Contact dermatitis and other eczema due to other specified agent Dyslipidemia, goal LDL below 100 05/23/2009 Dyslipidemia, goal LDL below 160 Essential hypertension with goal blood pressure less than 140/90 05/27/2016 HTN, goal below 140/90 Hypertension goal BP (blood pressure) < 140/90 05/22/2014 Impaired fasting glucose 02/21 Kidney disease, chronic, stage III (GFR 30-59 ml/min) (HCC) Lateral epicondylitis 09/23/2004 Neuropathy 11/02/2012 Osteoarthrosis involving multiple sites but not generalized Prediabetes 10/28/2014 Senile osteoporosis 11/29/08 Subjective tinnitus 05/03/2013 Trigger finger Vitamin D deficiency 09/22 Past Surgical History: Procedure Laterality Date COLONOSCOPY, DIAGNOSTIC (RECTUM) 10/29/06 repeat in 5 years - Dr. Isidro COLONOSCOPY, DIAGNOSTIC (RECTUM) 12/01/11 mutiple colonic angioectasias - repeat in 5 years COLONOSCOPY, DIAGNOSTIC (RECTUM) 12/08/2017 normal, repeat 5 yrs/COLONOSCOPY FLEXIBLE PROXIMAL DIAGNOSTIC performed by Yaquelin Webber DO at ENDOSCOPY [facility] LAPAROSCOPY; CHOLECYSTECTOMY N/A 01/06/2023 LAPAROSCOPIC CHOLECYSTECTOMY performed by Pawel Patel MD at OR [facility] REMOVAL OF OVARY(S) 1992 Oopherectomy,Uni/Bilat REMOVE CATARACT, INSERT LENS PROSTH Left 03/25/2021 Left EXTRACAPSULAR CATARACT REMOVAL WITH INTRAOCULAR LENS performed by Galen Chang MD at [facility] REMOVE CATARACT, INSERT LENS PROSTH Right 04/01/2021 Right EXTRACAPSULAR CATARACT REMOVAL WITH INTRAOCULAR LENS performed by Galen Chang MD at [facility] TENDON SHEATH INCISION, FINGER 05/19/04 [employer] TOTAL HYSTERECTOMY 1992 fibroids WEDGE BIOPSY OF LIVER N/A 01/06/2023 LAPAROSCOPIC BIOPSY OF LIVER WEDGE performed by Pawel Patel MD at [facility] Review of patient's allergies indicates: Allergen Reactions Oxycodone Nausea/vomiting Family History Problem Relation Name Age of Onset Asthma Mother Other (pacemaker) Mother Cancer Father age 62, colon Other (pacemaker) Daughter Social History Tobacco Use Smoking status: Never Smokeless tobacco: Never Substance Use Topics Alcohol use: Yes Comment: very rare use Vaping/E-Cigarette Use Vaping/E-Cigarette Use Never User Vaping/E-Cigarette Substances Vaping/E-Cigarette Devices ROS: -Per HPI OBJECTIVE: BP 130/70 | Pulse 85 | Temp 37.1 C (98.8 F) (Tympanic) | Wt 55.2 kg (121 lb 9.6 oz) | SpO2 98% | BMI 20.24 kg/m | BSA 1.59 m PHYSICAL EXAM: Vitals are reviewed General:. NAD, well developed HEENT:. Normal Conjunctiva, EOMI Abd:. soft, ND, NT MSK:. Normal gait Psych:. AAOx3, normal affect ASSESSMENT/PLAN: Pt does not give clean catch - per pt she drinks enough water - will get Ucx and BMP - pt already on lisinopril for proteinuria Abnormal urine (Primary) - URINALYSIS, POINT OF CARE (ENTER/EDIT) - BASIC METABOLIC PANEL - CULTURE, URINE, QUANTITATIVE Persistent proteinuria - BASIC METABOLIC PANEL Stage 3a chronic kidney disease (HCC) - BASIC METABOLIC PANEL Melvin Bello MD Family medicine, [address] [address] documented in this encounter Nursing Notes * Claudia Bergeron LPN - 10/22/2023 8:53 AM EDT Chief Complaint Patient presents with Acute 10/04/23 Urine showed Large amt hematuria & bacteria Ordered by Nephrology. Advised to See PCP Denies UTI symptoms The patient has been properly identified by confirmation of name and date of . documented in this encounter Plan of Treatment Upcoming Encounters Date Type Department Care Team (Late st Contact Info) Description 12/02/2023 8:00 AM EDT Laboratory Laboratory [address] [place] [phone] [facility] Lab [address] [place] [address] 12/31/2023 8:50 AM EDT Office Visit Family Medicine [address] [phone] [address] [place] [address] 03/14/2024 2:40 PM EDT Office Visit Nephrology [address] [place] [address] Yanet Easley MD [address] [place], [place] [address] [address] 03/16/2024 8:00 AM EDT Office Visit Cardiology [address] [place] [address] Yassine Rodriguez PA-C [address] [place] [address] Pending Results Name Type Priority Associated Diagnoses Date /Time BASIC METABOLIC PANEL Lab Routine Abnormal urine Persistent proteinuria Stage 3a chronic kidney disease (HCC) 10/22/2023 9:31 AM EDT Scheduled Orders Name Type Priority Associated Diagnoses Orde r Schedule CULTURE, URINE, QUANTITATIVE Lab Routine Abnormal urine Ordered: 10/22/2023 Scheduled Procedures Name Priority Associated Diagnoses Date/Ti me COLONOSCOPY FLEXIBLE PROXIMAL DIAGNOSTIC Recall History of colon polyps Health Maintenance Due Date Last Done Comments Depression Screening 06/01/2023 06/01/2022 COVID-19 Vaccine ( season) 2023 05/28/2023, 05/28/2022, 11/18/2021, Additional history exists GFR 11/17/2023 05/19/2023, 11/0 05/2022, 03/04/2023, Additional history exists CKD HGB USE SMARTSET 84444 05/19/202405/19, 05/19/2023, 01/29/2023, Additional history exists Albumin/Creatinine Ratio 10/03/2024 024, 09/21/2022, 05/19/2022, Additional history exists CKD PHOS USE SMARTSET 47762 10/03/2024 05/2 , 05/19/2023, 05/19/2022, Additional history exists DTaP,Tdap,and [...] this encounter Medical Devices Implanted Type Area Residential Treatment Specialist Device Identifier Shelf Expiration Date Model / Serial / Lot Lens Intraoc 24.5 - [id number] - [id number] Implanted:Qty: 1 on 03/25/2021 by Galen Chang MD at OR [facility] Left: Eye [employer]CH [employer] LOMB 12/14/2025 [id number] / [id number] / [id number] Lens Intraoc 24.0 - [id number] - [id number] Implanted:Qty: 1 on 04/01/2021 by Galen Chang MD at OR [facility] Right: Eye BAUSCH & LOMB 08/14/2024 [id number] / [id number] / [id number] documented as of this encounter Procedures Procedure Name Priority Date/Time Associated Diagnosis Comments URINALYSIS, POINT OF CARE (ENTER/EDIT) Routine 10/22/2023 Abnormal urine documented in this encounter Results * URINALYSIS, POINT OF CARE (ENTER/EDIT) (10/22/2023) Color, Urine Yellow Yellow or Light Yellow Clarity, Urine Cloudy Clear Glucose, Urine Negative Negative mg/dL Bilirubin, Urine Negative Negative Ketone, Urine Negative Negative mg/dL Specific Tiline, Urine 1.020 1.003 - 1.030 Blood, Urine Moderate Negative pH, Urine 7.0 5.0 - 7.5 units Protein, Urine >=300 Negative mg/dL Urobilinogen, Urine 2.0 0.2 - 1.0 mg/dL Nitrite, Urine Negative Negative Esterase, Urine Large Negative Urine 10/22/2023 Melvin Bello MD LAB POINT OF CARE TEST ENTER/EDIT ORDERABLES documented in this encounter Visit Diagnoses Diagnosis Abnormal urine- Primary Other nonspecific finding on examination of urine Persistent proteinuria Proteinuria Stage 3a chronic kidney disease (HCC) documented in this encounter Advance Directives Documents on File Type Date Recorded Patient Production Designer Expl anation Advance Directives and Living Will 10/06/2017 ADVANCE DIRECTIVE / LIVING WILL Power of Pourer 10/06/2017 POWER OF A TTORNEY * Full [...] Discussed due to patient's condition Care Teams Data Entry Representative Relationship Specialty Start Date End Date Rebeca Swift DO [address] [place] [address] [place] [address] PCP - General Internal Medicine 01/08/17 documented as of this encounter"
--- OUTSIDE RECORDS SUMMARY | 2023-10-23 17:34 | External Medical Summary | Summary of Care ---
Author Name Unknown Organization [facility] Address [address] [place] [address] Phone [phone] Care Team Providers Care Light Rail Transit Operator Name Role Phone Rebeca Swift Primary Care Provider Reason for Visit * Reason Comments Outpatient Testing Encounter Details Date Type Department Care Team (Late st Contact Info) Description 10/04/2023 8:10 AM EDT Laboratory Laboratory [address] [place] [phone] [place] [address] [employer] Other*[id number]; Encounter for vitamin deficiency screening; Persistent proteinuria; Chronic kidney disease with symptom management only, stage 3 (moderate) ([facility]) Allergies Active Allergy Reactions Criticality Noted Date Comments Oxycodone Nausea/vomiting Medium 05/02/2014 documented as of this encounter (statuses as of 10/04/2023) Medications Medication Sig Dispensed Refills Start Date [...] as of this encounter (statuses as of 10/04/2023) Active Problems Problem Noted Date Diagnosed Date [...] as of this encounter (statuses as of 10/04/2023) Resolved Problems Problem Noted Date Diagnosed Date [...] 03/25/2004 9 Overview: Per Lipid Taxonomy. FX [id number] 01/16 BENIGN HYPERTENSION 03/22/20 09 Overview: Modified per HTN Taxonomy. Dyslipidemia, goal LDL below 160 09/19/2008 Contact dermatitis and other eczema due to other specified agent 03/27/2009 Impaired fasting glucose Vitamin D deficiency 018 Abnormal results of liver function studies 11/03/2011 Senile osteoporosis 05/03/20 13 Kidney disease, chronic, sta ge III (GFR 30-59 ml/min) 03/01/2019 documented as of this encounter (statuses as of 10/04/2023) Immunizations Name Administration Dates Next Due COVID-19 [...] Description 12/02/2023 8:00 AM EDT Laboratory Laboratory [address] [place] [phone] [address] [place] [address] 12/31/2023 8:50 AM EDT Office Visit Family Medicine [address] [place] [phone] Rebeca Swift[address] [place] [address] 03/14/2024 2:40 PM EDT Office Visit Nephrology [address] [place] [address] Yanet Easley MD [address] [place] [address] 03/16/2024 8:00 AM EDT Office Visit Cardiology [address] [place] [address] Yassine Rodriguez PA-C [address] [place] [address] Pending Results Name Type Priority Associated Diagnoses Date /Time MYCODE SUBSEQUENT ADULT Lab Routine [employer] Other*[id number] 10/04/2023 8:10 AM EDT FERRITIN Lab Routine Encounter for vitamin deficiency screening 10/04/2023 8:10 AM EDT IRON SCREEN, INCLUDING TIBC Lab Routine Encounter for vitamin deficiency screening 10/04/2023 8:10 AM EDT VITAMIN B12 Lab Routine Encounter for vitamin deficiency screening 10/04/2023 8:10 AM EDT 25-HYDROXY VITAMIN D Lab Routine Chronic kidney disease with symptom management only, stage 3 (moderate) (HCC) 10/04/2023 8:10 AM EDT PHOSPHORUS Lab Routine Chronic kidney disease with symptom management only, stage 3 (moderate) (HCC) 10/04/2023 8:10 AM EDT ALBUMIN / CREATININE RATIO, URINE Lab Routine Persistent proteinuria 10/04/2023 8:38 AM EDT MYCODE SST1 Lab Routine [employer] Other*[id number] 10/04/2023 8:10 AM EDT MYCODE SST2 Lab Routine [employer] Other*[id number] 10/04/2023 8:10 AM EDT Scheduled Procedures Name Priority Associated Diagnoses Date/Ti me COLONOSCOPY FLEXIBLE PROXIMAL DIAGNOSTIC Recall History of colon polyps Health Maintenance Due Date Last Done Comments Depression Screening 06/01/2023 06/01/2022 Albumin/Creatinine Ratio 09/22/2023 023, 05/19/2022, 10/28/2021, Additional history exists COVID-19 Vaccine ( season) 2023 05/28/2023, 05/28/2022, 11/18/2021, Additional history exists GFR 11/17/2023 05/19/2023, 1105/2022, 03/04/2023, Additional history exists CKD HGB USE SMARTSET 19392 05/19/202405/19, 05/19/2023, 01/29/2023, Additional history exists CKD PHOS USE SMARTSET 14416 05/19/202407/2023, 05/19/2022, 04/29/2021, Additional history exists DTaP,Tdap,and Td Vaccines (2 [...] this encounter Medical Devices Implanted Type Area Piece Marker Small Arms Device Identifier Shelf Expiration Date Model / Serial / Lot Lens Intraoc 24.5 - [id number] - [id number] Implanted:Qty: 1 on 03/25/2021 by Galen Chang MD at OR [facility] Left: Eye BAUSCH [employer] LOMB 12/14/2025 [id number] / [id number] / [id number] Lens Intraoc 24.0 - [id number] - [id number] Implanted:Qty: 1 on 04/01/2021 by Galen Chang MD at [facility] Right: Eye BAUSCH [employer] LOMB 08/14/2024 [id number] / [id number] / [id number] documented as of this encounter Visit Diagnoses Diagnosis [employer] Other*[id number] Encounter for vitamin deficiency screening Screening for other and unspecified endocrine, nutritional, metabolic, and immunity disorders Persistent proteinuria Proteinuria Chronic kidney disease with symptom management only, stage 3 (moderate) (HCC) documented in this encounter Advance Directives Documents on File Type Date Recorded Patient Collector Expl anation Advance Directives and Living Will 10/06/2017 ADVANCE DIRECTIVE / LIVING WILL Power of Glove Parts Inspector 10/06/2017 POWER OF A TTORNEY * Full [...] Discussed due to patient's condition Care Teams Light Rail Transit Operator Relationship Specialty Start Date End Date Rebeca Swift DO [address] [place] [address] [place] [address] PCP - General Internal Medicine 01/08/17 documented as of this encounter
--- OUTSIDE RECORDS SUMMARY | 2023-10-23 17:34 | External Medical Summary ---
Author Name Unknown Address Unknown Organization K01:LABORATORY [facility] [place] - [address] [facility] [address] Laboratory Report Ordering Provider Test Date Status NUVIA WHITE 10/04/2023 08:39:02 Final Observation Date Value Abnormality Reference (Units ) Status Color of Urine by Auto 10/04/2023 08:39:02 Yellow Colorless, Light Yellow, Yellow, Dark Yellow Final Clarity, Urine 10/04/2023 08:39:02 Cloudy Abnormal Clear Final Glucose [Mass/volume] in Urine by Automated test strip 10/04/2023 08:39:02 Negative Negative (mg/dL) Final Bilirubin.total [Presence] in Urine by Automated test strip 10/04/2023 08:39:02 Negative Negative Final Ketones [Mass/volume] in Urine by Automated test strip 10/04/2023 08:39:02 Negative Negative (mg/dL) Final Specific gravity, Urine 10/04/2023 08:39:02 1.014 1.003-1.030 Final Hemoglobin [Presence] in Urine by Automated test strip 10/04/2023 08:39:02 Moderate Abnormal Negative Final pH, Urine 10/04/2023 08:39:02 8.0 Above high normal 5.0-7.5 (Units) Final Protein [Mass/volume] in Urine by Automated test strip 10/04/2023 08:39:02 100 Abnormal Negative (mg/dL) Final Urobilinogen [Mass/volume] in Urine by Automated test strip 10/04/2023 08:39:02 Normal Normal (mg/dL) Final Nitrite [Presence] in Urine by Automated test strip 10/04/2023 08:39:02 Negative Negative Final Leukocyte esterase [Presence] in Urine by Automated test strip 10/04/2023 08:39:02 Large Abnormal Negative Final RBC, Urine 10/04/2023 08:39:02 10-19 Abnormal 0-2 (/HPF) Final WBC, Urine 10/04/2023 08:39:02 50+ Abnormal 0-2 (/HPF) Final Bacteria [#/area] in Urine sediment by Microscopy high power field 10/04/2023 08:39:02 151-200 Abnormal 0-25 (/HPF) Final Epithelial cells.squamous [#/area] in Urine sediment by Microscopy high power field 10/04/2023 08:39:02 Many Abnormal None (/HPF) Final Leukocyte clumps [#/area] in Urine sediment by Microscopy high power field 10/04/2023 08:39:02 Present Abnormal None (/HPF) Final Performing Location LABORATORY [facility] [place] - [address] [facility] [address]
--- OUTSIDE RECORDS SUMMARY | 2023-10-23 17:34 | External Medical Summary | Summary of Care ---
Author Name Unknown Organization [facility] Address [address] [place] [address] Phone [phone] Care Team Providers Care Toll Lineman Name Role Phone Rebeca Swift Primary Care Provider Reason for Visit * Reason Comments Outpatient Testing Encounter Details Date Type Department Care Team (Late st Contact Info) Description 10/04/2023 8:10 AM EDT Laboratory Laboratory [address] [place] [phone] [place] [address] [employer] Other*[id number]; Encounter for vitamin deficiency screening; Persistent proteinuria; Chronic kidney disease with symptom management only, stage 3 (moderate) ([facility]) Allergies Active Allergy Reactions Criticality Noted Date [...] 03/25/2004 9 Overview: Per Lipid Taxonomy. FX [id number] 01/16 BENIGN HYPERTENSION 03/22/20 09 Overview: Modified [...] Description 12/02/2023 8:00 AM EDT Laboratory Laboratory [address] [place] [phone] [address] [place] [address] 12/31/2023 8:50 AM EDT Office Visit Family Medicine [address] [phone] [place] Rebeca Dris[address]le[address] [place] [address] 03/14/2024 2:40 PM EDT Office Visit Nephrology [address] [place] [address] Yanet Easley MD [address] [place] [address] 03/16/2024 8:00 AM EDT Office Visit Cardiology [address] [place] [address] Yassine Rodriguez PA-C [address] [place] [address] Pending Results Name Type Priority Associated Diagnoses Date /Time MYCODE SUBSEQUENT ADULT Lab Routine [employer]Code [employer] Other*[id number] 10/04/2023 8:10 AM EDT FERRITIN Lab Routine [...] 3 (moderate) (HCC) 10/04/2023 8:10 AM EDT MYCODE SST1 Lab Routine [employer] Other*[id number] 10/04/2023 8:10 AM EDT MYCODE SST2 Lab Routine [employer] Other*[id number] 10/04/2023 8:10 AM EDT Scheduled Procedures Name Priority Associated Diagnoses Date/Ti me COLONOSCOPY FLEXIBLE PROXIMAL DIAGNOSTIC Recall History of colon polyps Health Maintenance Due Date Last Done Comments Depression Screening 06/01/2023 06/01/2022 Albumin/Creatinine Ratio 09/22/2023 023, 05/19/2022, 10/28/2021, Additional history exists COVID-19 Vaccine (2022- season) 2023 05/28/2023, 05/28/2022, 11/18/2021, Additional history exists GFR 11/17/2023 05/19/2023, 110 05/2022, 03/04/2023, Additional history exists CKD HGB USE SMARTSET 45366 05/19/202405/19, 05/19/2023, 01/29/2023, Additional history exists CKD PHOS USE SMARTSET 47004 05/19/202407/2023, 05/19/2022, 04/29/2021, Additional history exists DTaP,Tdap,and [...] this encounter Medical Devices Implanted Type Area Manager Solution Device Identifier Shelf Expiration Date Model / Serial / Lot Lens Intraoc 24.5 - [id number] - [id number] Implanted:Qty: 1 on 03/25/2021 by Galen Chang MD at [facility] Left: Eye BA[employer]CH [employer] LOMB 12/14/2025 [id number] / [id number] / [id number] Lens Intraoc 24.0 - [id number] - [id number] Implanted:Qty: 1 on 04/01/2021 by Galen Chang MD at OR [facility] Right: Eye BAUSCH & LOMB 08/14/2024 [id number] / [id number] / [id number] documented as of this encounter Visit Diagnoses Diagnosis [employer] Other*[id number] Encounter for vitamin deficiency screening Screening for other and unspecified endocrine, nutritional, metabolic, and immunity disorders Persistent proteinuria Proteinuria Chronic kidney disease with symptom management only, stage 3 (moderate) (HCC) documented in this encounter Advance Directives Documents on File Type Date Recorded Patient Director Funds Development Expl anation Advance Directives and Living Will 10/06/2017 ADVANCE DIRECTIVE / LIVING WILL Power of Boat Officer 10/06/2017 POWER OF A TTORNEY * Full [...] Discussed due to patient's condition Care Teams Toll Lineman Relationship Specialty Start Date End Date Rebeca Swift DO [address] [place] [address] [place] [address] PCP - General Internal Medicine 01/08/17 documented as of this encounter
--- OUTSIDE RECORDS SUMMARY | 2023-10-23 17:34 | External Medical Summary | Summary of Care ---
Author Name Unknown Organization [facility] Address [address] [place] [address] Phone [phone] Care Team Providers Care Thimble Press Operator Name Role Phone Rebeca Swift DO Primary Care Provider Reason for Visit * Reason Onset Date Comments Test Results 09/07/2023 Encounter Details Date Type Department Care Team (Late st Contact Info) Description 09/07/2023 Telephone Cardiology, [facility] [address] [facility] [place] [address] Yassine Rodriguez PA-C [address] [place] [address] Test Results Allergies Active Allergy Reactions Criticality Noted Date Comments Oxycodone Nausea/vomiting Medium 05/02/2014 documented as of this encounter (statuses as of 09/07/2023) Medications Medication Sig Dispensed Refills Start Date [...] COMPLEX PO TABS 1 tablet one day 0 A ctive loratadine (CLARITIN) 10 MG Tablet Take 1 Tablet by mouth in the morning. As needed for allergies. 0 09/19/2014 Active vitamin e (AQUASOL E) 400 UNIT Capsule Take 1 Capsule by mouth in the morning. 0 09/06/2018 Active Glucosamine Sulfate 500 MG CAPS Take 1,000 mg by mouth in the morning and 1,000 mg before bedtime. 0 Active Ferrous Sulfate 325 (65 Fe) MG Oral Tablet Delayed Release 1 Tablet. 0 11/30/2022 Active Rosuvastatin Calcium 40 MG Oral [...] as of this encounter (statuses as of 09/07/2023) Active Problems Problem Noted Date Diagnosed Date Liver cyst 01/06/2023 Family history of kidney disease in brother /0 09/2021 Overview: GPA Primary osteoarthritis of both [...] as of this encounter (statuses as of 09/07/2023) Resolved Problems Problem Noted Date Diagnosed Date [...] 03/25/2004 9 Overview: Per Lipid Taxonomy. FX [id number] 01/16 BENIGN HYPERTENSION 03/22/20 09 Overview: Modified per HTN Taxonomy. Dyslipidemia, goal LDL below 160 09/19/2008 Contact dermatitis and other eczema due to other specified agent 03/27/2009 Impaired fasting glucose Vitamin D deficiency 018 Abnormal results of liver function studies 11/03/2011 Senile osteoporosis 05/03/20 13 Kidney disease, chronic, sta ge III (GFR 30-59 ml/min) 03/01/2019 documented as of this encounter (statuses as of 09/07/2023) Immunizations Name Administration Dates Next Due COVID-19 [...] encounter Miscellaneous Notes * Telephone Encounter - Hope Lerma CMA - 09/07/2023 11:41 AM EDT My g sent. * Telephone Encounter - Hope Lerma CMA - 09/07/2023 11:40 AM EDT ----- Message from Yassine Rodriguez PA-C sent at 09/03/2023 4:50 PM EDT ----- Stable mild bilateral internal carotid artery disease. OK. documented in this encounter Plan of Treatment Upcoming Encounters Date Type Department Care Team (Late st Contact Info) Description 09/09/2023 8:00 AM EDT Office Visit Cardiology [address] [place] [address] Yassine Rodriguez PA-C [address] [place] [address] 10/04/2023 8:10 AM EDT Laboratory Laboratory [address] [place] [phone] [place] [address] 12/02/2023 8:00 AM EDT Laboratory Laboratory [address] [place] [phone] [address] [place] [address] 12/31/2023 8:50 AM EDT Office Visit Family Medicine [address] [place] [phone] Rebeca Swift[address] [place] [address] 03/14/2024 2:40 PM EDT Office Visit Nephrology [address] [place] [address] Yanet Easley MD [address] [facility] [place] [address] Scheduled Procedures Name Priority Associated Diagnoses Date/Ti me COLONOSCOPY FLEXIBLE PROXIMAL DIAGNOSTIC Recall History of colon polyps Health Maintenance Due Date Last Done Comments Depression Screening 06/01/2023 06/01/2022 Albumin/Creatinine Ratio 09/22/2023 05/08/2 023, 05/19/2022, 10/28/2021, Additional history exists GFR 11/17/2023 05/19/2023, 05/2022, 03/04/2023, Additional history exists CKD HGB USE SMARTSET 75649 05/19/202405/19, 05/19/2023, 01/29/2023, Additional history exists CKD PHOS USE SMARTSET 13279 05/19/202407/2023, 05/19/2022, 04/29/2021, Additional history exists DTaP,Tdap,and Td Vaccines (2 - Td or Tdap) 10/30/2029 10/31/2019, 02/16/2008 Pneumococcal Vaccine: 65+ Years Completed 05/23/2015, 02/16/2008 COLONOSCOPY-EVERY 5 YRS AGES 18-100 Discontinued 12/08/2017, 12/08/2017, 12/01/2011, Additional history exists Zoster Vaccines Completed 03/02/2020, 12/15, 10/31/2019, Additional history exists Influenza Vaccine (FLU shot) Completed 01/29/2023, 01/29/2023, 03/03/2022, Additional history exists COVID-19 Vaccine Completed 05/28/2023, 04/2023, 11/18/2021, Additional history exists GARDASIL-HPV IMMUNIZATION SERIES Aged Out No longer eligible based on patient's age to complete this topic Hepatitis B Aged Out No longer eligi ble based on patient's age to complete this topic MENINGOCOCCAL (MENACTRA/MENVEO) Aged Out No longer eligible based on patient's age to complete this topic documented as of this encounter Medical Devices Implanted Type Area Director Of Corporate Sponsorships Device Identifier Shelf Expiration Date Model / Serial / Lot Lens Intraoc 24.5 - [id number] - [id number] Implanted:Qty: 1 on 03/25/2021 by Galen Chang MD at [facility] Left: Eye [employer] 12/14/2025 [id number] / [id number] / [id number] Lens Intraoc 24.0 - [id number] - [id number] Implanted:Qty: 1 on 04/01/2021 by Galen Chang MD at [facility] Right: Eye [employer]OM[employer] 08/14/2024 [id number] / [id number] / [id number] documented as of this encounter Advance Directives Documents on File Type Date Recorded Patient Brick Offbearer Expl anation Advance Directives and Living Will 10/06/2017 ADVANCE DIRECTIVE / LIVING WILL Power of Community Sports Coordinator 10/06/2017 POWER OF A TTORNEY Latest Code Status on File Code Status Date Activated Date Inactivated Comments Full Code 01/06/2023 12:08 PM 01/07/2023 2:28 PM This order reflects the patients wishes and were consensually agreed upon. Question Answer Comments Discussion of Advance Directives occurred with: Not Discussed due to patient's condition Code Status History Code Status Date Activated Date Inactivated Comments Full Code 01/06/2023 8:33 AM 01/06/2023 12:08 PM Question Answer Comments Discussion of Advance Directives occurred with: Not Discussed due to patient's condition Care Teams Thimble Press Operator Relationship Specialty Start Date End Date Rebeca Swift DO [address] [place] [address] [place] [address] PCP - General Internal Medicine 01/08/17 documented as of this encounter
--- OUTSIDE RECORDS SUMMARY | 2023-10-23 17:34 | External Medical Summary ---
Author Name Unknown Address Unknown Organization [id number]:LAB[facility]ATORY [facility] - [address] [place] [address] Laboratory Report Ordering Provider Test Date Status BHUPINDER CRAWFORD 10/04/2023 08:10:59 Final Observation Date Value Abnormality Reference (Units ) Status MYCODE SPECIMEN-SST 10/04/2023 08:10:59 Freezing of extracted DNA, whole blood and/or serum. Final Performing Location LAB[facility]ATORY [facility] - [address] [facility] [address]
--- OUTSIDE RECORDS SUMMARY | 2023-10-23 17:34 | External Medical Summary ---
Author Name Unknown Address Unknown Organization [id number]:LABORATORY [facility] [place] - [address] [place] [address] Laboratory Report Ordering Provider Test Date Status SINGH KRAUS 10/04/2023 08:10:59 Final Observation Date Value Abnormality Reference (Units ) Status Iron 10/04/2023 08:10:59 82 33-151 (ug /dL) Final Iron-binding capacity 10/04/2023 08:10:59 260 250-425 (ug/dL) Final Transferrin Sat % 10/04/2023 08:10:59 32 15 -55 (%) Final Performing Location LABORATORY [facility] [place] - [address] [place] [address]
--- OUTSIDE RECORDS SUMMARY | 2023-10-23 17:34 | External Medical Summary ---
Author Name Unknown Address Unknown Organization K01:LABORATORY [facility] - [address] [place] [address] Laboratory Report Ordering Provider Test Date Status NUVIA WHITE 10/04/2023 08:10:59 Final Observation Date Value Abnormality Reference (Units ) Status Phosphate 10/04/2023 08:10:59 2.8 2.5-4.8 (m g/dL) Final Performing Location [facility] [address] [facility] [address]
--- OUTSIDE RECORDS SUMMARY | 2023-10-23 17:34 | External Medical Summary | Summary of Care ---
Author Name Unknown Organization [facility] Address [address] [place] [address] Phone [phone] Care Team Providers Care Crayon Grader Name Role Phone Rebeca Swift Primary Care Provider [phone] Reason for Visit * Reason Comments eRx-Medication Refill Encounter Details Date Type Department Care Team (Late st Contact Info) Description 08/10/2023 Refill Ne[address]rology [address] [place] [address] Nimisha Murillo MD [address] [place] [address] Allergies Active Allergy Reactions Criticality Noted Date Comments Oxycodone Nausea/vomiting Medium 05/02/2014 documented as of this encounter (statuses as of 08/10/2023) Medications Medication Sig Dispensed Refills Start Date End Date Status ASPIRIN 81 MG PO TABS 1 TABLET DAILY 0 0 02/16/2008 Active CALCIUM CITRATE-VITAMIN D 315-200 MG-UNIT PO TABS Take 1 Tablet by mouth. 0 0 09/19/2008 Active VITAMIN C CR 1000 MG PO TBCR Take 500 mg by mouth every morning. 0 0 09/19/2008 Active COQ10 200 MG PO CAPSIndications:Dy slipidemia, goal LDL below 130 one tablet daily 30 3 05/16/2009 Active VITAMIN D3 2000 UNIT PO CAPSIndications:Vi tamin D deficiency 1 CAPSULE DAILY 0 10/02/2009 Active B COMPLEX PO TABS 1 tablet one day 0 Active loratadine (CLARITIN) 10 MG Tablet Take 1 [...] Active Rosuvastatin Calcium 40 MG Oral Tablet (Crestor)Indicatio ns:Dyslipidemia, goal LDL below 70 TAKE ONE TABLET BY MOUTH EVERY DAY 90 Tablet 3 02/08/2023 Active Carvedilol 3.125 MG Oral Tablet (Coreg)Indications :Hypertensive kidney disease with stage 3 chronic kidney disease, unspecified whether stage 3a or 3b CKD (HCC),Hypertension , uncontrolled Take 1 Tablet by mouth 2 times a day with morning and evening meals. 60 Tablet 5 03/04/2023 Active Lisinopril 20 MG Oral Tablet (Prinivil)Indicati ons:Hypertensive kidney disease with stage 3b chronic kidney disease (HCC) Take 2 Tablets by mouth in the morning. 180 Tablet 3 03/18/2023 Active Spironolactone 25 MG Oral Tablet (Aldactone) TAKE 1 TABLET BY MOUTH EVERY MORNING 30 Tablet 5 08/10/2023 Active Spironolactone 25 MG Oral Tablet (Aldactone) Take 1 Tablet by mouth in the morning. 30 Tablet 5 02/19/2023 Discontinued documented as of this encounter (statuses as of 08/10/2023) Active Problems Problem Noted Date Diagnosed Date [...] as of this encounter (statuses as of 08/10/2023) Resolved Problems Problem Noted Date Diagnosed Date [...] 03/25/2004 9 Overview: Per Lipid Taxonomy. FX [id number] 01/16 BENIGN HYPERTENSION 03/22/20 09 Overview: Modified per HTN Taxonomy. Dyslipidemia, goal LDL below 160 09/19/2008 Contact dermatitis and other eczema due to other specified agent 03/27/2009 Impaired fasting glucose Vitamin D deficiency 018 Abnormal results of liver function studies 11/03/2011 Senile osteoporosis 05/03/20 13 Kidney disease, chronic, sta ge III (GFR 30-59 ml/min) 03/01/2019 documented as of this encounter (statuses as of 08/10/2023) Immunizations Name Administration Dates Next Due COVID-19 [...] encounter Miscellaneous Notes * Telephone Encounter - Nimisha Murillo MD - 08/10/2023 4:11 PM EDTSigned Prescriptions: Disp Refills Spironolactone 25 MG Oral Tablet (Aldacton*30 Tab*5 Sig: TAKE 1 TABLET BY MOUTH EVERY MORNING Authorizing Provider: NIMISHA MURILLO * Telephone Encounter - Clarisse Calhoun RN - 08/10/2023 8:10 AM EDTPending Prescriptions: Disp Refills Spironolactone 25 MG Oral Tablet (Aldacton*30 Tab*5 Sig: TAKE 1 TABLET BY MOUTH EVERY MORNING * Telephone Encounter - Clarisse Calhoun RN - 08/10/2023 8:07 AM EDT Prescription request received from pharmacy pending. Please authorize. Last OV 08/02/23 Next OV 03/14/24 documented in this encounter Plan of Treatment Upcoming Encounters Date Type Department Care Team (Late st Contact Info) Description 09/03/2023 8:30 AM EDT Imaging Radiology [address] [place] [address] 09/09/2023 8:00 AM EDT Office Visit Cardiology [address] [place] [address] Yassine Rodriguez PA-C [address] [place] [address] 10/04/2023 8:10 AM EDT Laboratory Laboratory [address] [place] [phone] [facility] [address] [place] [address] 12/02/2023 8:00 AM EDT Laboratory Laboratory [address] [place] [phone] [place], [address] [place] [address] 12/31/2023 8:50 AM EDT Office Visit Family Medicine [address] [place] [phone] Rebeca Swift, [address] [place] [address] 03/14/2024 2:40 PM EDT Office Visit Nephrology [address] [place] [address] Nimisha Murillo MD [address] [facility] [address] Scheduled Procedures Name Priority Associated Diagnoses Date/Ti me COLONOSCOPY FLEXIBLE PROXIMAL DIAGNOSTIC Recall History of colon polyps Health Maintenance Due Date Last Done Comments Depression Screening 06/01/2023 06/01/2022 Albumin/Creatinine Ratio 09/22/2023 023, 05/19/2022, 10/28/2021, Additional history exists GFR 11/17/2023 05/19/2023, 11/0 05/2022, 03/04/2023, Additional history exists CKD HGB USE SMARTSET 65490 05/19/202405/19, 05/19/2023, 01/29/2023, Additional history exists CKD PHOS USE SMARTSET 21965 05/19/[address]240 07/2023, 05/19/2022, 04/29/2021, Additional history exists DTaP,Tdap,and Td [...] this encounter Medical Devices Implanted Type Area Feedlot Manager Device Identifier Shelf Expiration Date Model / Serial / Lot Lens Intraoc 24.5 - [id number] - [id number] Implanted:Qty: 1 on 03/25/2021 by Galen Chang MD at [facility] Left: Eye [employer]OM[employer] 12/14/2025 [id number] / [id number] / [id number] Lens Intraoc 24.0 - [id number] - [id number] Implanted:Qty: 1 on 04/01/2021 by Galen Chang MD at [facility] Right: Eye [employer]CH [employer] LOMB 08/14/2024 [id number] / [id number] / [id number] documented as of this encounter Advance Directives Documents on File Type Date Recorded Patient Pneumatic Jacketer Expl anation Advance Directives and Living Will 10/06/2017 ADVANCE DIRECTIVE / LIVING WILL Power of Grading Supervisor 10/06/2017 POWER OF A TTORNEY Latest Code [...] Discussed due to patient's condition Care Teams Crayon Grader Relationship Specialty Start Date End Date Rebeca Swift DO [address] [place] [address] [place] [id number] PCP - General Internal Medicine 01/08/17 documented as of this encounter
--- OUTSIDE RECORDS SUMMARY | 2023-10-23 17:34 | External Medical Summary ---
Author Name Unknown Address Unknown Organization K01:LABORATORY [facility] - [address] [place] [address] Laboratory Report Ordering Provider Test Date Status BHUPINDER CRAWFORD 10/04/2023 08:10:59 Final Observation Date Value Abnormality Reference (Units ) Status MYCODE SPECIMEN-SST 10/04/2023 08:10:59 Freezing of extracted DNA, whole blood and/or serum. Final Performing Location LAB[facility]ATORY [facility] - [address] [facility] [address]
--- OUTSIDE RECORDS SUMMARY | 2023-10-23 17:34 | External Medical Summary | Summary of Care ---
Author Name Unknown Organization [facility] Address [address] [place] [address] Phone [phone] Care Team Providers Care Induction Furnace Operator Name Role Phone Rebeca Swift Primary Care Provider [phone] Reason for Visit * Reason Comments Re-Check Encounter Details Date Type Department Care Team (Late st Contact Info) Description 08/02/2023 2:00 PM EDT Office Visit Nephrology [address] [place] [address] ZeValerie garcia PA-C [address] [place] [address] Chronic kidney disease with symptom management only, stage 3 (moderate) ([facility])*; HTN, goal below 130/80; Persistent proteinuria Allergies Active Allergy Reactions Criticality Noted Date Comments Oxycodone Nausea/vomiting Medium 05/02/2014 documented as of this encounter (statuses as of 08/02/2023) Medications Medication Sig Dispensed Refills Start Date [...] EVERY DAY 90 Tablet 3 02/08/2023 Active Spironolactone 25 MG Oral Tablet (Aldactone) Take 1 Tablet by mouth in the morning. 30 Tablet 5 02/19/2023 Active Carvedilol 3.125 MG Oral Tablet (Coreg)Indications:Hy pertensive kidney disease with stage 3 chronic kidney disease, unspecified whether stage 3a or 3b CKD (HCC),Hypertension, uncontrolled Take 1 Tablet by mouth 2 times a day with morning and evening meals. 60 Tablet 5 03/04/2023 Active Lisinopril 20 MG Oral Tablet (Prinivil)Indications :Hypertensive kidney disease with stage 3b chronic kidney disease (HCC) Take 2 Tablets by mouth in the morning. 180 Tablet 3 03/18/2023 Active documented as of this encounter (statuses as of 08/02/2023) Active Problems Problem Noted Date Diagnosed Date [...] as of this encounter (statuses as of 08/02/2023) Resolved Problems Problem Noted Date Diagnosed Date [...] 03/25/2004 9 Overview: Per Lipid Taxonomy. FX [id number] 01/16 BENIGN HYPERTENSION 03/22/20 09 Overview: Modified per HTN Taxonomy. Dyslipidemia, goal LDL below 160 09/19/2008 Contact dermatitis and other eczema due to other specified agent 03/27/2009 Impaired fasting glucose Vitamin D deficiency 018 Abnormal results of liver function studies 11/03/2011 Senile osteoporosis 05/03/20 13 Kidney disease, chronic, sta ge III (GFR 30-59 ml/min) 03/01/2019 documented as of this encounter (statuses as of 08/02/2023) Immunizations Name Administration Dates Next Due COVID-19 [...] Sign Reading Time Taken Comments Blood Pressure 130/68 08/02/2023 2:26 PM EDT Pulse 68 08/02/2023 1:56 PM EDT Temperature - - Respiratory Rate 16 08/02/2023 1:56 PM EDT Oxygen Saturation - - Inhaled Oxygen Concentration - - Weight 55.8 kg (123 lb) 08/02/2023 1:56 PM EDT Height 165.1 cm (5' 5") 08/02/2023 1:56 PM EDT Body Mass Index 20.47 08/02/2023 1:56 PM EDT documented in this [...] as of this encounter Progress Notes * Valerie Valdivia PA-C - 08/02/2023 2:00 PM EDT NEPHROLOGY CLINIC NOTE Nephrology [address] [place] [address] Patient Name: Doris Pretty Patient Active Problem List Diagnosis Code Osteoarthrosis involving multiple sites but not generalized M89.49 Allergic rhinitis due to pollen J30.1 Dyslipidemia, goal LDL below 70 E78.5 Senile osteoporosis M81.0 Essential hypertension with goal blood pressure less than 140/90 I10 Hypertensive kidney disease with stage 3b chronic kidney disease I12.9, N18.32 Chronic kidney disease, stage 3b (HCC) N18.32 Persistent proteinuria R80.1 Mild carotid artery disease (HCC) I77.9 SVT (supraventricular tachycardia) I47.10 Family history of kidney disease in brother Z84.1 Primary osteoarthritis of both knees M17.0 PFO (patent foramen ovale) Q21.12 Liver cyst K76.89 BACKGROUND: 82 year old female presents for f/u of >1 gm protienuric CKD3B attributed to hypertension and advancing age . Past Medical history includes Hypertension since 1996 and without history of urgency, osteoarthritis, impaired fasting glucose, BL carotid artery disease. Baseline creatinine in 2019 1.1-1.2. Noted to have creatinine 1.4 at April 2019 lab check. Then October 2019, creatinine up to 1.8, 2.0 on recheck in November. On stable lisinopril dose since 2018. Had been on stable 10 mg daily dose for years prior to this. Triamterene hydrochlorothiazide dose had been stable since at least 2010; but was stopped. No hx of intolerance to bp meds. February 2019 fell and broke knee cap L > no ER or hospital visits; managed at [facility] Follows w/ cardiology for PFO, mild BL ICA disease; note no hx of coronary artery disease or heart failure. GB removal at [facility] 12/2022 Cont to live independently and do ADLs; lawn care, Housework. Grandson mows; pt does a bit of gardening but struggles to get up/down Likes to sew. Reads. Patty . Tells me she plans to live to age 89. Drinks at least :50+ oz of fluids Home blood pressure checks: Yes mailed cuff checks twice daily NSAID use: Years ago heavy alleve use; none since Herbals/supplements: Vit c, vit d, Vit e, coq10, Super b complex, glucosamine, iron History of stones: No Family history of CKD or ESRD: no apart from 2 daughter with stones an. Brother dx with GPA granlumotosis with pliantosis he is on "chemo" for it. He is planning to move back from [place] to [facility] sometime soon. Patient reports drinking 42 oz of water daily. Today 08/02/23 Denies any recent hospitalizations, procedures or infections. Continues to follow with [facility] for [facility] - reports bp today higher due running errands and running late. Reports feeling good not liking the weather currently and struggles with drinking fluids with cold weather REVIEW OF SYSTEMS General: No fatigue, Respiratory: No wheezing, No shortness of breath Cardiovascular:No chest pain, No palpitations, and No syncope, No falls Gastrointestinal: No nausea, vomiting, diarrhea No blood in stools Urinary: No dysuira, No hematuria. No flank pain Musculoskeletal:No edema Skin: No itching All other systems were reviewed and were negative. Current Outpatient Medications Medication Sig Dispense Refill [...] BY MOUTH EVERY DAY 90 Tablet 3 Spironolactone 25 MG Oral Tablet (Aldactone) Take 1 Tablet by mouth in the morning. 30 Tablet 5 Carvedilol 3.125 MG Oral Tablet (Coreg) Take 1 Tablet by mouth 2 times a day with morning and evening meals. 60 Tablet 5 Lisinopril 20 MG Oral Tablet (Prinivil) Take 2 Tablets by mouth in the morning. 180 Tablet 3 No current facility-administered medications for this visit. PHYSICAL EXAMINATION Last 4 BP Readings: BP Readings from Last 4 Encounters: 08/02/23 164/70 05/28/23 136/78 03/23/23 110/62 03/19/23 145/79 Last 3 Weights: Wt Readings from Last 3 Encounters: 08/02/23 55.8 kg (123 lb) 05/28/23 56 kg (123 lb 6.4 oz) 03/23/23 54.6 kg (120 lb 6.4 oz) BP 164/70 | Pulse 68 | Resp 16 | Ht 1.651 m (5' 5") | Wt 55.8 kg (123 lb) | BMI 20.47 kg/m | BSA 1.6 m Wt Readings from Last 1 Encounters: 08/02/23 55.8 kg (123 lb) General appearance: alert, no apparent distress. Ambulatory without assistance HEAD: Normocephalic, No masses, lesions, tenderness Respiratory: clear to auscultation, no rhonchi, no wheezes, and no crackles Heart: regular rate and regular rhythm Abdomen: abdomen soft, non-tender, and no CVA tenderness EXTREMITIES: No edema, No cyanosis or clubbing Skin: skin color, texture, turgor are normal NEURO: alert & oriented x 3 with fluent speech, no focal motor/sensory deficits No tremor Patient is a reliable historian of events LABS: Latest Reference Range & Units 12/09/22 08:00 01/07/23 03:40 01/29/23 10:11 03/04/23 09:13 03/17/23 08:20 05/19/23 08:39 Sodium 135 - 146 mmol/L 143 139 143 143 144 143 Potassium 3.5 - 5.1 mmol/L 4.0 4.2 3.9 4.9 4.2 3.6 Chloride 98 - 107 mmol/L 105 104 104 106 105 103 CO2 22 - 32 mmol/L 27 22 28 25 28 28 BUN 6 - 20 mg/dL 19 21 (H) 20 23 (H) 20 19 Creatinine 0.5 - 1.0 mg/dL 1.3 (H) 1.2 (H) 1.1 (H) 1.2 (H) 1.3 (H) 1.2 (H) Estimated Glomerular Filtration Rate >=60 mL/min 41 (L) 46 (L) 49 (L) 47 (L) 43 (L) 44 (L) Anion Gap 7 - 15 mmol/L 11 13 11 12 11 12 Glucose 70 - 120 mg/dL 99 121 (H) 105 98 100 110 Calcium 8.4 - 10.2 mg/dL 10.2 9.3 9.9 10.9 (H) 10.3 (H) 9.8 (H): Data is abnormally high (L): Data is abnormally low Latest Reference Range & Units 11/19/20 08:28 04/29/21 08:02 10/28/21 08:43 05/19/22 08:36 09/21/22 08:27 Albumin / Creatinine Ratio, Urine <30 mg/g Creat 239 (H) 208 (H) 263 (H) 217 (H) Protein/ Creatinine Ratio, Urine <150 mg/g 933 (H) 778 (H) 1,198 (H) (H): Data is abnormally high IMAGING: EXAM 11/23/2019 3:34 pmUS RENAL HISTORY decreased renal function TECHNIQUE Cine and static sonographic images were obtained. COMPARISON Prior ultrasound March 24, 2018 FINDINGS Right Kidney: Normal size and echotexture. The right kidney measures 9.1 cmx3.6 cmx4.2 cm. No significant collecting system dilatation or stones evident. Superior pole cyst measures 16 x 12 x 16 mm. Additional superior pole cyst measures 9 x 7 x 8 mm. Vascular calcifications noted. Left Kidney: Normal size and echotexture. The left kidney measures 9.7 cmx4.0 cmx4.5 cm. No significant collecting system dilatation or stones evident. Vascular calcifications noted. Small inferior pole cyst measures 30 x 19 x 21 mm Bladder: Unremarkable for degree of distension Aorta/IVC: Visualized portions normal in caliber. IMPRESSION IMPRESSION Small bilateral renal cysts. ASSESSMENT/PLAN: The patient's most recent labs (from 2 months ago) were reviewed and the assessment/plan is as follows: Stable CKD IIIb with low 200 mg albuminuria. Chemistries stable hx of potassium supplement use but has since been discontinued. Chronic kidney disease with symptom management only, stage 3 (moderate) (HCC) (Primary) - 25-HYDROXY VITAMIN D; Future; Expected date: 09/15/2023 - PHOSPHORUS; Future; Expected date: 09/15/2023 - BASIC METABOLIC PANEL; Future; Expected date: 10/16/2023 HTN, goal below 130/80 Cont with [facility] No changes to medications -spironolactone, lisinopril and Coreg current doses -update labs as below - BASIC METABOLIC PANEL; Future; Expected date: 10/16/2023 Persistent proteinuria - URINALYSIS WITH MICROSCOPIC EXAM; Future; Expected date: 09/15/2023 - ALBUMIN / CREATININE RATIO, URINE; Future; Expected date: 09/15/2023 Labs placed for assessment in September and November No changes to medications Stable renal cyst noted on imaging no further evaluation at this time Bp cuff for validation with NV or next appt Avoid medicines like aleve, advil, ibuprofen, aspirin more than 81 mg daily and other NSAIDS which are not good for kidney patients. Take only tylenol (acetaminophen) up to 2000 mg daily as needed for pain or as directed by your primary care provider. Reviewed previous status of kidney function and goals of care. All questions were answered. Check-out note: [facility] [facility] Labs in November Valerie Valdivia PA-C Nephrology [address] [place] [address] * Sienna Dubon RN - 08/02/2023 1:56 PM EDT 3 mo check up BP 164/70, pt states she was rushing around a lot today. Pt states at home this morning, top number was 110/ documented in this encounter Plan of Treatment Upcoming Encounters Date Type Department Care Team (Late st Contact Info) Description 09/03/2023 8:30 AM EDT Imaging Radiology [address] [place] [address] 09/09/2023 8:00 AM EDT Office Visit Cardiology [address] [place] [address] Yassine Rodriguez PA-C [address] [place] [address] 10/04/2023 8:10 AM EDT Laboratory Laboratory [address] [place] [phone] [place] [address] 12/02/2023 8:00 AM EDT Laboratory Laboratory [address] [place] [phone] [place] [address] 12/31/2023 8:50 AM EDT Office Visit Family Medicine [address] [place] [phone] Rebeca [address] [place] [address] 03/14/2024 2:40 PM EDT Office Visit Nephrology [address] [place] [address] Yanet Easley MD [address] [facility] [place] [address] Scheduled Orders Name Type Priority Associated Diagnoses Orde r Schedule URINALYSIS WITH MICROSCOPIC EXAM Lab Routine Persistent proteinuria Expected: 09/15/2023, Expires: 08/01/2024 25-HYDROXY VITAMIN D Lab Routine Chronic kidney disease with symptom management only, stage 3 (moderate) (HCC) Expected: 09/15/2023, Expires: 08/01/2024 PHOSPHORUS Lab Routine Chronic kidney disease with symptom management only, stage 3 (moderate) (HCC) Expected: 09/15/2023, Expires: 08/01/2024 ALBUMIN / CREATININE RATIO, URINE Lab Routine Persistent proteinuria Expected: 09/15/2023, Expires: 08/01/2024 BASIC METABOLIC PANEL Lab Routine Chronic kidney disease with symptom management only, stage 3 (moderate) (HCC) HTN, goal below 130/80 Expected: 10/16/2023, Expires: 08/01/2024 Scheduled Procedures Name Priority Associated Diagnoses Date/Ti me COLONOSCOPY FLEXIBLE PROXIMAL DIAGNOSTIC Recall History of colon polyps Health Maintenance Due Date Last Done Comments Depression Screening 06/01/2023 06/01/2022 Albumin/Creatinine Ratio 09/22/2023 023, 05/19/2022, 10/28/2021, Additional history exists GFR 11/17/2023 05/19/2023, 1105/2022, 03/04/2023, Additional history exists CKD HGB USE SMARTSET 26984 05/19/202405/19, 05/19/2023, 01/29/2023, Additional history exists CKD PHOS USE SMARTSET 66035 05/19/202407/2023, 05/19/2022, 04/29/2021, Additional history exists DTaP,Tdap,and [...] this encounter Medical Devices Implanted Type Area Applications Developer Device Identifier Shelf Expiration Date Model / Serial / Lot Lens Intraoc 24.5 - [id number] - [id number] Implanted:Qty: 1 on 03/25/2021 by Glaen Chang MD at OR [facility] Left: Eye [employer]OM[employer] 12/14/2025 [id number] / [id number] / [id number] Lens Intraoc 24.0 - [id number] - [id number] Implanted:Qty: 1 on 04/01/2021 by Galen Chang MD at OR [facility] Right: Eye BAUSCH [employer] LOMB 08/14/2024 [id number] / [id number] / [id number] documented as of this encounter Visit Diagnoses Diagnosis Chronic kidney disease with symptom management only, stage 3 (moderate) (HCC)- Primary HTN, goal below 130/80 Unspecified essential hypertension Persistent proteinuria Proteinuria documented in this encounter Advance Directives Documents on File Type Date Recorded Patient Sprayer Operator Expl anation Advance Directives and Living Will 10/06/2017 ADVANCE DIRECTIVE / LIVING WILL Power of Senior Javascript Developer 10/06/2017 POWER OF A TTORNEY Latest Code [...] Discussed due to patient's condition Care Teams Induction Furnace Operator Relationship Specialty Start Date End Date Rebeca Swift DO [address] [place] [address] [place] [address] PCP - General Internal Medicine 01/08/17 documented as of this encounter
--- OUTSIDE RECORDS SUMMARY | 2023-10-23 17:34 | External Medical Summary | Summary of Care ---
Author Name Unknown Organization [facility] Address [address] [place] [address] Phone [phone] Care Team Providers Care Sales Representative Livestock Name Role Phone Rebeca Swift Primary Care Provider Reason for Visit * Reason Comments Outpatient Testing Encounter Details Date Type Department Care Team (Late st Contact Info) Description 10/04/2023 8:10 AM EDT Laboratory Laboratory [address] [place] [phone] [place] [address] [employer] Other*[id number]; Encounter for vitamin deficiency screening; Persistent proteinuria; Chronic kidney disease with symptom management only, stage 3 (moderate) ([facility]) Allergies Active Allergy Reactions Criticality Noted [...] 03/25/2004 9 Overview: Per Lipid Taxonomy. FX [id number] 01/16 BENIGN HYPERTENSION 03/22/20 09 Overview: Modified [...] 12/02/2023 8:00 AM EDT Laboratory Laboratory [address] [place] [phone] [address] [place] [address] 12/31/2023 8:50 AM EDT Office Visit Family Medicine [address] [phone] [place] Rebeca [address] [place] [address] 03/14/2024 2:40 PM EDT Office Visit Nephrology [address] [place] [address] Yanet Easley MD [address] [place] [address] 03/16/2024 8:00 AM EDT Office Visit Cardiology [address] [place] [address] Yassine Rodriguez PA-C [address] [place] [address] Pending Results Name Type Priority Associated Diagnoses Date /Time MYCODE SUBSEQUENT ADULT Lab Routine MyCode Research Other*[id number] 10/04/2023 8:10 AM EDT FERRITIN Lab Routine Encounter for vitamin deficiency screening 10/04/2023 8:10 AM EDT IRON SCREEN, INCLUDING TIBC Lab Routine Encounter for vitamin deficiency screening 10/04/2023 8:10 AM EDT VITAMIN B12 Lab Routine Encounter for vitamin deficiency screening 10/04/2023 8:10 AM EDT URINALYSIS WITH MICROSCOPIC EXAM Lab Routine Persistent proteinuria 10/04/2023 8:10 AM EDT 25-HYDROXY VITAMIN D Lab Routine Chronic kidney disease with symptom management only, stage 3 (moderate) (HCC) 10/04/2023 8:10 AM EDT PHOSPHORUS Lab Routine Chronic kidney disease with symptom management only, stage 3 (moderate) (HCC) 10/04/2023 8:10 AM EDT ALBUMIN / CREATININE RATIO, URINE Lab Routine Persistent proteinuria 10/04/2023 8:10 AM EDT MYCODE SST1 Lab Routine My[employer] Research Other*[id number] 10/04/2023 8:10 AM EDT MYCODE SST2 Lab Routine [employer] Other*[id number] 10/04/2023 8:10 AM EDT Scheduled Procedures Name Priority Associated Diagnoses Date/Ti me COLONOSCOPY FLEXIBLE PROXIMAL DIAGNOSTIC Recall History of colon polyps Health Maintenance Due Date Last Done Comments Depression Screening 06/01/2023 06/01/2022 Albumin/Creatinine Ratio 09/22/2023 023, 05/19/2022, 10/28/2021, Additional history exists COVID-19 Vaccine ( season) 2023 05/28/2023, 05/28/2022, 11/18/2021, Additional history exists GFR 11/17/2023 05/19/2023, 05/2022, 03/04/2023, Additional history exists CKD HGB USE SMARTSET 01985 05/19/202405/19, 05/19/2023, 01/29/2023, Additional history exists CKD PHOS USE SMARTSET 11102 05/19/202407/2023, 05/19/2022, 04/29/2021, Additional history exists DTaP,Tdap,and [...] this encounter Medical Devices Implanted Type Area Instrument Processing Tech Device Identifier Shelf Expiration Date Model / Serial / Lot Lens Intraoc 24.5 - [id number] - [id number] Implanted:Qty: 1 on 03/25/2021 by Galen Chang MD at OR [facility] Left: Eye [employer]CH [employer]OMB 12/14/2025 [id number] / [id number] / [id number] Lens Intraoc 24.0 - [id number] - [id number] Implanted:Qty: 1 on 04/01/2021 by Galen Chang MD at [facility] Right: Eye BA[employer]CH [employer] LOMB 08/14/2024 [id number] / [id number] / [id number] documented as of this encounter Visit Diagnoses Diagnosis MyCode Research Other*[id number] Encounter for vitamin deficiency screening Screening for other and unspecified endocrine, nutritional, metabolic, and immunity disorders Persistent proteinuria Proteinuria Chronic kidney disease with symptom management only, stage 3 (moderate) (HCC) documented in this encounter Advance Directives Documents on File Type Date Recorded Patient Cake Icer Expl anation Advance Directives and Living Will 10/06/2017 ADVANCE DIRECTIVE / LIVING WILL Power of Dairy Worker 10/06/2017 POWER OF A TTORNEY * Full [...] due to patient's condition Care Teams Sales Representative Livestock Relationship Specialty Start Date End Date Rebeca Swift DO [address] [place] [address] [place] [address] PCP - General Internal Medicine 01/08/17 documented as of this encounter
--- OUTSIDE RECORDS SUMMARY | 2023-10-23 17:34 | External Medical Summary ---
Author Name Unknown Address Unknown Organization [id number][place] [place] [address] [facility] [address] Laboratory Report Ordering Provider Test Date Status SINGH KRAUS 10/04/2023 08:10:59 Final Observation Date Value Abnormality Reference (Units ) Status Ferritin 10/04/2023 08:10:59 598 Above high normal 13 -150 (ng/mL) Final Postmenopausal women have hi gher ferritin levels than pre-menopausal women. The above reference interval is based on pre-menopausal women. Performing Location [facility] [address] [facility] [address]
--- OUTSIDE RECORDS SUMMARY | 2023-10-23 17:34 | External Medical Summary ---
Author Name Unknown Address Unknown Organization [id number][place] [place] [address] [place] [address] Laboratory Report Ordering Provider Test Date Status NUVIA WHITE 10/04/2023 08:10:59 Final Deficient: <20 ng/mL
Ins ufficient: 20-29 ng/mL
Recommended/Optimum:30-50 ng/mL

Vitamin D intoxication is rare. If suspicious of Vitamin D toxicity, evaluation of serum Calcium and PTH is recommended. Observation Date Value Abnormality Reference (Units ) Status 25-OH Vitamin D total 10/04/2023 08:10:59 83 >19 (ng/mL) Final Performing Location [facility] [place] [address] [place] [address]
--- OUTSIDE RECORDS SUMMARY | 2023-10-23 17:34 | External Medical Summary | Summary of Care ---
Author Name Unknown Organization [facility] Address [address] [place] [address] Phone [phone] Care Team Providers Care Livestock Farm Manager Name Role Phone Rebeca Swift Primary Care Provider Reason for Visit * Reason Comments Outpatient Testing Encounter Details Date Type Department Care Team (Late st Contact Info) Description 10/04/2023 8:10 AM EDT Laboratory Laboratory [address] [place] [phone] [place] [address] [employer] Other*[id number]; Encounter for vitamin deficiency screening; Persistent proteinuria; Chronic kidney disease with symptom management only, stage 3 (moderate) ([facility]) Allergies Active Allergy Reactions Criticality Noted Date [...] 03/25/2004 9 Overview: Per Lipid Taxonomy. FX [id number] 01/16 BENIGN HYPERTENSION 03/22/20 09 Overview: Modified [...] Description 12/02/2023 8:00 AM EDT Laboratory Laboratory [address] [place] [phone] [address] [place] [address] 12/31/2023 8:50 AM EDT Office Visit Family Medicine [address] [place] [phone] Rebeca [address] [place] [address] 03/14/2024 2:40 PM EDT Office Visit Nephrology [address] [place] [address] Yanet Easley MD [address] [facility] [place] [address] 03/16/2024 8:00 AM EDT Office Visit Cardiology [address] [place] [address] Yassine Rodriguez PA-C [address] [place] [address] Pending Results Name Type Priority Associated Diagnoses Date /Time MYCODE SUBSEQUENT ADULT Lab Routine [employer] Other*[id number] 10/04/2023 8:10 AM EDT FERRITIN Lab Routine Encounter for vitamin deficiency screening 10/04/2023 8:10 AM EDT IRON SCREEN, INCLUDING TIBC Lab Routine Encounter for vitamin deficiency screening 10/04/2023 8:10 AM EDT VITAMIN B12 Lab Routine Encounter for vitamin deficiency screening 10/04/2023 8:10 AM EDT URINALYSIS WITH MICROSCOPIC EXAM Lab Routine Persistent proteinuria 10/04/2023 8:39 AM EDT 25-HYDROXY VITAMIN D Lab Routine Chronic kidney disease with symptom management only, stage 3 (moderate) (HCC) 10/04/2023 8:10 AM EDT PHOSPHORUS Lab Routine Chronic kidney disease with symptom management only, stage 3 (moderate) (HCC) 10/04/2023 8:10 AM EDT ALBUMIN / CREATININE RATIO, URINE Lab Routine Persistent proteinuria 10/04/2023 8:38 AM EDT MYCODE SST1 Lab Routine [employer] Other*[id number] 10/04/2023 8:10 AM EDT MYCODE SST2 Lab Routine [employer] Other*[id number] 10/04/2023 8:10 AM EDT Scheduled Procedures Name [...] Additional history exists CKD HGB USE SMARTSET 37354 05/19/202405/19, 05/19/2023, 01/29/2023, Additional history exists CKD PHOS USE SMARTSET 04908 05/19/202407/2023, 05/19/2022, 04/29/2021, Additional history exists DTaP,Tdap,and [...] this encounter Medical Devices Implanted Type Area Professor Of Psychiatry Device Identifier Shelf Expiration Date Model / Serial / Lot Lens Intraoc 24.5 - [id number] - [id number] Implanted:Qty: 1 on 03/25/2021 by Galen Chang MD at [facility] Left: Eye BAUSCH [employer] LOMB 12/14/2025 [id number] / [id number] / [id number] Lens Intraoc 24.0 - [id number] - [id number] Implanted:Qty: 1 on 04/01/2021 by Galen Chang MD at [facility] Right: Eye BAUSCH & LOMB 08/14/2024 [id number] / [id number] / [id number] documented as of this encounter Visit Diagnoses Diagnosis [employer] Other*[id number] Encounter for vitamin deficiency screening Screening for other and unspecified endocrine, nutritional, metabolic, and immunity disorders Persistent proteinuria Proteinuria Chronic kidney disease with symptom management only, stage 3 (moderate) (HCC) documented in this encounter Advance Directives Documents on File Type Date Recorded 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 Question Answer Comments Discussion of Advance Direct hcolo occurred with: Not Discussed due to patient's condition * Full Code Date Activated Date Inactivated Comments 01/06/2023 8:33 AM 01/06/2023 12:08 PM Question Answer Comments Discussion of Advance Direct cholo occurred with: Not Discussed due to patient's condition Care Teams Livestock Farm Manager Relationship Specialty Start Date End Date Rebeca Swift DO [address] [place] [address] [place] [address] PCP - General Internal Medicine 01/08/17 documented as of this encounter
--- OUTSIDE RECORDS SUMMARY | 2023-10-23 17:34 | External Medical Summary | Summary of Care ---
Author Name Unknown Organization [facility] Address [address] [facility] [place] [address] Phone [phone] Care Team Providers Care Pug Mill Operator Name Role Phone Rebeca Swift Primary Care Provider [phone] Reason for Visit * Reason Comments eRx-Medication Refill Encounter Details Date Type Department Care Team (Late st Contact Info) Description 08/29/2023 Refill [address] [place] [phone] Rom Rubio PA-C [address] [place] [address] Hypertensive kidney disease with stage 3 chronic kidney disease, unspecified whether stage 3a or 3b CKD (HCC); Hypertension, uncontrolled Allergies Active Allergy Reactions Criticality Noted Date Comments Oxycodone Nausea/vomiting Medium 05/02/2014 documented as of this encounter (statuses as of 08/30/2023) Medications Medication Sig Dispensed Refills Start Date [...] 02/08/2023 Active Lisinopril 20 MG Oral Tablet (Prinivil)Indicati ons:Hypertensive kidney disease with stage 3b chronic kidney disease (HCC) Take 2 Tablets by mouth in the morning. 180 Tablet 3 03/18/2023 Active Spironolactone 25 MG Oral Tablet (Aldactone) TAKE 1 TABLET BY MOUTH EVERY MORNING 30 Tablet 5 08/10/2023 Active Carvedilol 3.125 MG Oral Tablet (Coreg)Indications :Hypertensive kidney disease with stage 3 chronic kidney disease, unspecified whether stage 3a or 3b CKD (HCC),Hypertension , uncontrolled TAKE ONE TABLET BY MOUTH IN THE MORNING AND IN THE EVENING WITH MEALS 180 Tablet 3 08/30/2023 Active Carvedilol 3.125 MG Oral Tablet (Coreg)Indications :Hypertensive kidney disease with stage 3 chronic kidney disease, unspecified whether stage 3a or 3b CKD (HCC),Hypertension , uncontrolled Take 1 Tablet by mouth 2 times a day with morning and evening meals. 60 Tablet 5 03/04/2023 4 Discontinued documented as of this encounter (statuses as of 08/30/2023) Active Problems Problem Noted Date Diagnosed Date [...] as of this encounter (statuses as of 08/30/2023) Resolved Problems Problem Noted Date Diagnosed Date [...] 03/25/2004 9 Overview: Per Lipid Taxonomy. FX [id number] 01/16 BENIGN HYPERTENSION 03/22/20 09 Overview: Modified per HTN Taxonomy. Dyslipidemia, goal LDL below 160 09/19/2008 Contact dermatitis and other eczema due to other specified agent 03/27/2009 Impaired fasting glucose Vitamin D deficiency 018 Abnormal results of liver function studies 11/03/2011 Senile osteoporosis 05/03/20 13 Kidney disease, chronic, sta ge III (GFR 30-59 ml/min) 03/01/2019 documented as of this encounter (statuses as of 08/30/2023) Immunizations Name Administration Dates Next Due COVID-19 mRNA, LNP-s, No Pre serve, 2-Dose Series (Moderna) 09/13/2020,08/16/2020 COVID-19, LNP-s, No Preserve , Matt-sucrose, Ages 12+ (Pfizer) 11/18/2021 COVID-19, MRNA-LNP, 23-24, P F, 30 MCG/0.3 mL, 12 YRS AND ABOVE, IM ([facility]) 05/28/2023 COVID-19, mRNA, LNP-s, PF, B ooster, 100mcg/0.5mg (YouDataa) 05/20/2021 Covid-19, Mrna, Lnp-s, Pf, B ivalent, 30 Mcg, IM, 12 yrs and above (Edumedics) 05/28/2022 Pneumococcal Conjugate Vacc, 13 Valent (Prevnar) [...] encounter Miscellaneous Notes * Telephone Encounter - Rom Rubio PA-C - 08/30/2023 10:43 AM EDTSigned Prescriptions: Disp Refills Carvedilol 3.125 MG Oral Tablet (Coreg) 180 Ta*3 Sig: TAKE ONE TABLET BY MOUTH IN THE MORNING AND IN THE EVENING WITH MEALS Authorizing Provider: ROM RUBIO * Telephone Encounter - Sarah Jay CMA - 08/30/2023 10:13 AM EDTPending Prescriptions: Disp Refills Carvedilol 3.125 MG Oral Tablet (Coreg) 180 Ta*3 Sig: TAKE ONE TABLET BY MOUTH IN THE MORNING AND IN THE EVENING WITH MEALS * Telephone Encounter - Sarah Jay CMA - 08/30/2023 10:13 AM EDT Did you pend patient's preferred pharmacy and medication before forwarding?yes Pharmacy: [id number] [facility] Pending Prescriptions: Disp Refills Carvedilol 3.125 MG Oral Tablet (Coreg) [*180 Ta*3 Sig: TAKE ONE TABLET BY MOUTH IN THE MORNING AND IN THE EVENING WITH MEALS Last Visit: 03/04/2023 (in office), Visit date not found (telemedicine) Next Visit: 09/09/2023 If no future appointments scheduled, and last appointment is greater than a year ago, please schedule patient for a follow-up appointment Last date the medication was ordered: 03-04-2023 Is this request for a controlled substance?No Urine Drug Screen:No results found for this or any previous visit. Patient Phone Numbers [place] [phone] Labs: Lab Results Component Value Date/Time CREAT 1.2 (H) 05/19/2023 08:39 AM CREAT 1.2 (H) 06/14/2020 09:01 AM POTASSIUM 3.6 05/19/2023 08:39 AM POTASSIUM 4.0 06/14/2020 09:01 AM TSH 1.29 05/22/2022 09:48 AM TSH 1.43 07/14/2018 09:01 AM LDLCALC 74 05/19/2023 08:39 AM LDLCALC 66 04/22/2020 08:25 AM LDLDIRECT NOT APPLICABLE 04/22/2020 08:25 AM ALT 31 05/19/2023 08:39 AM ALT 41 (H) 04/22/2020 08:25 AM HGBA1C 5.4 08/06/2022 07:59 AM HGBA1C 5.4 06/02/2017 09:47 AM documented in this encounter Plan of Treatment Upcoming Encounters Date Type Department Care Team (Late st Contact Info) Description 09/03/2023 8:15 AM EDT Imaging Radiology [address] [place] [phone] 09/09/2023 8:00 AM EDT Office Visit Cardiology [address] [place] [address] Rom Rubio PA-C [address] [place] [address] 10/04/2023 8:10 AM EDT Laboratory Laboratory [address] [place] [phone] [address] [place] [address] 12/02/2023 8:00 AM EDT Laboratory Laboratory [address] [place] [phone] [address] [place] [address] 12/31/2023 8:50 AM EDT Office Visit Family Medicine [address] [place] [phone] [address] [place] [address] 03/14/2024 2:40 PM EDT Office Visit Nephrology [address] [place] [address] Yanet Easley MD [address] [place] [address] Scheduled Procedures Name Priority Associated Diagnoses Date/Ti me COLONOSCOPY FLEXIBLE PROXIMAL DIAGNOSTIC Recall History of colon polyps Health Maintenance Due Date Last Done Comments Depression Screening 06/01/2023 06/01/2022 Albumin/Creatinine Ratio 09/22/2023 023, 05/19/2022, 10/28/2021, Additional history exists GFR 11/17/2023 05/19/2023, 11/0 05/2022, 03/04/2023, Additional history exists CKD HGB USE SMARTSET 52668 05/19/202405/19, 05/19/2023, 01/29/2023, Additional history exists CKD PHOS USE SMARTSET 69225 05/19/202407/2023, 05/19/2022, 04/29/2021, Additional history exists DTaP,Tdap,and [...] this encounter Medical Devices Implanted Type Area Community Health Nurse Device Identifier Shelf Expiration Date Model / Serial / Lot Lens Intraoc 24.5 - [id number] - [id number] Implanted:Qty: 1 on 03/25/2021 by Galen Chang MD at [facility] Left: Eye BAUSCH & LOMB 12/14/2025 [id number] / [id number] / [id number] Lens Intraoc 24.0 - [id number] - [id number] Implanted:Qty: 1 on 04/01/2021 by Galen Chang MD at [facility] Right: Eye BAUSCH & LOMB 08/14/2024 [id number] / [id number] / [id number] documented as of this encounter Visit Diagnoses Diagnosis Hypertensive kidney disease with stage 3 chronic kidney disease, unspecified whether stage 3a or 3b CKD (HCC) Hypertension, uncontrolled Unspecified essential hypertension documented in this encounter Advance Directives Documents on File Type Date Recorded 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
--- OUTSIDE RECORDS SUMMARY | 2023-10-23 17:34 | External Medical Summary | Summary of Care ---
Author Name Unknown Organization [facility] Address [address] [facility] [place] [address] Phone [phone] Care Team Providers Care Manager Java Name Role Phone Rebeca Swift DO Primary Care Provider [phone] Reason for Visit * Reason Comments Follow Up 6 month follow up. D enies chest pain, palpitations, dizziness, SOB and edema. Encounter Details Date Type Department Care Team (Late st Contact Info) Description 09/09/2023 8:00 AM EDT Office Visit Cardiology [address] [place] [phone] Yassine Rodriguez PA-C [address] [place] [address] HTN, goal below 130/80*; Dyslipidemia, goal LDL below 100; Bilateral carotid bruits; PFO (patent foramen ovale) Allergies Active Allergy Reactions Criticality Noted Date Comments Oxycodone Nausea/vomiting Medium 05/02/2014 documented as of this encounter (statuses as of 09/09/2023) Medications Medication Sig Dispensed Refills Start Date [...] as of this encounter (statuses as of 09/09/2023) Active Problems Problem Noted Date Diagnosed Date [...] as of this encounter (statuses as of 09/09/2023) Resolved Problems Problem Noted Date Diagnosed Date [...] 03/25/2004 9 Overview: Per Lipid Taxonomy. FX [id number] 01/16 BENIGN HYPERTENSION 03/22/20 09 Overview: Modified per HTN Taxonomy. Dyslipidemia, goal LDL below 160 09/19/2008 Contact dermatitis and other eczema due to other specified agent 03/27/2009 Impaired fasting glucose Vitamin D deficiency 018 Abnormal results of liver function studies 11/03/2011 Senile osteoporosis 05/03/20 13 Kidney disease, chronic, sta ge III (GFR 30-59 ml/min) 03/01/2019 documented as of this encounter (statuses as of 09/09/2023) Immunizations Name Administration Dates Next Due COVID-19 mRNA, LNP-s, No Pre serve, 2-Dose Series (Moderna) 09/13/2020,08/16/2020 COVID-19, LNP-s, No Preserve , Matt-sucrose, Ages 12+ (Pfizer) 11/18/2021 COVID-19, MRNA-LNP, 23-24, P F, 30 MCG/0.3 mL, 12 YRS AND ABOVE, IM (Stentys-Comirnat) 05/28/2023 COVID-19, mRNA, LNP-s, PF, B ooster, [...] Sign Reading Time Taken Comments Blood Pressure 138/74 09/09/2023 7:57 AM EDT Pulse 72 09/09/2023 7:57 AM EDT Temperature - - Respiratory Rate 15 09/09/2023 7:57 AM EDT Oxygen Saturation - - Inhaled Oxygen Concentration - - Weight 56.7 kg (125 lb 1.6 oz) 09/09/2023 7:57 A M EDT Height - - Body Mass Index 20.82 08/02/2023 1:56 PM EDT documented in this [...] as of this encounter Progress Notes * Yassine Rodriguez PA-C - 09/09/2023 8:00 AM EDT History of Present Illness: Doris Pretty is a 82 year old female here today for routine cardiologyfollow-up evaluation. Patient returns today feeling relatively well from a cardiac standpoint. Notes gradually putting on the needed weight that she lost in and around the time of the gallbladder issue last summer. Weight is up 7 lb from last evaluation in the Fall. No chest pain or discomfort. No palpitations. No new or worsening shortness of breath. No fluid retention. No positional dizziness, near syncope, or syncope. Bowels are dark can stable, on oral iron replacement therapy. No hematuria. No night sweats. No rash. Patient Active Problem List Diagnosis Code Osteoarthrosis [...] artery disease (HCC) I77.9 SVT (supraventricular tachycardia) (HCC) I47.10 Family history of kidney disease in brother Z84.1 Primary osteoarthritis of both knees M17.0 PFO (patent foramen ovale) Q21.12 Liver cyst K76.89 Review of patient's allergies indicates: Allergen Reactions Oxycodone Nausea/vomiting Current Outpatient Medications Medication Sig Dispense Refill [...] No current facility-administered medications for this visit. OBJECTIVE/PHYSICAL EXAMINATION: BP 138/74 | Pulse 72 | Resp 15 | Wt 56.7 kg (125 lb 1.6 oz) | BMI 20.82 kg/m | BSA 1.61 m | General: NAD. HENT: Normocephalic. Eyes: PER. Conjunctiva pink, sclera clear. Neck: Left carotid bruit.No JVD. Heart: RRR, 80 bpm. Soft systolic ejection murmur. No diastolic murmur. No rub. Lungs: Clear to auscultation. Abdomen: +BS. Soft. Nontender. No masses or organomegaly. Extremities: No clubbing, cyanosis, or peripheral edema. Neuro: No focal deficit. Data: November 22, 2018 BHAVIN Interpretation Summary (as per Dr. Gonzales): The stress echo is negative for inducible ischemia. Exercise capacity is below average. There was an accelerated heart rate and hypertensive blood pressure response to exercise. Interventricular conduction delay occurred with stress. Peak stress EKG was nondiagnostic due to rate-related IVCD. EKG with return to normal conduction 1 min post exercise and a heart rate of 129 revealed no ischemic changes. The left ventricular wall motion is normal. The left ventricular wall motion with stress is normal. The left ventricular ejection fraction increases normally with stress. The left ventricular systolic function is normal. The qualitative LV ejection fraction is 65-69% (normal). The LV wall thickness is mildly increased (concentric). EKG performed on March 04, 2023 personally reviewed, revealed normal sinus rhythm at 85 bpm with possible left atrial enlargement, left ventricular hypertrophy. March 18, 2023 TTE Interpretation Summary (as per Dr. Ferreira): The LV wall thickness is normal.The left ventricular wall motion is normal. The qualitative LV ejection fraction is 55-59% (normal). The left ventricular diastolic function is mildly abnormal (grade I). Mild tricuspid regurgitationis present. March 24, 2023 Lexiscan Interpretation Summary (as per Dr. Aguilar): Lexiscan nuclear stress test negative for ischemia or scar. Gated SPECT images reveals normal myocardial thickening and wall motion. The LV ejection fraction is calculated at >70%. ASSESSMENT AND RECOMMENDATIONS/PLAN: Hypertension. Blood pressure acceptably controlled. Continue the current antihypertensive regimen. Dyslipidemia. LDL cholesterol 74 mg/dL on May 19, 2023. Continue rosuvastatin 40 mg/day. Mild bilateral internal carotid artery disease. Carotid duplex in August 2023 revealed stable mild bilateral internal carotid artery disease, unchanged for a number of years. Repeat carotid duplex in August 2026. PFO. No right to left interatrial shunt at rest or with valsalva by saline contrast injection. Continue ASA 81 mg/day Renal dysfunction. [facility] Nephrology Routine Cardiology follow-up, or as needed. ER with emergencies. Yassine Rodriguez PA-C Department of Cardiology I spent a total of 20-29 minutes (exact time 22 mins) on the date of service in preparation, delivery, and documentation of the care provided to Doris Pretty excluding any time spent in the performance of separately billed services. This visit involved medical care services related to at least oneserious condition or complex condition requiring ongoing care. This chart was completed in part util [employer] Speech Voice Recognition Software. Grammatical errors, random word insertions, prounoun errors, and incomplete sentences are an occasional consequence of this system due to software limitations, ambient noise, and hardware issues. Any formal questions or concerns about the content, text, or information contained within the body of this dictation should be directly addressed to the provider for clarification. documented in this encounter Nursing Notes * Camden Weldon LPN - 09/09/2023 7:56 AM EDT Patient identified by full name and date of Chief Complaint Patient presents with Follow Up 6 month follow up. Denies chest pain, palpitations, dizziness, SOB and edema. Examination Room: 3 Name: Doris Pretty Date of : (1940). Reason for Visit: 6 month follow up Interim Hospitalization(s): Denies Problems/Concerns: Denies Chest Pain/SOB: Denies [facility] Discussed: Yes [facility] is a way you can talk to your provider online through e-mail. Would you like to sign up? I can activate it for you? DECLINES Patient was instructed to not get up on the exam table until directed and assisted by their provider; patient is to remain seated in the chair/ wheelchair/ exam table for fall prevention and safety reasons. Patient is aware to have assistance to step down off exam table with personnel. Patient voiced full comprehension of instructions. documented in this encounter Plan of Treatment Upcoming Encounters Date Type Department Care Team (Late st Contact Info) Description 10/04/2023 8:10 AM EDT Laboratory Laboratory [address] [place] [phone] [place] [address] 12/02/2023 8:00 AM EDT Laboratory Laboratory [address] [place] [phone] [place] [address] 12/31/2023 8:50 AM EDT Office Visit Family Medicine [address] [place] [address] [place] [address] 03/14/2024 2:40 PM EDT Office Visit Nephrology [address] [place] [address] Yanet Easley MD [address] [place] [address] 03/16/2024 8:00 AM EDT Office Visit Cardiology [address] [place] [address] Yassine Rodriguez PA-C [address] [place] [address] Scheduled Procedures Name Priority Associated Diagnoses Date/Ti me COLONOSCOPY FLEXIBLE PROXIMAL DIAGNOSTIC Recall History of colon polyps Health Maintenance Due Date Last Done Comments Depression Screening 06/01/2023 06/01/2022 Albumin/Creatinine Ratio 09/22/2023 023, 05/19/2022, 10/28/2021, Additional history exists GFR 11/17/2023 05/19/2023, 110 05/2022, 03/04/2023, Additional history exists CKD HGB USE SMARTSET 90699 05/19/202405/19, 05/19/2023, 01/29/2023, Additional history exists CKD PHOS USE SMARTSET 80360 05/19/202407/2023, 05/19/2022, 04/29/2021, Additional history exists DTaP,Tdap,and [...] this encounter Medical Devices Implanted Type Area Commissary Production Supervisor Device Identifier Shelf Expiration Date Model / Serial / Lot Lens Intraoc 24.5 - [id number] - [id number] Implanted:Qty: 1 on 03/25/2021 by Galen Chang MD at [facility] Left: Eye BAUSCH [employer] LOMB 12/14/2025 [id number] / [id number] / [id number] Lens Intraoc 24.0 - [id number] - [id number] Implanted:Qty: 1 on 04/01/2021 by Galen Chang MD at OR [facility] Right: Eye BAUSCH & LOMB 08/14/2024 [id number] / [id number] / [id number] documented as of this encounter Visit Diagnoses Diagnosis HTN, goal below 130/80- Primary Unspecified essential hypertension Dyslipidemia, goal LDL below 100 Other and unspecified hyperlipidemia Bilateral carotid bruits PFO (patent foramen ovale) Ostium secundum type atrial septal defect documented in this encounter Advance Directives Documents on File Type Date Recorded 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
--- OUTSIDE RECORDS SUMMARY | 2023-10-23 17:34 | External Medical Summary ---
Author Name Unknown Address Unknown Organization K01:[place] [facility] [place] [address] [place] [address] Laboratory Report Ordering Provider Test Date Status SINGH KRAUS 10/04/2023 08:10:59 Final Observation Date Value Abnormality Reference (Units ) Status Vitamin B12 10/04/2023 08:10:59 367 210-2808 (pg/mL) Final Performing Location LABORATORY [facility] - [address] [place] [address]
--- OUTSIDE RECORDS SUMMARY | 2023-10-23 17:34 | External Medical Summary | Summary of Care ---
Author Name Unknown Organization [facility] Address [address] [place] [address] Phone [phone] Care Team Providers Care Special Event Assistant Name Role Phone Rebeca Swift Primary Care Provider Reason for Visit * Reason Comments Outpatient Testing Encounter Details Date Type Department Care Team (Late st Contact Info) Description 10/04/2023 8:10 AM EDT Laboratory Laboratory [address] [place] [phone] [place] [address] [employer] Other*[id number]; Encounter for vitamin deficiency screening; Persistent proteinuria; Chronic kidney disease with symptom management only, stage 3 (moderate) ([facility]) Allergies Active Allergy Reactions Criticality Noted [...] 03/25/2004 9 Overview: Per Lipid Taxonomy. FX [id number] 01/16 BENIGN HYPERTENSION 03/22/20 09 Overview: Modified [...] Description 12/02/2023 8:00 AM EDT Laboratory Laboratory [address] [place] [phone] [address] [place] [address] 12/31/2023 8:50 AM EDT Office Visit Family Medicine [address] [phone] Swift Rebeca Driscolle[address] [place] [address] 03/14/2024 2:40 PM EDT Office Visit Nephrology [address] [place] [address] Yanet Easley MD [address] [place] [address] 03/16/2024 8:00 AM EDT Office Visit Cardiology [address] [place] [address] Yassine Rodriguez PA-C [address] [place] [address] Pending Results Name Type Priority Associated Diagnoses Date /Time MYCODE SUBSEQUENT ADULT Lab Routine [employer] Other*[id number] 10/04/2023 8:10 AM EDT FERRITIN Lab Routine [...] EDT MYCODE SST1 Lab Routine [employer] Other*[id number] 10/04/2023 8:10 AM EDT MYCODE SST2 Lab Routine [employer] Other*[id number] 10/04/2023 8:10 AM EDT Scheduled Procedures Name [...] Additional history exists CKD HGB USE SMARTSET 50215 05/19/202405/19, 05/19/2023, 01/29/2023, Additional history exists CKD PHOS USE SMARTSET 28892 05/19/202407/2023, 05/19/2022, 04/29/2021, Additional history exists DTaP,Tdap,and [...] this encounter Medical Devices Implanted Type Area Cleat Feeder Device Identifier Shelf Expiration Date Model / Serial / Lot Lens Intraoc 24.5 - [id number] - [id number] Implanted:Qty: 1 on 03/25/2021 by Galen Chang MD at OR [facility] Left: Eye [employer]USCH [employer] LOMB 12/14/2025 [id number] / [id number] / [id number] Lens Intraoc 24.0 - [id number] - [id number] Implanted:Qty: 1 on 04/01/2021 by Galen Chang MD at [facility] Right: Eye BAUSCH & LOMB 08/14/2024 [id number] / [id number] / [id number] documented as of this encounter Visit Diagnoses Diagnosis [employer] Other*[id number] Encounter for vitamin deficiency screening Screening for other and unspecified endocrine, nutritional, metabolic, and immunity disorders Persistent proteinuria Proteinuria Chronic kidney disease with symptom management only, stage 3 (moderate) (HCC) documented in this encounter Advance Directives Documents on File Type Date 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
--- OUTSIDE RECORDS SUMMARY | 2023-10-23 17:34 | External Medical Summary ---
Author Name Unknown Address Unknown Organization K01:[facility] - [address] [place] [address] Laboratory Report Ordering Provider Test Date Status NUVIA WHITE 10/04/2023 08:38:39 Final Normal: <30 mg/g creatinine< br/>High: 30-300 mg/g creatinine
Very High: >300 mg/g creatinine
Nephrotic: >2200 mg/g creatinine Observation Date Value Abnormality Reference (Units ) Status Albumin, Urine 10/04/2023 08:38:39 36.54 (mg/dL) Final Creatinine, Urine 10/04/2023 08:38:39 116 (mg/dL) Final Albumin/Creatinine [Mass Ratio] in Urine 10/04/2023 08:38:39 315 Above high normal <30 (mg/g Creat) Final Performing Location [facility] [place] [address] [place] [address]
--- OUTSIDE RECORDS SUMMARY | 2023-10-23 17:35 | External Medical Summary | Summary of Care ---
Author Name Unknown Organization [facility] Address [address] [place] [address] Phone [phone] Care Team Providers Care Records Management Technician Name Role Phone Rebeca Swift Primary Care Provider [phone] Reason for Visit * Reason Comments Appointment Encounter Details Date Type Department Care Team (Late st Contact Info) Description 06/25/2023 6:10 PM [facility] Pharmacy Pharmacy, [address] [place] [address] [place] [address] Essential hypertension with goal blood pressure less than 140/90* Allergies Active Allergy Reactions Criticality Noted Date Comments Oxycodone Nausea/vomiting Medium 05/02/2014 documented as of this encounter (statuses as of 06/25/2023) Medications Medication Sig Dispensed Refills Start Date [...] as of this encounter (statuses as of 06/25/2023) Active Problems Problem Noted Date Diagnosed Date [...] as of this encounter (statuses as of 06/25/2023) Resolved Problems Problem Noted Date Diagnosed Date [...] 03/25/2004 9 Overview: Per Lipid Taxonomy. FX [id number] 01/16 BENIGN HYPERTENSION 03/22/20 09 Overview: Modified per HTN Taxonomy. Dyslipidemia, goal LDL below 160 09/19/2008 Contact dermatitis and other eczema due to other specified agent 03/27/2009 Impaired fasting glucose Vitamin D deficiency 018 Abnormal results of liver function studies 11/03/2011 Senile osteoporosis 05/03/20 13 Kidney disease, chronic, sta ge III (GFR 30-59 ml/min) 03/01/2019 documented as of this encounter (statuses as of 06/25/2023) Immunizations Name Administration Dates Next Due COVID-19 [...] as of this encounter Progress Notes * Dana Jim, truck technician - 06/25/2023 9:45 AM EST Patient Phone Numbers Left message on patients answering machine to schedule [facility] appointment for HTN management. [facility] message sent --no Clinic will follow up again in 4 week(s). [Attempt # 3] Thank you, Dana Jim Adult Literacy Instructor [facility] ([facility] (Formerly Telepharmacy) 06/25/2023, 9:47 AM documented in this encounter Plan of Treatment Upcoming Encounters Date Type Department Care Team (Late st Contact Info) Description 07/23/2023 6:10 PM EST Pharmacy Pharmacy, [address] [place] [address] [place] [address] 08/02/2023 2:00 PM EDT Office Visit Nephrology [address] [place] [address] Valerie Valdivia PA-C [address] [place] [address] 09/03/2023 8:30 AM EDT Imaging Radiology [address] [place] [address] 09/09/2023 8:00 AM EDT Office Visit Cardiology [address] [place] [address] Yassine Rodriguez PA-C [address] [place] [address] 12/31/2023 8:50 AM EDT Office Visit Family Medicine [address] [place] [phone] [place] [address] Scheduled Procedures Name Priority Associated Diagnoses Date/Ti me COLONOSCOPY FLEXIBLE PROXIMAL DIAGNOSTIC Recall History of colon polyps Health Maintenance Due Date Last Done Comments Depression Screening 06/01/2023 06/01/2022 Albumin/Creatinine Ratio 09/22/2023 023, 05/19/2022, 10/28/2021, Additional history exists GFR 11/17/2023 05/19/2023, 11/0 05/2022, 03/04/2023, Additional history exists CKD HGB USE SMARTSET 93582 05/19/202405/19, 05/19/2023, 01/29/2023, Additional history exists CKD PHOS USE SMARTSET 79693 05/19/2024 01/07/2023, 05/19/2022, 04/29/2021, Additional history exists DTaP,Tdap,and Td [...] this encounter Medical Devices Implanted Type Area Talent Associate Device Identifier Shelf Expiration Date Model / Serial / Lot Lens Intraoc 24.5 - [id number] - [id number] Implanted:Qty: 1 on 03/25/2021 by Galen Chang MD at [facility] Left: Eye BAUSCH [employer] LOMB 12/14/2025 [id number] / [id number] / [id number] Lens Intraoc 24.0 - [id number] - [id number] Implanted:Qty: 1 on 04/01/2021 by Galen Chang MD at OR [facility] Right: Eye BAUSCH & LOMB 08/14/2024 [id number] / [id number] / [id number] documented as of this encounter Visit Diagnoses Diagnosis Essential hypertension with goal blood pressure less than 140/90- Primary documented in this encounter Advance Directives Documents on File Type Date 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
--- OUTSIDE RECORDS SUMMARY | 2023-10-23 17:35 | External Medical Summary | Summary of Care ---
Author Name Unknown Organization [facility] Address [address] [place] [address] Phone [phone] Care Team Providers Care Supplier Specialist Name Role Phone Rebeca Swift DO Primary Care Provider [phone] Reason for Visit * Reason Comments Re-Check Pt denies any concer ns at this time. Encounter Details Date Type Department Care Team (Latest Contact Info) Description 05/28/2023 8:50 AM EST Office Visit Family Medicine [address] [phone] Rebeca Swift [address] [place] [phone] Essential hypertension with goal blood pressure less than 140/90*; Senile osteoporosis; Dyslipidemia, goal LDL below 70; Chronic kidney disease, stage 3b (HCC); SVT (supraventricular tachycardia); Hypertensive kidney disease with stage 3b chronic kidney disease (HCC); Encounter for vitamin deficiency screening; Primary osteoarthritis of both knees Allergies Active Allergy Reactions Criticality Noted Date Comments Oxycodone Nausea/vomiting Medium 05/02/2014 documented as of this encounter (statuses as of 05/28/2023) Medications Medication Sig Dispensed Refills Start Date [...] as of this encounter (statuses as of 05/28/2023) Active Problems Problem Noted Date Diagnosed Date [...] as of this encounter (statuses as of 05/28/2023) Resolved Problems Problem Noted Date Diagnosed Date [...] 03/25/2004 9 Overview: Per Lipid Taxonomy. FX [id number] 01/16 BENIGN HYPERTENSION 03/22/20 09 Overview: Modified per HTN Taxonomy. Dyslipidemia, goal LDL below 160 09/19/2008 Contact dermatitis and other eczema due to other specified agent 03/27/2009 Impaired fasting glucose Vitamin D deficiency 018 Abnormal results of liver function studies 11/03/2011 Senile osteoporosis 05/03/20 13 Kidney disease, chronic, sta ge III (GFR 30-59 ml/min) 03/01/2019 documented as of this encounter (statuses as of 05/28/2023) Immunizations Name Administration Dates Next Due COVID-19 mRNA, LNP-s, No Pre serve, 2-Dose Series (Moderna) 09/13/2020,08/16/2020 COVID-19, LNP-s, No Preserve , Matt-sucrose, Ages 12+ (Pfizer) 11/18/2021 COVID-19, MRNA-LNP, 23-24, P F, 30 MCG/0.3 mL, 12 YRS AND ABOVE, IM (Instapage-Comirnatshoutr) 05/28/2023 COVID-19, mRNA, LNP-s, PF, B ooster, 100mcg/0.5mg (Traveler | VIPa) 05/20/2021 Covid-19, Mrna, Lnp-s, Pf, B ivalent, 30 Mcg, IM, 12 yrs and above (cookdinner) 05/28/2022 Pneumococcal Conjugate Vacc, 13 Valent (Prevnar) [...] money to buy more. Never true 06/01/19 23 Within the past 12 months, t he [...] Sign Reading Time Taken Comments Blood Pressure 136/78 05/28/2023 9:23 AM EST Pulse 76 05/28/2023 9:23 AM EST Temperature 36.8 C (98.3 F) 05/28/2023 9:23 AM ES T Respiratory Rate - - Oxygen Saturation 96% 05/28/2023 9:23 AM EST Inhaled Oxygen Concentration - - Weight 56 kg (123 lb 6.4 oz) 05/28/2023 9:23 AM EST Height - - Body Mass Index 20.53 01/25/2023 10:32 AM EDT documented in this encounter Functional Status [...] (15 years old or older) No 01/07/20 23 Cognitive Status Response Date of Assessm ent Because of a physical, menta l, or emotional condition, do you have serious difficulty concentrating, remembering, or making decisions? (5 years old or older) Yes 01/06/2023 documented as of this encounter Progress Notes * Rebeca Swift, DO - 05/28/2023 9:30 AM EST Subjective: Doris Pretty is a 82 year old female. Chief Complaint Patient presents with Re-Check Pt denies any concerns at this time. HPI: Doris Pretty presents today for routine follow up. She has no concerns today. She recently had blood work completed. Her knees hurt, she attributes this to the weather and arthritis. She is dealing with it and does not want to see orthopedics for this at this time. Appetite is good. Weight is stable. No problems with diarrhea since having her gallbladder out. BP is well controlled here today. Kidney function is stable. She continues to take iron daily. Discussed that she can stop this when she completes her bottom. No chest pain. No SOB or wheezing. She underwent neuropsych test and did well. She is agreeable to getting her COVID shot. PMH: Patient Active Problem List Diagnosis Code Osteoarthrosis [...] (patent foramen ovale) Q21.12 Liver cyst K76.89 Current Outpatient Medications Medication Sig Dispense Refill [...] No current facility-administered medications for this visit. Review of patient's allergies indicates: Allergen Reactions Oxycodone Nausea/vomiting Objective: BP 136/78 | Pulse 76 | Temp 36.8 C (98.3 F) | Wt 56 kg (123 lb 6.4 oz) | SpO2 96% | BMI 20.53 kg/m | BSA 1.6 m General: alert, healthy, no distress, well nourished, and well developed Neck: supple, no adenopathy, thyroid normal size, non-tender, without nodularity Heart: regular rate & rhythm and no murmur Lungs: chest symmetric with normal AP diameter, no chest deformities noted, normal respiratory rateand rhythm, lungs clear to auscultation Abdomen: abdomen soft and non-tender Extremities: no joint deformities, effusion, or inflammation, no edema Neuro Exam: alert & oriented x 3 with fluent speech, no focal motor/sensory deficits, gait normal Skin: (+) pink patch on the left cheek, no stimata of bleeding ASSESSMENT/PLAN: Essential hypertension with goal blood pressure less than 140/90 (Primary) - at goal. Also follows with MTM for her blood pressure Senile osteoporosis - continue calcium + vitamin D and weight-bearing exercise Dyslipidemia, goal LDL below 70 - continue rosuvastatin Chronic kidney disease, stage 3b (HCC) - follows with nephrology SVT (supraventricular tachycardia) - continue carvedilol Hypertensive kidney disease with stage 3b chronic kidney disease (HCC) Encounter for vitamin deficiency screening - finish iron that she has then, stop it. - FERRITIN; Future; Expected date: 07/27/2023 - IRON SCREEN, INCLUDING TIBC; Future; Expected date: 07/27/2023 - VITAMIN B12; Future; Expected date: 07/27/2023 Primary osteoarthritis of both knees - she is tolerating this fine at the moment. Follow-up: Return in about 6 months (around 11/26/2023). | Check-out note: Labs another day Rebeca Swift DO documented in this encounter Plan of Treatment Upcoming Encounters Date Type Department Care Team (Late st Contact Info) Description 06/02/2023 9:00 AM EST Nurse Only Ancillary [address] [place] [address] Hai, Nurse [address] [place] [address] 06/25/2023 6:10 PM EST Pharmacy Pharmacy, [address] [place] [address] [place] [address] 08/02/2023 2:00 PM EDT Office Visit Nephrology [address] [place] [address] Valerie Valdivia PA-C [address] [facility] [place] [place] [address] 09/03/2023 8:30 AM EDT Imaging Radiology [address] [place] [address] 09/09/2023 8:00 AM EDT Office Visit Cardiology [address] [place] [address] Yassine Rodriguez PA-C [address] [place] [address] 12/31/2023 8:50 AM EDT Office Visit Family Medicine [address] [place] [phone] Jamison Rebeca [address] [place] [address] Scheduled Orders Name Type Priority Associated Diagnoses Orde r Schedule FERRITIN Lab Routine Encounter for vitamin deficiency screening Expected: 07/27/2023 (Approximate), Expires: 05/27/2024 IRON SCREEN, INCLUDING TIBC Lab Routine Encounter for vitamin deficiency screening Expected: 07/27/2023 (Approximate), Expires: 05/27/2024 VITAMIN B12 Lab Routine Encounter for vitamin deficiency screening Expected: 07/27/2023 (Approximate), Expires: 05/27/2024 Scheduled Procedures Name Priority Associated Diagnoses Date/Ti me COLONOSCOPY FLEXIBLE PROXIMAL DIAGNOSTIC Recall History of colon polyps Health Maintenance Due Date Last Done Comments Depression Screening 06/01/2023 06/01/2022 Albumin/Creatinine Ratio 09/22/2023 023, 05/19/2022, 10/28/2021, Additional history exists GFR 11/17/2023 05/19/2023, 1105/2022, 03/04/2023, Additional history exists CKD HGB USE SMARTSET 52003 05/19/202405/19, 05/19/2023, 01/29/2023, Additional history exists CKD PHOS USE SMARTSET 78064 05/19/202407/2023, 05/19/2022, 04/29/2021, Additional history exists DTaP,Tdap,and Td Vaccines (2 - Td or Tdap) 10/30/2029 10/31/2019, 02/16/2008 Pneumococcal Vaccine: 65+ Years Completed 05/23/2015, 02/16/2008 COLONOSCOPY-EVERY 5 YRS AGES 18-100 Discontinued 12/08/2017, 12/08/2017, 12/01/2011, Additional history exists Zoster Vaccines Completed 03/02/2020, 12/15, 10/31/2019, Additional history exists Influenza Vaccine (FLU shot) Completed 01/29/2023, 03/03/2022, 01/24/2021, Additional history exists COVID-19 Vaccine Completed 05/28/2023, [...] this encounter Medical Devices Implanted Type Area Supervisor Audit Clerks Device Identifier Shelf Expiration Date Model / Serial / Lot Lens Intraoc 24.5 - [id number] - [id number] Implanted:Qty: 1 on 03/25/2021 by Galen Chang MD at OR [facility] Left: Eye BAUSCH [employer] LOMB 12/14/2025 [id number] / [id number] / [id number] Lens Intraoc 24.0 - [id number] - [id number] Implanted:Qty: 1 on 04/01/2021 by Galen Chang MD at OR [facility] Right: Eye BAUSCH & LOMB 08/14/2024 [id number] / [id number] / [id number] documented as of this encounter Visit Diagnoses Diagnosis Essential hypertension with goal blood pressure less than 140/90- Primary Senile osteoporosis Dyslipidemia, goal LDL below 70 Other and unspecified hyperlipidemia Chronic kidney disease, stage 3b (HCC) SVT (supraventricular tachycardia) Other specified cardiac dysrhythmias Hypertensive kidney disease with stage 3b chronic kidney disease (HCC) Encounter for vitamin deficiency screening Screening for other and unspecified endocrine, nutritional, metabolic, and immunity disorders Primary osteoarthritis of both knees Primary localized osteoarthrosis, lower leg documented in this encounter Advance Directives Documents on File Type Date Recorded Patient Provider Relations Specialist Expl anation Advance Directives and Living Will 10/06/2017 ADVANCE DIRECTIVE / LIVING WILL Power of Farm Implement Engine Mechanic 10/06/2017 POWER OF A TTORNEY Latest Code [...] Discussed due to patient's condition Care Teams Supplier Specialist Relationship Specialty Start Date End Date Rebeca Swift DO [address] [place] [address] [place] [phone] PCP - General Internal Medicine 01/08/17 documented as of this encounter"
--- OUTSIDE RECORDS SUMMARY | 2023-10-23 17:35 | External Medical Summary | Summary of Care ---
Author Name Unknown Organization [facility] Address [address] [place] [address] Phone [phone] Care Team Providers Care Manager Change Name Role Phone Rebeca Swift Primary Care Provider [phone] Encounter Details Date Type Department Care Team (Late st Contact Info) Description 05/28/2023 9:55 AM EST Immunization Ancillary [address] [place] [address] [facility] Covid19 Vaccine [address] [place] [address] Arrived Allergies Active Allergy Reactions Criticality Noted [...] 03/25/2004 9 Overview: Per Lipid Taxonomy. FX [id number] 01/16 BENIGN HYPERTENSION 03/22/20 09 Overview: Modified [...] 06/02/2023 9:00 AM EST Nurse Only Ancillary [address] [place] [address] [place], Nurse [address] [place] [address] 06/25/2023 6:10 PM EST Pharmacy Pharmacy, [address] [place] [address] [place] [address] 08/02/2023 2:00 PM EDT Office Visit Nephrology [address] [place] [address] Valerie Valdivia PA-C [address] [place] [address] 09/03/2023 8:30 AM EDT Imaging Radiology [address] [place] [address] 09/09/2023 8:00 AM EDT Office Visit Cardiology [address] [place] [address] Yassine Rodriguez PA-C [address] [place] [address] 12/31/2023 8:50 AM EDT Office Visit Family Medicine [address] [place] [phone] [address] [place] [address] Scheduled Procedures Name Priority Associated Diagnoses Date/Ti me COLONOSCOPY FLEXIBLE PROXIMAL DIAGNOSTIC Recall History of colon polyps Health Maintenance Due Date Last Done Comments Depression Screening 06/01/2023 06/01/2022 Albumin/Creatinine Ratio 09/22/2023 023, 05/19/2022, 10/28/2021, Additional history exists GFR 11/17/2023 05/19/2023, 05/2022, 03/04/2023, Additional history exists CKD HGB USE SMARTSET 54340 05/19/202405/19, 05/19/2023, 01/29/2023, Additional history exists CKD PHOS USE SMARTSET 76325 05/19/202407/2023, 05/19/2022, 04/29/2021, Additional history exists DTaP,Tdap,and [...] this encounter Medical Devices Implanted Type Area Nutrient Management Specialist Device Identifier Shelf Expiration Date Model / Serial / Lot Lens Intraoc 24.5 - [id number] - [id number] Implanted:Qty: 1 on 03/25/2021 by Galen Chang MD at OR [facility] Left: Eye BAUSCH & LOMB 12/14/2025 [id number] / [id number] / [id number] Lens Intraoc 24.0 - [id number] - [id number] Implanted:Qty: 1 on 04/01/2021 by Galen Chang MD at OR [facility] Right: Eye BAUSCH & LOMB 08/14/2024 [id number] / [id number] / [id number] documented as of this encounter Advance Directives Documents on File Type Date Recorded 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
--- OUTSIDE RECORDS SUMMARY | 2023-10-23 17:35 | External Medical Summary | Summary of Care ---
Author Name Unknown Organization [facility] Address [address] [place] [address] Phone [phone] Care Team Providers Care Jackhammer Splitter Operator Name Role Phone Rebeca Swift DO Primary Care Provider [phone] Reason for Visit * Reason Onset Date Comments Pre Cert/Prior Auth 03/16/2023 Encounter Details Date Type Department Care Team ([facility] st Contact Info) Description 03/16/2023 Telephone Neuropsychology [facility] [address] [place] [address] Sameer Le, PhD [address] [place] [address] Pre Cert/Prior Auth Allergies Active Allergy Reactions Criticality Noted Date Comments Oxycodone Nausea/vomiting Medium 05/02/2014 documented as of this encounter (statuses as of 06/15/2023) Medications Medication Sig Dispensed Refills Start Date End Date Status ASPIRIN 81 MG PO TABS 1 TABLET DAILY 0 0 02/16/2008 Active CALCIUM CITRATE-VITAMIN D 315-200 MG-UNIT PO TABS Take 1 Tablet by mouth. 0 0 09/19/2008 Active VITAMIN C CR 1000 MG PO TBCR Take 500 mg by mouth every morning. 0 0 09/19/2008 Active COQ10 200 MG PO CAPSIndications:Dyslip idemia, goal LDL below 130 one tablet daily 30 3 05/16/2009 Active VITAMIN D3 2000 UNIT PO CAPSIndications:Vitami n D deficiency 1 CAPSULE DAILY 0 10/02/2009 Activ e B COMPLEX PO TABS 1 tablet one [...] Active Rosuvastatin Calcium 40 MG Oral Tablet (Crestor)Indications:D yslipidemia, goal LDL below 70 TAKE ONE TABLET BY MOUTH EVERY DAY 90 Tablet 3 02/08/2023 Active Spironolactone 25 MG Oral Tablet (Aldactone) Take 1 Tablet by mouth in the morning. 30 Tablet 5 02/19/2023 Active Carvedilol 3.125 MG Oral Tablet (Coreg)Indications:Hyp ertensive kidney disease with stage 3 chronic kidney disease, unspecified whether stage 3a or 3b CKD (HCC),Hypertension, uncontrolled Take 1 Tablet by mouth 2 times a day with morning and evening meals. 60 Tablet 5 03/04/2023 Active documented as of this encounter (statuses as of 06/15/2023) Active Problems Problem Noted Date Diagnosed Date [...] as of this encounter (statuses as of 06/15/2023) Resolved Problems Problem Noted Date Diagnosed Date [...] 03/25/2004 9 Overview: Per Lipid Taxonomy. FX [id number] 01/16 BENIGN HYPERTENSION 03/22/20 09 Overview: Modified per HTN Taxonomy. Dyslipidemia, goal LDL below 160 09/19/2008 Contact dermatitis and other eczema due to other specified agent 03/27/2009 Impaired fasting glucose Vitamin D deficiency 018 Abnormal results of liver function studies 11/03/2011 Senile osteoporosis 05/03/20 13 Kidney disease, chronic, sta ge III (GFR 30-59 ml/min) 03/01/2019 documented as of this encounter (statuses as of 06/15/2023) Immunizations Name Administration Dates Next Due COVID-19 mRNA, LNP-s, No Pre serve, 2-Dose Series (Moderna) 09/13/2020,08/16/2020 COVID-19, LNP-s, No Preserve , Matt-sucrose, Ages 12+ (Bfly) 11/18/2021 COVID-19, mRNA, LNP-s, PF, B ooster, 100mcg/0.5mg [...] encounter Miscellaneous Notes * Telephone Encounter - Jacqui Fonseca OSA - 03/16/2023 4:00 PM EDT Vin from [facility] called with authorization for neuropsych testing good from 03/15/23 - 09/14/23 using authorization number [id number] Approved as requested documented in this encounter Plan of Treatment Upcoming Encounters Date Type Department Care Team (Late st Contact Info) Description 06/24/2023 9:30 AM EST Nurse Only Ancillary [place] [address] [place] [address] Reynaallarmando, Nurse [address] [place] [address] 06/25/2023 6:10 PM EST Pharmacy Pharmacy, [address] [place] [address] [place] [address] 08/02/2023 2:00 PM EDT Office Visit Nephrology [address] [place] [address] Valerie Valdivia PA-C [address] [place] [address] 09/03/2023 8:30 AM EDT Imaging Radiology [address] [place] [address] 09/09/2023 8:00 AM EDT Office Visit Cardiology [address] [place] [address] Yassine Rodriguez PA-C [address] [place] [address] 12/31/2023 8:50 AM EDT Office Visit Family Medicine [address] [place] [phone] Rebeca Swift[address] [place] [address] Scheduled Procedures Name Priority Associated Diagnoses Date/Ti me COLONOSCOPY FLEXIBLE PROXIMAL DIAGNOSTIC Recall History of colon polyps Health Maintenance Due Date Last Done Comments Depression Screening 06/01/2023 06/01/2022 Albumin/Creatinine Ratio 09/22/2023 023, 05/19/2022, 10/28/2021, Additional history exists GFR 11/17/2023 05/19/2023, 05/2022, 03/04/2023, Additional history exists CKD HGB USE SMARTSET 76796 05/19/202405/19, 05/19/2023, 01/29/2023, Additional history exists CKD PHOS USE SMARTSET 24436 05/19/202407/2023, 05/19/2022, 04/29/2021, Additional history exists DTaP,Tdap,and [...] this encounter Medical Devices Implanted Type Area Block Cuber Device Identifier Shelf Expiration Date Model / Serial / Lot Lens Intraoc 24.5 - [id number] - [id number] Implanted:Qty: 1 on 03/25/2021 by Galen Chang MD at OR [facility] Left: Eye BAUSCH & LOMB 12/14/2025 [id number] / [id number] / [id number] Lens Intraoc 24.0 - [id number] - [id number] Implanted:Qty: 1 on 04/01/2021 by Galen Chang MD at OR [facility] Right: Eye BAUSCH & LOMB 08/14/2024 [id number] / [id number] / [id number] documented as of this encounter Advance Directives Documents on File Type Date Recorded Patient Custodian Manager Expl anation Advance Directives and Living Will 10/06/2017 ADVANCE DIRECTIVE / LIVING WILL Power of Gymnasium Teacher 10/06/2017 POWER OF A TTORNEY Latest Code [...] Discussed due to patient's condition Care Teams Jackhammer Splitter Operator Relationship Specialty Start Date End Date Rebeca Swift DO [address] [place] [address] [place] [address] PCP - General Internal Medicine 01/08/17 documented as of this encounter
--- OUTSIDE RECORDS SUMMARY | 2023-10-23 17:35 | External Medical Summary | Summary of Care ---
Author Name Unknown Organization [facility] Address [address] [place] [address] Phone [phone] Care Team Providers Care Circuit Board Assembler Name Role Phone Rebeca Swift Primary Care Provider Reason for Visit * Reason Comments Outpatient Testing Encounter Details Date Type Department Care Team (Late st Contact Info) Description 05/19/2023 8:40 AM EST Laboratory Laboratory [address] [place] [phone] [place] [address] Dyslipidemia, goal LDL below 70; Essential hypertension with goal blood pressure less than 140/90; Chronic kidney disease, stage 3b (HCC); Hypertensive kidney disease with stage 3b chronic kidney disease Allergies Active Allergy Reactions Criticality Noted Date Comments Oxycodone Nausea/vomiting Medium 05/02/2014 documented as of this encounter (statuses as of 05/19/2023) Medications Medication Sig Dispensed Refills Start Date [...] as of this encounter (statuses as of 05/19/2023) Active Problems Problem Noted Date Diagnosed Date Liver cyst 01/06/2023 Family history of kidney disease in brother 0 09/2021 Overview: GPA Primary osteoarthritis of both knees 11/18/2021 PFO (patent foramen ovale) 11/18/2021 Mild carotid artery disease 05/20/2021 Supraventricular tachycardia 05/20/2021 Persistent proteinuria 11/13/2020 Chronic kidney disease, [...] as of this encounter (statuses as of 05/19/2023) Resolved Problems Problem Noted Date Diagnosed Date [...] 03/25/2004 9 Overview: Per Lipid Taxonomy. FX [id number] 01/16 BENIGN HYPERTENSION 03/22/20 09 Overview: Modified per HTN Taxonomy. Dyslipidemia, goal LDL below 160 09/19/2008 Contact dermatitis and other eczema due to other specified agent 03/27/2009 Impaired fasting glucose Vitamin D deficiency 018 Abnormal results of liver function studies 11/03/2011 Senile osteoporosis 05/03/20 13 Kidney disease, chronic, sta ge III (GFR 30-59 ml/min) 03/01/2019 documented as of this encounter (statuses as of 05/19/2023) Immunizations Name Administration Dates Next Due COVID-19 mRNA, LNP-s, No Pre serve, 2-Dose Series (Moderna) 09/13/2020,08/16/2020 COVID-19, LNP-s, No Preserve , Matt-sucrose, Ages 12+ (Pfizer) 11/18/2021 COVID-19, mRNA, LNP-s, PF, B ooster, [...] Care Team (Late st Contact Info) Description 05/27/2023 6:10 PM EST Pharmacy Pharmacy, [address] [place] [address] [place] [address] 05/28/2023 8:50 AM EST Office Visit Family Medicine [address] [place] [phone] Rebeca Swift, [address] [place] [address] 06/02/2023 9:00 AM EST Nurse Only Ancillary [address] [place] [address] [place], Nurse [address] [place] [address] 08/02/2023 2:00 PM EDT Office Visit Nephrology [address] [place] [address] ZemaitisValerie PA-C [address] [place] [address] 09/03/2023 8:30 AM EDT Imaging Radiology [address] [place] [address] 09/09/2023 8:00 AM EDT Office Visit Cardiology [address] [place] [address] Yassine Rodriguez PA-C [address] [place] [address] Pending Results Name Type Priority Associated Diagnoses Date /Time LIPID PANEL WITH DIRECT LDL IF TG IS HIGH Lab Routine Dyslipidemia, goal LDL below 70 05/19/2023 8:39 AM EST COMPREHENSIVE METABOLIC PANEL Lab Routine Dyslipidemia, goal LDL below 70 Essential hypertension with goal blood pressure less than 140/90 Chronic kidney disease, stage 3b (HCC) 05/19/2023 8:39 AM EST PHOSPHORUS Lab Routine Chronic kidney disease, stage 3b (HCC) 05/19/2023 8:39 AM EST CBC WITH WBC DIFFERENTIAL Lab Routine Chronic kidney disease, stage 3b (HCC) 05/19/2023 8:39 AM EST CBC Lab Routine Chronic kidney disease, stage 3b (HCC) 05/19/2023 8:39 AM EST DIFFERENTIAL, AUTOMATED Lab Routine Chronic kidney disease, stage 3b (HCC) 05/19/2023 8:39 AM EST Scheduled Procedures Name Priority Associated Diagnoses Date/Ti me COLONOSCOPY FLEXIBLE PROXIMAL DIAGNOSTIC Recall History of colon polyps Health Maintenance Due Date Last Done Comments COVID-19 Vaccine ( season) 2023 05/28/2022, 11/18/2021, 05/20/2021, Additional history exists CKD PHOS USE SMARTSET 62191 05/19/202307/2022, 04/29/2021, 10/25/2020, Additional history exists Depression Screening 06/01/2023 06/01/2022 GFR 09/15/2023 03/17/2023, 02/14, 01/29/2023, Additional history exists Albumin/Creatinine Ratio 09/22/2023 023, 05/19/2022, 10/28/2021, Additional history exists CKD HGB USE SMARTSET 79050 01/30/202401/29, 01/29/2023, 01/07/2023, Additional history exists DTaP,Tdap,and Td Vaccines (2 - Td or Tdap) 10/30/2029 10/31/2019, 02/16/2008 Pneumococcal Vaccine: 65+ Years Completed 05/23/2015, 02/16/2008 COLONOSCOPY-EVERY 5 YRS AGES 18-100 Discontinued 12/08/2017, 12/08/2017, 12/01/2011, Additional history exists Zoster Vaccines Completed 03/02/2020, 12/15, 10/31/2019, Additional history exists Influenza Vaccine (FLU shot) Completed 01/29/2023, 03/03/2022, 01/24/2021, Additional history exists GARDASIL-HPV IMMUNIZATION SERIES Aged Out No longer eligible based on patient's age to complete this topic Hepatitis B Aged Out No longer eligi ble based on patient's age to complete this topic MENINGOCOCCAL (MENACTRA/MENVEO) Aged Out No longer eligible based on patient's age to complete this topic documented as of this encounter Medical Devices Implanted Type Area Dial Maker Device Identifier Shelf Expiration Date Model / Serial / Lot Lens Intraoc 24.5 - [id number] - [id number] Implanted:Qty: 1 on 03/25/2021 by Galen Chang MD at OR [facility] Left: Eye BAUSCH & LOMB 12/14/2025 [id number] / [id number] / [id number] Lens Intraoc 24.0 - [id number] - [id number] Implanted:Qty: 1 on 04/01/2021 by Galen Chang MD at [facility] Right: Eye BAUSCH & LOMB 08/14/2024 [id number] / [id number] / [id number] documented as of this encounter Visit Diagnoses Diagnosis Dyslipidemia, goal LDL below 70 Other and unspecified hyperlipidemia Essential hypertension with goal blood pressure less than 140/90 Chronic kidney disease, stage 3b (HCC) Hypertensive kidney disease with stage 3b chronic kidney disease documented in this encounter Advance Directives Documents on File Type Date Recorded Patient Tenter Expl anation Advance Directives and Living Will 10/06/2017 ADVANCE DIRECTIVE / LIVING WILL Power of Powder Mill Operator 10/06/2017 POWER OF A TTORNEY Latest Code [...] Discussed due to patient's condition Care Teams Circuit Board Assembler Relationship Specialty Start Date End Date Rebeca Swift DO [address] [place] [address] [place] [address] PCP - General Internal Medicine 01/08/17 documented as of this encounter
--- OUTSIDE RECORDS SUMMARY | 2023-10-23 17:35 | External Medical Summary | Summary of Care ---
Author Name Unknown Organization [facility] Address [address] [place] [address] Phone [phone] Care Team Providers Care Commercial Airline Pilot Name Role Phone Rebeca Swift Primary Care Provider Reason for Visit * Reason Comments Appointment [facility] Discharge (HTN) Encounter Details Date Type Department Care Team ([facility] st Contact Info) Description 07/23/2023 6:10 PM [facility] Pharmacy Pharmacy, [address] [place] [address] [place] [address] Essential hypertension with goal blood pressure less than 140/90* Allergies Active Allergy Reactions Criticality Noted Date Comments Oxycodone Nausea/vomiting Medium 05/02/2014 documented as of this encounter (statuses as of 07/22/2023) Medications Medication Sig Dispensed Refills Start Date [...] as of this encounter (statuses as of 07/22/2023) Active Problems Problem Noted Date Diagnosed Date [...] as of this encounter (statuses as of 07/22/2023) Resolved Problems Problem Noted Date Diagnosed Date [...] 03/25/2004 9 Overview: Per Lipid Taxonomy. FX [id number] 01/16 BENIGN HYPERTENSION 03/22/20 09 Overview: Modified per HTN Taxonomy. Dyslipidemia, goal LDL below 160 09/19/2008 Contact dermatitis and other eczema due to other specified agent 03/27/2009 Impaired fasting glucose Vitamin D deficiency 018 Abnormal results of liver function studies 11/03/2011 Senile osteoporosis 05/03/20 13 Kidney disease, chronic, sta ge III (GFR 30-59 ml/min) 03/01/2019 documented as of this encounter (statuses as of 07/22/2023) Immunizations Name Administration Dates Next Due COVID-19 [...] of this encounter Progress Notes * Dana Jim PHARM Tech - 07/22/2023 3:41 PM EST Doris Pretty has not contacted the clinic to schedule/reschedule an appointment for HTN managementper referral from PCP despite multiple requests to do so by our team. Patient is discharged from [facility] services at this time. Thank you, Dana Jim Feature Writer [facility] ([facility]) (Formerly Telepharmacy) 07/22/2023, 3:41 PM documented in this encounter Plan of Treatment Upcoming Encounters Date Type Department Care Team (Late st Contact Info) Description 08/02/2023 2:00 PM EDT Office Visit Nephrology [address] [place] [address] Valerie Valdivia PA-C [address] [place] [address] 09/03/2023 8:30 AM EDT Imaging Radiology [address] [place] [address] 09/09/2023 8:00 AM EDT Office Visit Cardiology [address] [place] [address] Yassine Rodriguez PA-C [address] [place] [address] 12/31/2023 8:50 AM EDT Office Visit Family Medicine [address] [place] [phone] [address] [place] [address] Scheduled Procedures Name Priority Associated Diagnoses Date/Ti me COLONOSCOPY FLEXIBLE PROXIMAL DIAGNOSTIC Recall History of colon polyps Health Maintenance Due Date Last Done Comments Depression Screening 06/01/2023 06/01/2022 Albumin/Creatinine Ratio 09/22/20232 023, 05/19/2022, 10/28/2021, Additional history exists GFR 11/17/2023 05/19/2023, 1105/2022, 03/04/2023, Additional history exists CKD HGB USE SMARTSET 62449 05/19/202405/19, 05/19/2023, 01/29/2023, Additional history exists CKD PHOS USE SMARTSET 39581 05/19/202407/2023, 05/19/2022, 04/29/2021, Additional history exists DTaP,Tdap,and [...] this encounter Medical Devices Implanted Type Area Machine Adjuster Helper Device Identifier Shelf Expiration Date Model / Serial / Lot Lens Intraoc 24.5 - [id number] - [id number] Implanted:Qty: 1 on 03/25/2021 by Galen Chang MD at OR [facility] Left: Eye BAUSCH [employer] LOMB 12/14/2025 [id number] / [id number] / [id number] Lens Intraoc 24.0 - [id number] - [id number] Implanted:Qty: 1 on 04/01/2021 by Galen Chang MD at OR [facility] Right: Eye BAUSCH & LOMB 08/14/2024 [id number] / [id number] / [id number] documented as of this encounter Visit Diagnoses Diagnosis Essential hypertension with goal blood pressure less than 140/90- Primary documented in this encounter Advance Directives Documents on File Type Date Recorded Patient Geomagnetist Expl anation Advance Directives and Living Will 10/06/2017 ADVANCE DIRECTIVE / LIVING WILL Power of Restuarant Crew Worker 10/06/2017 POWER OF A TTORNEY Latest Code [...] Discussed due to patient's condition Care Teams Commercial Airline Pilot Relationship Specialty Start Date End Date Rebeca Swift DO [address] [place] [address] [place] [address] PCP - General Internal Medicine 01/08/17 documented as of this encounter
--- OUTSIDE RECORDS SUMMARY | 2023-10-23 17:35 | External Medical Summary | Summary of Care ---
Author Name Unknown Organization [facility] [address] [facility] [address] Phone [phone] Care Team Providers Care Ticket Manager Name Role Phone Rebeca Swift Primary Care Provider Reason for Visit * Reason Comments Appointment Encounter Details Date Type Department Care Team (Late st Contact Info) Description 05/27/2023 6:10 PM [facility] Pharmacy Pharmacy, [address] [place] [address] [place] [address] Essential hypertension with goal blood pressure less than 140/90* Allergies Active Allergy Reactions Criticality Noted Date Comments Oxycodone Nausea/vomiting Medium 05/02/2014 documented as of this encounter (statuses as of 05/27/2023) Medications Medication Sig Dispensed Refills Start Date [...] as of this encounter (statuses as of 05/27/2023) Active Problems Problem Noted Date Diagnosed Date [...] as of this encounter (statuses as of 05/27/2023) Resolved Problems Problem Noted Date Diagnosed Date [...] 03/25/2004 9 Overview: Per Lipid Taxonomy. FX [id number] 01/16 BENIGN HYPERTENSION 03/22/20 09 Overview: Modified per HTN Taxonomy. Dyslipidemia, goal LDL below 160 09/19/2008 Contact dermatitis and other eczema due to other specified agent 03/27/2009 Impaired fasting glucose Vitamin D deficiency 018 Abnormal results of liver function studies 11/03/2011 Senile osteoporosis 05/03/20 13 Kidney disease, chronic, sta ge III (GFR 30-59 ml/min) 03/01/2019 documented as of this encounter (statuses as of 05/27/2023) Immunizations Name Administration Dates Next Due COVID-19 [...] as of this encounter Progress Notes * Jeannette Cortez PHARM Tech - 05/27/2023 8:55 AM EST Patient Phone Numbers Left message on patients answering machine to schedule MTD appointment for blood pressure management. [facility] message sent --no Clinic will follow up again in 4 week(s). [Attempt # 2] Thank you, Jeannette Cortez Supervisor Laboratory [facility] ([facility]) (formerly Telepharmacy) [phone] 05/27/2023,9:00 AM documented in this encounter Plan of Treatment Upcoming Encounters Date Type Department Care Team (Late st Contact Info) Description 05/28/2023 8:50 AM EST Office Visit Family Medicine [address] [place] [phone] [address] [place] [address] 06/02/2023 9:00 AM EST Nurse Only Ancillary [address] [place] [address] [place], Nurse [address] [place] [address] 06/25/2023 6:10 PM EST Pharmacy Pharmacy, [address] [place] [address] [place] [address] 08/02/2023 2:00 PM EDT Office Visit Nephrology [address] [place] [address] ZemaitisValerie PA-C [address] [facility] [address] 09/03/2023 8:30 AM EDT Imaging Radiology [address] [place] [address] 09/09/2023 8:00 AM EDT Office Visit Cardiology [address] [place] [address] Yassine Rodriguez PA-C [address] [place] [address] Scheduled Procedures Name Priority Associated Diagnoses Date/Ti me COLONOSCOPY FLEXIBLE PROXIMAL DIAGNOSTIC Recall History of colon polyps Health Maintenance Due Date Last Done Comments COVID-19 Vaccine ( season) 2023 05/28/2022, 11/18/2021, 05/20/2021, Additional history exists Depression Screening 06/01/2023 06/01/2022 Albumin/Creatinine Ratio 09/22/2023 023, 05/19/2022, 10/28/2021, Additional history exists GFR 11/17/2023 05/19/2023, 1105/2022, 03/04/2023, Additional history exists CKD HGB USE SMARTSET 76388 05/19/202405/19, 05/19/2023, 01/29/2023, Additional history exists CKD PHOS USE SMARTSET 53384 05/19/202407/2023, 05/19/2022, 04/29/2021, Additional history exists DTaP,Tdap,and [...] this encounter Medical Devices Implanted Type Area Bingo Caller Device Identifier Shelf Expiration Date Model / Serial / Lot Lens Intraoc 24.5 - [id number] - [id number] Implanted:Qty: 1 on 03/25/2021 by Galen Chang MD at [facility] Left: Eye BAUSCH & LOMB 12/14/2025 [id number] / [id number] / [id number] Lens Intraoc 24.0 - [id number] - [id number] Implanted:Qty: 1 on 04/01/2021 by Galen Chang MD at [facility] Right: Eye BAUSCH & LOMB 08/14/2024 [id number] / [id number] / [id number] documented as of this encounter Visit Diagnoses Diagnosis Essential hypertension with goal blood pressure less than 140/90- Primary documented in this encounter Advance Directives Documents on File Type Date Recorded Patient Cup Trimming Machine Operator Expl anation Advance Directives and Living Will 10/06/2017 ADVANCE DIRECTIVE / LIVING WILL Power of Plant Specialist 10/06/2017 POWER OF A TTORNEY Latest [...] Discussed due to patient's condition Care Teams Ticket Manager Relationship Specialty Start Date End Date Rebeca Swift DO [address] [place] [address] [place] [address] PCP - General Internal Medicine 01/08/17 documented as of this encounter
--- OUTSIDE RECORDS SUMMARY | 2023-10-23 17:36 | External Medical Summary ---
Author Name Unknown Address Unknown Organization K01:LABORATORY [facility] - [address] [facility] [address] Laboratory Report Ordering Provider Test Date Status SINGH KRAUS 05/19/2023 08:39:22 Final Observation Date Value Abnormality Reference (Units ) Status SYNC LEUKOCYTES IN BLOOD BY AUTOMATED COUNT 05/19/2023 08:39:22 5.39 4.00-10.80 (K/uL) Final Segs 05/19/2023 08:39:22 51.0 40.0-75.0 (%) Final Lymphs % 05/19/2023 08:39:22 36.2 18.0-42.0 (%) Final Monos 05/19/2023 08:39:22 8.7 1.0-11.0 (%) Final Eosinophils 05/19/2023 08:39:22 3.0 0.0-6.0 (%) Final Basos 05/19/2023 08:39:22 0.9 0.0-2.0 (%) Final Immature Granulocyte, Percent 05/19/2023 08:39:22 0.2 0.0-2.0 (%) Final Absolute Segs 05/19/2023 08:39:22 2.75 1.80-7.70 (K/uL) Final Lymphs, absolute 05/19/2023 08:39:22 1.95 1.00-4.80 (K/ul) Final Monos, Abs 05/19/2023 08:39:22 0.47 0.00-1.10 (K/uL) Final Eos, Abs 05/19/2023 08:39:22 0.16 0.00-0.70 (K/uL) Final Basos, Abs 05/19/2023 08:39:22 0.05 0.00-0.20 (K/uL) Final Immature Granulocytes, Number 05/19/2023 08:39:22 0.01 0.00-0.20 (K/uL) Final Performing Location LABORATORY [facility] - [address] [facility] [address]
--- OUTSIDE RECORDS SUMMARY | 2023-10-23 17:36 | External Medical Summary ---
Author Name Unknown Address Unknown Organization K01:LABORATORY [facility] [place] - [address] [facility] [address] Laboratory Report Ordering Provider Test Date Status SINGH KRAUS 05/19/2023 08:39:22 Final Observation Date Value Abnormality Reference (Units ) Status BUN 05/19/2023 08:39:22 19 6-20 (mg/dL) Final Creatinine 05/19/2023 08:39:22 1.2 Above high normal 0.5-1.0 (mg/dL) Final Glomerular filtration rate/1.73 sq M.predicted [Volume Rate/Area] in Serum, Plasma or Blood by Creatinine-based formula (CKD-EPI) 05/19/2023 08:39:22 44 Below low normal >=60 (mL/min) Final eGFR is calculated based on the CKD-EPI 2020 equation SODIUM 05/19/2023 08:39:22 143 135-146 (m mol/L) Final Potassium 05/19/2023 08:39:22 3.6 3.5-5.1 (m mol/L) Final Cl 05/19/2023 08:39:22 103 98-107 (mm ol/L) Final CO2 05/19/2023 08:39:22 28 22-32 (mmo l/L) Final Anion gap 05/19/2023 08:39:22 12 7-15 (mmol /L) Final Glucose 05/19/2023 08:39:22 110 70-120 (mg /dL) Final Albumin 05/19/2023 08:39:22 4.6 3.8-5.0 (g /dL) Final AST (Aspartate aminotransferase) 05/19/2023 08:39:22 26 10-35 (U/L) Final Alk Phos 05/19/2023 08:39:22 70 35-130 (U/ L) Final Bilirubin, Total 05/19/2023 08:39:22 0.7 <=1 .2 (mg/dL) Final Calcium 05/19/2023 08:39:22 9.8 8.4-10.2 ( mg/dL) Final Protein 05/19/2023 08:39:22 6.8 6.0-8.3 (g /dL) Final ALT (Alanine aminotransferase) 05/19/2023 08:39:22 31 10-35 (U/L) Final Performing Location LABORATORY [facility] [place] - [facility] [address] [facility] [address]
--- OUTSIDE RECORDS SUMMARY | 2023-10-23 17:36 | External Medical Summary ---
Author Name Unknown Address Unknown Organization K01:LABORATORY [facility] [place] - [facility] [address] [facility] [address] Laboratory Report Ordering Provider Test Date Status SINGH KRAUS 05/19/2023 08:39:22 Final Observation Date Value Abnormality Reference (Units ) Status WBC, Total 05/19/2023 08:39:22 5.39 4.00-10.80 (K/uL) Final RBC 05/19/2023 08:39:22 4.38 3.85-5.15 (M/uL) Final Hemoglobin 05/19/2023 08:39:22 13.4 12.0-15.3 (g/dL) Final HCT 05/19/2023 08:39:22 42.3 36.0-45.2 (%) Final MCV 05/19/2023 08:39:22 96.6 81.5-97.5 (fL) Final MCH 05/19/2023 08:39:22 30.6 27.0-34.0 (pg) Final MCHC 05/19/2023 08:39:22 31.7 32.0-36.0 (g/dL) Final RDW 05/19/2023 08:39:22 13.5 11.5-15.5 (%) Final Platelets 05/19/2023 08:39:22 175 140-400 (K/uL) Final MPV 05/19/2023 08:39:22 10.2 6.6-11.1 (fL) Final Nucleated erythrocytes/100 leukocytes [Ratio] in Blood by Automated count 05/19/2023 08:39:22 0 <=0 (/100 WBCs) Final Performing Location LABORATORY [facility] [place] - [address] [facility] [address]
--- OUTSIDE RECORDS SUMMARY | 2023-10-23 17:36 | External Medical Summary ---
Author Name Unknown Address Unknown Organization K01:[facility] [place] [address] [facility] [address] Laboratory Report Ordering Provider Test Date Status SINGH KRAUS 05/19/2023 08:39:22 Final Observation Date Value Abnormality Reference (Units ) Status Triglyceride 05/19/2023 08:39:22 73 <=174 ( mg/dL) Final Triglyceride Reference Range s (mg/dL):
<150 Acceptable
150-174 Borderline high
175-499 High
>=500 Very high Cholesterol 05/19/2023 08:39:22 158 <200 (mg /dL) Final Total Cholesterol Reference Ranges (mg/dL):
<200 Desirable
200-239 Borderline high
>=240 High HDL 05/19/2023 08:39:22 69 >49 (mg/dL ) Final HDL Cholesterol Reference Ra nges (mg/dL):
>=60 High (Desirable)
<50 Low (Undesirable) For Females
<40 Low (Undesirable) For Males NON-HDL CHOLESTEROL 05/19/2023 08:39:22 89 <=159 (mg/dL) Final Non-HDL Cholesterol Referenc e Range (mg/dL):
<100 Target level for high risk ASCVD patient
<130 Optimal for general population
130-159 Near optimal for general population
160-189 Borderline High
190-219 High
>=220 Very High LDL, (calculated) 05/19/2023 08:39:22 74 <= 129 (mg/dL) Final LDL Cholesterol Reference Ra nges (mg/dL):
<70 Target level for high risk ASCVD patient
<100 Optimal for general population
100-129 Near optimal for general population
130-159 Borderline high
160-189 High
>=190 Very high Performing Location LAB[facility] [place] - [address] [facility] [address]
[2023-10-23] MEDS: amLODIPine BESYLATE 5 MG TAB PO ONE (18:00)
[2023-10-23] MEDS: carvediloL 3.125 MG TAB PO SCH (20:54)
[2023-10-23 21:10] LABS: BUN Creatinine Ratio 8.3 (10-20); Calcium 8.6 mg/dl (8.6-10.3); Creatinine Clr Calc Pharmacy 33.1 ml/min; Est GFR (African American) 49.4 ml/min; Est GFR (Non-African American) 42.7 ml/min; Troponin I High Sensitivity 18.8 pg/ml (0-14)
[2023-10-23] MEDS: POTASSIUM CHLORIDE PWD 20 MEQ PACK PO STA (22:03)
[2023-10-23] MEDS: ACETAMINOPHEN 325 MG TAB PO PRN (22:18)
--- NOTE | 2023-10-24 07:15 | Electrocardiogram Report ---
Test Reason : Blood Pressure : / mmHG Vent. Rate : 074 BPM Atrial Rate : 074 BPM P-R Int : 192 ms QRS Dur : 154 ms QT Int : 434 ms P-R-T Axes : 057 -49 112 degrees QTc Int : 481 ms Normal sinus rhythm Left axis deviation Left bundle branch block Abnormal ECG When compared with ECG of 28-NOV-2022 13:32, Left bundle branch block is now Present Confirmed by Angelo Myers ([id number]) on 10/24/2023 7:14:46 AM Referred By: Roni Bello Confirmed By:Ilir Myers
[2023-10-24 07:49] LABS: Hematocrit (blood only) 32.7 % (37.0-47.0); Hemoglobin 11.2 g/dl (12.0-16.0); Mean Corpuscular Hemoglobin 31.5 pg (25.0-34.0); Mean Corpuscular Hgb Conc 34.3 g/dL (32.0-36.0); Mean Corpuscular Volume 91.9 fL (80.0-100.0); Mean Platelet Volume 9.8 fL (9.4-12.4); Platelet Count 125 K/uL (130-400); RDW Coefficient of Variation 13.6 % (11.5-14.5); RDW Standard Deviation 45.4 fL (36.4-46.3); Red Blood Count 3.56 M/uL (4.20-5.40); White Blood Count 4.68 K/ul (4.8-10.8)
[2023-10-24 08:29] LABS: BUN Creatinine Ratio 7.8 (10-20); Calcium 8.4 mg/dl (8.6-10.3); Creatinine Clr Calc Pharmacy 34.2 ml/min; Est GFR (African American) 51.5 ml/min; Est GFR (Non-African American) 44.4 ml/min; Magnesium 1.8 mg/dl (1.7-2.4); Potassium 3.1 mmol/L (3.5-5.1)
[2023-10-24 08:32] LABS: Folate (Folic Acid),Ser orPlas > 22.30 ng/ml (>5.38)
[2023-10-24 08:33] LABS: Vitamin B12 671 pg/ml (180-914)
[2023-10-24] MEDS: ASPIRIN 81 MG CHEW PO SCH (08:38)
[2023-10-24] MEDS: DOCUSATE SODIUM 100 MG CAP PO PRN (08:38)
[2023-10-24] MEDS: SPIRONOLACTONE 25 MG TAB PO SCH ×2 (08:39→20:03)
[2023-10-24] MEDS: TOCOPHERYL, DL-ALPHA 400 UNITS 180 MG CAP PO SCH (08:39)
[2023-10-24] MEDS: POLYETHYLENE (MIRALAX) 17 GM PACK PO PRN (08:39)
[2023-10-24] MEDS: POTASSIUM CHLORIDE CRTAB 20 MEQ TABCR PO SCH (08:39)
[2023-10-24] MEDS: amLODIPine BESYLATE 5 MG TAB PO SCH (08:40)
[2023-10-24] MEDS: ROSUVASTATIN CALCIUM 10 MG TAB PO SCH (08:40)
[2023-10-24] MEDS: VITAMIN B COMPLEX TAB PO SCH (08:40)
[2023-10-24] MEDS: FERROUS SULFATE 325 MG TAB PO SCH (08:40)
[2023-10-24] MEDS: ASCORBIC ACID 500 MG TAB PO SCH (08:40)
[2023-10-24] MEDS: lisinopril 20 MG TAB PO SCH (08:40)
[2023-10-24] MEDS: CHOLECALCIFEROL 25 MCG (1000 UNITS) TAB PO SCH (08:40)
--- NOTE | 2023-10-24 12:03 | Cardiology Progress Note ---
Date of Service October 24, 2023 Assessment & Plan (1) Hypokalemia: (2) Fatigue: (3) New onset left bundle branch block (LBBB): (4) Elevated troponin: (5) Hypertension: Plan 82 year old female admitted with marked hypokalemia, 2.3 mmol/L on presentation. Patient receiving supplemental potassium. Nephrology evaluation pending. New left bundle branch block. Asymptomatic. No ACS. No symptoms/evidence of endocarditis or myocarditis. Suspect conduction system disease due to hyp ertension and aging process. TTE without wall motion abnormality, EF 55-60%. Telemetry benign. Elevated Troponin. Suspect secondary to hypertension (BP 194/89 on presentation) in the setting of chronic kidney disease and marked hypokalemia. No symptoms to suggest an acute coronary syndrome. Hypertension. Increase lisinopril to 40 mg/day. Amlodipine added this admission. Continue carvedilol and spironolactone. Dyslipidemia. Continue rosuvastatin 40 mg/day. PFO. Continue aspirin 81 mg/day Please contact with any questions or concerns. I spent a total of 23 minutes on the date of service in preparation, delivery, and documentation of the care provided to this patient excluding any time spent in the performance of separately billed services. This visit was a split-shared visit with the substantive portion of the medical decision making performed by the supervising manager category/billing provider. Admission and Anticipated Discharge Date Admission Date: October 23, 2023 Supervising Physician Co-Signing Physician Notes I have reviewed the advanced practitioner's documentation on the date of service referenced in note, and I agree with, and take responsibility for the plan of care. 82-year-old with history of chronic kidney disease hypertension presents with hypokalemia and hypertensive emergency. Elevated troponin secondary to demand supply ischemia. Left bundle branch block which is new echocardiogram no wall motion abnormalities. Cardiology outpatient follow-up please call with questions we will sign off I spent a total of [10] minutes coordinating, documenting, and providing care for this patient excluding time spent in the performance of separately billed services or time spent by another provider. Subjective Patient seen and examined. Chart, medications, and telemetry reviewed. Feeling okay. No chest pain. No palpitations. No shortness of breath. Potassium 3.1 this AM High-sensitivity troponin: 24.3, 18.8 Resting echocardiography on October 23, 2023 revealed the following: Normal LV systolic function, EF 55 to 60%. Mild concentric LVH. Normal RV size and function. Mild tricuspid regurgitation. Normal IVC size and collapsibility indicating a normal right atrial pressure of 3 mmHg. + PFO. Telemetry: Sinus in the 60s to 80s Review of Systems Review of Systems: Complete Review of Systems is as stated above, negative, or noncontributory Physical Exam Physical Exam: Examined in ER, Room C08 General: A&Ox3. NAD. Skin: + Pallor HENT: Normocephalic. Atraumatic. Eyes: PER. Conjunctiva pink, sclera clear. Neck: Left carotid bruit. No JVD. Heart: RRR, 70 bpm. + Gallop. Soft systolic ejection murmur. No diastolic murmur. No rub. Lungs: Clear to auscultation. Abdomen: +BS. Soft. Nontender. No masses or organomegaly. Extremities: No clubbing, cyanosis, or peripheral edema. Neuro: No focal deficit. Results & Data Vital Signs (Past 12 Hours) Vital Signs Temp Pulse Resp BP Pulse Ox O2 Del Method 10/24/23 11:31 36.8 C 81 18 146/82 H 95 Room Air 10/24/23 07:37 36.6 C 65 18 164/72 H 95 Room Air 10/24/23 03:14 36.7 C 74 18 110/74 94 Room Air Laboratory Results Cardiac Enzymes 10/23/23 Range/Units 20:21 Troponin I High Sens 18.8 H D (0-14) pg/ml CBC 10/24/23 Range/Units 06:47 WBC 4.68 L (4.8-10.8) K/ul RBC 3.56 L (4.20-5.40) M/uL Hgb 11.2 L (12.0-16.0) g/dl Hct 32.7 L (37.0-47.0) % Plt Count 125 L (130-400) K/uL Comprehensive Metabolic Panel 10/23/23 10/24/23 Range/Units 20:21 06:47 Sodium 143 144 (136-145) mmol/L Potassium 3.0 L D 3.1 L (3.5-5.1) mmol/L Chloride 109 H 112 H (98-107) mmol/L Carbon Dioxide 29 27 (21-32) mmol/L BUN 10 9 (6-23) mg/dl Creatinine 1.20 1.16 (0.6-1.2) mg/dl Glucose 115 H 108 H (70-99(Fasting)) mg/dl Calcium 8.6 8.4 L (8.6-10.3) mg/dl Intake and Output 10/23/23 10/24/23 10/24/23 22:59 06:59 14:59 Intake Total 100 / 450 200 / 450 Balance 100 / 450 200 / 450 Intake: IV 100 / 400 200 / 400 Potassium Chloride / Wtr 10 meq 100 / 400 200 / 400 In 100 ml @ 100 mls/hr IV Q1H [facility] Rx#:[id number] Other: # Unmeasured Voids 2 1 Weight 56 kg Weight Measurement Method Standing Scale
--- NOTE | 2023-10-24 13:36 | Hospitalist Progress Note ---
Date of Service October 24, 2023 Assessment & Plan (1) Hypokalemia: Plan: This is an 82yo F with a PMH of SVT, HTN, CAD, CKD III, history of PFO, dyslipidemia and other medical problems listed below who was directed in from PCP for abnormal outpatient labwork. Serum potassium of 2.3 on admission Was instructed by nephro last fall to discontinue potassium supplement. Lisinopril dose icreased to 20mg daily at that time and was started on spironolactone 25mg Repeat potassium level of 3.1 today Patient denies any diarrhea, nausea or vomiting suggesting GI loss. Likely related to increased urinary loss/decreased intake. Lisinopril increased by cardiology to 40 mg once a day Supplement potassium chloride 40 mEq 3 times a day Continue spironolactone Nephrology on board; appreciate recommendation (2) CKD (chronic kidney disease), stage III: Plan: Creatinine at baseline Monitor with daily BMP (3) Hypertension: Plan: Continue carvedilol, spironolactone, lisinopril (4) Left bundle branch block (LBBB): Plan: Noted on EKG today, not on previous outpatint EKGs - no CP EKG with NSR, LAD, LBBB which appears new Echocardiogram shows EF of 55 to 60% with mild concentric LVH Monitor on telemetry (5) CAD (coronary artery disease): Plan: 2D echo from 04/08 with preserved EF, no wall motion abnormalities or significant valvular disease Repeat echo as above Continue ASA, statin, carvedilol (6) Fatigue: Plan: Endorsing decreased energy lately TSH normal Continue iron and Vit D supplement DVT Ppx: SQ heparin Code status: FULL PCP: Jamison Dispo: admitted to PCU Please note the above document was generated using voice recognition software. It may contain grammatical, syntax or spelling errors. Any formal questions or concerns about the content, text or information contained within the body of this dictation should be directly addressed to the provider for clarification Admission and Anticipated Discharge Date Admission Date: October 23, 2023 Subjective Patient seen and examined. She is comfortably sitting up on the bed; not in distress. No significant events overnight Review of Systems Review of Systems: All systems reviewed & are unremarkable except as noted in Subjective Physical Exam Physical Exam: Constitutional: Alert oriented x 3; not in distress. Respiratory: normal respiratory effort, lungs clear to auscultation, no wheeze, rales, rhonchi. Normal insp/exp effort, no accessory muscle use Cardiovascular: RRR, no murmur, no edema Vessels: no JVD or carotid bruit Chest: normal inspection of chest Abdomen: normal bowel sounds, soft, nontender, no hepatosplenomegaly Musculoskeletal: no cyanosis or clubbing, extremities motor strength 5/5 Skin: no rashes, warm and dry normal turgor Neurologic: PERRL, EOMI, accommodation nl, no face palsy, no dysarthria CN's II- XI intact bilaterally and moves all extremities Psychiatric: A+Ox3, euthymic affect Results & Data Results & Data Vital Signs (Past 12 Hours) Vital Signs Temp Pulse Resp BP Pulse Ox O2 Del Method 10/24/23 11:31 36.8 C 81 18 146/82 H 95 Room Air 10/24/23 07:37 36.6 C 65 18 164/72 H 95 Room Air 10/24/23 03:14 36.7 C 74 18 110/74 94 Room Air
--- NOTE | 2023-10-24 15:57 | Nephrology Consultation ---
Date of Consultation October 24, 2023 Assessment & Plan (1) Hypokalemia: has h/o this for many years and was on Supplement. Aldactone started and Stacie raised in and then kcl stopped. had low normal even without supplement as of . Now admitted with profound hypokalemia. Needing lot of Kcl supplement and is rising. Continue kcl 40 tid. Also lisinoril 40 and aldactone--raise the dose to 25 bid. will like to check fractional excretion of k--check urine K, urine creat and a BMP and mag. her food intake is very good and is also taking lot of high K food/drink (2) CKD (chronic kidney disease), stage III: Current creat is at baseline at 1.2. CKD 3A from HTN/AGe (3) New onset left bundle branch block (LBBB): Cardiology note reviewed. (4) Hypertension: very high on admission but better now. on lisinopril 40 and amlo added (5) Asymptomatic microscopic hematuria: Seems trivial and is not of sig clinical significance. No e/o UTI. Plan Time spent 52 Mins. History of Present Illness Reason for Consultation: Critical Hypokalemia Attending Physician: Zachery Hardy MD History of Present Illness 82/F followed by Dr Easley and Valerie ( PA-C) with SVT, HTN, CAD, CKD III ( baseline creat lately around 1.4), history of PFO, dyslipidemia and other medical problems listed below was sent to ED by PCP for abnormal outpatient lab work done 10/22/2023 showing critical low K of 2.4. ED labs showed k 2.3 and also new onset LBBB noted. Initially Patient was directed to primary care from nephrology for microscopic hematuria/bacteriuria for evaluation of UTI and for that was seen on 10/22/2023. Micro hematuria and bacteria noted on outpatient urine appear to chronic. Denies any urinary symptoms. Patient states she has been feeling well and denies any lightheadedness, palpitations, chest pain, nausea or vomiting or diarrhea. was told to stop taking potassium supplement in March 2023 as directed by nephrology. BMP in without k supplement still showed normal k of 3.6. After that the next BMP was from October 21. She is taking all other medications as prescribed. Has been taking spironolactone since March 2023 with Lisinopril. her Intake of food is high as per patient and she eats/drinks lot of high K food. ROS--12 Systems reviewed and negative. Physical Exam Physical Exam: Awake and alert. No distress HENT: Normocephalic. Atraumatic. MM moist. Neck: Suple No JVD. Heart: RRR, Soft systolic ejection murmur. No edema Lungs: Clear to auscultation. Abdomen: Soft. Nontender. Extremities: No edema. Neuro: No focal deficit. Allergies Allergy/AdvReac Type Severity Reaction Status Date / Time oxycodone Allergy Nausea Verified 11/28/22 13:51 Home Medications Medication Instructions Recorded Confirmed Type aspirin 81 mg chewable tablet 81 mg PO DAILY 11/28/22 10/23/23 History lisinopril 20 mg tablet 20 mg PO DAILY 11/28/22 10/23/23 History docusate sodium 100 mg capsule 100 mg PO BID PRN constipation #60 11/30/22 10/23/23 Rx caps ferrous sulfate 325 mg (65 mg 325 mg PO QAM #30 tabs 11/30/22 10/23/23 Rx iron) tablet,delayed release polyethylene glycol 3350 17 gram 17 g PO DAILY PRN constipation #30 11/30/22 10/23/23 Rx oral powder packet (Miralax) ea ascorbic acid (vitamin C) 500 mg 500 mg PO DAILY 10/23/23 10/23/23 History tablet (Vitamin C) carvedilol 3.125 mg tablet 3.125 mg PO BID 10/23/23 10/23/23 History cholecalciferol (vitamin D3) 50 50 mcg PO DAILY 10/23/23 10/23/23 History mcg (2,000 unit) tablet (Vitamin D3) coQ10 (ubiquinol) 200 mg capsule 200 mg PO DAILY 10/23/23 10/23/23 History loratadine 10 mg tablet 10 mg PO DAILY PRN allergies 10/23/23 10/23/23 History rosuvastatin 40 mg tablet 40 mg PO DAILY 10/23/23 10/23/23 History spironolactone 25 mg tablet 25 mg PO DAILY 10/23/23 10/23/23 History vitamin B complex 1 tab PO DAILY 10/23/23 10/23/23 History vitamin E 400 unit tablet 400 unit PO DAILY 10/23/23 10/23/23 History Patient History Surgical History S/P appendectomy H/O: hysterectomy S/P cholecystectomy Family History Other Alzheimer disease Colorectal cancer Social History Smoking Status: Never smoker Second Hand Exposure: No; Do You Dip or Chew Tobacco: No; Tobacco Cessation Education Requested by Patient: No Hx Alcohol Use: No Hx Substance Use: No Preferred Language: Bengali Communication Ability: Effective Senior Health Physics Technician Required: No Beliefs That Will Affect Care: None Current Living Situation: Alone Current Living Situation Comment: alone, son on weekends Other Information That Helps Us Care for You: No Feels Safe at Home: Yes Safety Concerns: Feels Safe At This Time Assistive Devices: Glasses Results & Data Vital Signs (Past 12 Hours) Vital Signs Temp Pulse Resp BP Pulse Ox O2 Del Method 10/24/23 15:27 36.8 C 86 18 142/61 H 94 Room Air 10/24/23 11:31 36.8 C 81 18 146/82 H 95 Room Air 10/24/23 07:37 36.6 C 65 18 164/72 H 95 Room Air Laboratory Results reviewed Diagnostic Findings reviewed
[2023-10-24 17:18] LABS: Albumin Level 3.6 gm/dl (3.4-5.0); Creatinine Clr Calc Pharmacy 24.5 ml/min; Est GFR (African American) 34.4 ml/min; Est GFR (Non-African American) 29.7 ml/min; Magnesium 1.8 mg/dl (1.7-2.4); Phosphorus 1.6 mg/dl (2.5-4.9)
[2023-10-24 18:19] LABS: Potassium Random Urine 16.2 mmol/L
[2023-10-24 18:27] LABS: Creatinine Urine Random 18.9 mg/dl
[2023-10-25] MEDS: lisinopril 40 MG TAB PO SCH (07:30)
[2023-10-25 08:02] LABS: Hematocrit (blood only) 34.9 % (37.0-47.0); Hemoglobin 11.7 g/dl (12.0-16.0); Mean Corpuscular Hemoglobin 31.2 pg (25.0-34.0); Mean Corpuscular Hgb Conc 33.5 g/dL (32.0-36.0); Mean Corpuscular Volume 93.1 fL (80.0-100.0); Mean Platelet Volume 9.6 fL (9.4-12.4); Platelet Count 145 K/uL (130-400); RDW Coefficient of Variation 13.8 % (11.5-14.5); RDW Standard Deviation 46.9 fL (36.4-46.3); Red Blood Count 3.75 M/uL (4.20-5.40)
[2023-10-25] MEDS ORDERED: POTASSIUM PHOS 3 MMOL/1 ML INFUSION IV STA (08:02)
[2023-10-25 08:10] LABS: BUN Creatinine Ratio 10.6 (10-20); Calcium 9.5 mg/dl (8.6-10.3); Creatinine Clr Calc Pharmacy 24.9 ml/min; Est GFR (African American) 34.6 ml/min; Est GFR (Non-African American) 29.9 ml/min; Magnesium 1.9 mg/dl (1.7-2.4); Potassium 3.9 mmol/L (3.5-5.1)
[2023-10-25] MEDS: SODIUM CHLORIDE 0.9% IV ONE (10:01)
[2023-10-25] MEDS: POTASSIUM PHOSPHATE IV ONE (10:01)
[2023-10-25] MEDS: POTASSIUM CHLORIDE CRTAB 20 MEQ TABCR PO SCH (11:11)
--- NOTE | 2023-10-25 13:46 | Discharge Summary ---
Date of Service October 25, 2023 Admission HPI Per Admitting Provider This is an 82yo F with a PMH of SVT, HTN, CAD, CKD III, history of PFO, dyslipidemia and other medical problems listed below who was directed in from PCP for abnormal outpatient labwork. Patient was directed to primary care from nephrology due to large hematuria and bacteria noted on outpatient labs that appear to chronic. Denies any urinary symptoms. Followed up yesterday with PCP and had basic outpatient lab work, which revealed critically low K of 2.4. Dr. Bello called patient and directed her to ED for further evaluation. Patient states she has been feeling well and denies any lightheadedness, palpit ations, chest pain, nausea or vomiting. Did stop taking potassium diuretic in March 2023 as directed by nephrology. Taking all other medications as prescribed. Has been taking spironolactone since March 2023. Denies any fever, chills, headache, shortness of breath, abdominal pain, dysuria, hematuria, diarrhea or constipation. Admission Exam Per Admitting Provider GENERAL APPEARANCE: AxOx4, generally well-appearing female no acute distress. HEENT: NC, AT. MMM. EOMI, clear conjunctiva, oropharynx clear. NECK: Supple without lymphadenopathy. No stiffness or restricted ROM. HEART: Normal rate and regular rhythm, normal S1/S1, no m/r/g LUNGS: CTAB, moving air well. No crackles or wheezes are heard. ABDOMEN: Soft, nontender, nondistended with good bowel sounds heard. BACK: No CVAT, no obvious deformity. EXTREMITIES: Without cyanosis, clubbing or edema. NEUROLOGICAL: Grossly nonfocal. Alert and oriented, moving all 4 extremities. CN not formally tested but appear grossly intact. Observed to ambulate with normal gait. Skin: Warm and dry without any rash. Principal Diagnosis Hypokalemia New onset left bundle branch block Discharge Exam Constitutional: Alert oriented x 3; not in distress. Respiratory: normal respiratory effort, lungs clear to auscultation, no wheeze, rales, rhonchi. Normal insp/exp effort, no accessory muscle use Cardiovascular: RRR, no murmur, no edema Vessels: no JVD or carotid bruit Chest: normal inspection of chest Abdomen: normal bowel sounds, soft, nontender, no hepatosplenomegaly Musculoskeletal: no cyanosis or clubbing, extremities motor strength 5/5 Skin: no rashes, warm and dry normal turgor Neurologic: PERRL, EOMI, accommodation nl, no face palsy, no dysarthria CN's II- XI intact bilaterally and moves all extremities Psychiatric: A+Ox3, euthymic affect Discharge Data Allergies Allergy/AdvReac Type Severity Reaction Status Date / Time oxycodone Allergy Nausea Verified 11/28/22 13:51 Consultations 10/23/23 11:59 ED Decision to Admit Stat 10/23/23 14:38 Consult Cardiology Routine Consult Nephrology Routine Hospital Course (1) Hypokalemia: (2) CKD (chronic kidney disease), stage III: (3) Hypertension: This is an 82yo F with a PMH of SVT, HTN, CAD, CKD III, history of PFO, dyslipidemia and other medical problems listed below who was directed in from PCP for abnormal outpatient labwork. Serum potassium of 2.3 on admission Patient denies any diarrhea, nausea or vomiting suggesting GI loss. Likely related to increased urinary loss/decreased intake. During the hospitalization, electrolytes including potassium and phosphorus were repleted. Nephrology was consulted for comanagement. Spironolactone dose was increased to 25 mg twice daily and patient was recommended to be on potassium chloride tablets 20 mEq 3 times a day. On the day of the discharge, her potassium was 3.9 Patient has a follow-up set up with her primary care doctor; patient will need to have repeat BMP to check on her kidney function and potassium at discharge. (4) Left bundle branch block (LBBB): Noted on EKG on admission EKG with NSR, LAD, LBBB which appears new Echocardiogram shows EF of 55 to 60% with mild concentric LVH Cardiology was consulted for comanagement for evaluation. They recommended to add amlodipine 5mg once a dayto her blood pressure medication regimen Patient to follow-up with cardiology as outpatient Please note the above document was generated using voice recognition software. It may contain grammatical, syntax or spelling errors. Any formal questions or concerns about the content, text or information contained within the body of this dictation should be directly addressed to the provider for clarification Total Time Total Time Spent Total Time Spent (In Minutes): 35 Total Time Includes: Examination of the Patient, Discharge Planning, Medication Reconciliation, Communication With Other Providers and Other Discharge Plan Discharge Items Patient Disposition: Home - Self-Care Reason For Visit: HYPOKALEMIA Discharge Diagnosis: Hypokalemia Activity: Resume your previous activity Non-emergency contact: Primary Care Provider Call non-emergency contact if: you have any medication questions and your symptoms worsen Follow-up/Referrals: Rebeca Swift DO [Primary Care Provider] - (Date & Time 10/28/2023 8:20 AM Provider Byron Galindo MD Department Family Medicine [facility] ) Diet: Regular Addtl Attending Provider Instructions: You were admitted to the hospital due to low potassium level and high blood pressure. Following changes has been made to her medication regimen: 1) Amlodipine 5mg once a day. 2) Spironolactone frequency was increased from once a day to 2 times a day. 3) Potassium chloride tablets 20 mEq are prescribed. Please take it 3 times a day. You will have follow-up set up for you with your primary care doctor. You will need repeat blood test to check on your kidney function and potassium level. You are also evaluated by cardiology due to changes in your EKG. He will need outpatient follow-up with them and stress test as outpatient. Pending Studies at Discharge: No Stand-Alone Forms: [employer] Smoking Cessation Medications and DC Order Prescriptions: New spironolactone 25 mg Tablet 25 mg PO BID Qty: 60 0RF potassium chloride 20 mEq Tablet,Er Particles/Crystals 20 meq PO TID Qty: 90 0RF amlodipine 5 mg tablet 5 mg PO DAILY Qty: 30 0RF Continued lisinopril 20 mg tablet 40 mg PO DAILY aspirin 81 mg Tablet,Chewable 81 mg PO DAILY ferrous sulfate 325 mg (65 mg iron) Tablet,Delayed Release (Dr/Ec) 325 mg PO QAM Qty: 30 0RF docusate sodium 100 mg Capsule 100 mg PO BID PRN (Reason: constipation) Qty: 60 0RF polyethylene glycol 3350 [Miralax] 17 gram Powder In Packet 17 g PO DAILY PRN (Reason: constipation) Qty: 30 0RF carvedilol 3.125 mg Tablet 3.125 mg PO BID Rx Instructions: must administer with a meal/food ascorbic acid (vitamin C) [Vitamin C] 500 mg Tablet 500 mg PO DAILY vitamin E 400 unit Tablet 400 unit PO DAILY vitamin B complex Tablet 1 tab PO DAILY loratadine 10 mg Tablet 10 mg PO DAILY PRN (Reason: allergies) rosuvastatin 40 mg tablet 40 mg PO DAILY cholecalciferol (vitamin D3) [Vitamin D3] 50 mcg (2,000 unit) Tablet 50 mcg PO DAILY coQ10 (ubiquinol) 200 mg Capsule 200 mg PO DAILY Discontinued spironolactone 25 mg Tablet 25 mg PO DAILY Discharge Orders: Discharge Order (Routine); Ordered 10/25/23 Ordered By: Zachery Hardy Admission Data Admit Date/Time: 10/23/23 12:23 Attending Provider: Zachery Hardy Admit Provider: Misty Hawkins Primary Care Provider: Rebeca Swift Other Providers: Misty Hawkins; Ravindra Carbajal Roshan Other Interventions: Discharge Summary Assessment (RN) Last Done: 10/25/23 13:28
[2023-10-25] MEDS ORDERED: POTASSIUM CHLORIDE CRTAB 20 MEQ TABCR PO SCH (21:00)
[2023-10-26] MEDS ORDERED: ROSUVASTATIN CALCIUM 20 MG TAB PO SCH (09:00)
== END 2023-10-25 14:54 | disposition home or self-care (01) | DRG 641 ==
LOC: ED 10:08 → EDINP 12:23 → SUATTDRO 12:23 → 2S 13:56